=== PATIENT | female | born 1960 | race Caucasian/White ===

== ENCOUNTER 2016-10-20 15:41 | Observation (INO) | payer SELFPAY ==
[~2016-10-20] VITALS: Ht 162.6 cm; Wt 77.3 kg
[~2016-10-20 15:41] MED LIST: CETI5TAB2 PO; CIPR500T2 PO; CYCL1PAK PO; LEVO.1 PO; NORV10TA PO
[2016-10-20 15:42] VITALS: BP 151/82; PULSE 77; RESP 14; TEMP 97.7; O2SAT 97
[2016-10-20] MEDS ORDERED: VENTAER INH (16:47)
[2016-10-20] MEDS ORDERED: AMLO10 PO (16:47)
[2016-10-20] MEDS ORDERED: LEVO.1 PO (16:47)
[2016-10-20] MEDS ORDERED: EPINEPHrine HCL (1:1000) 1 MG/ML VIAL IM ONE (17:00)
[2016-10-20] MEDS ORDERED: DEXAMETHASONE SOD PHOS 20 MG/5 ML VIAL IM ONE (17:00)
[2016-10-20] MEDS ORDERED: diphenhydrAMINE HCL 50 MG/ML VIAL IV PUSH ONE (17:00)
[2016-10-20 17:28] LABS: AUTOMATED NEUTROPHIL # 3.6 TH/MM3 (1.8-7.7); BASOPHIL # 0.1 TH/MM3 (0-0.2); BASOPHIL % 1.1 % (0.0-2.0); EOSINOPHIL # 0.2 TH/MM3 (0-0.4); EOSINOPHIL % 3.1 % (0.0-4.0); HEMATOCRIT 29.9 % (35.0-46.0); HEMO FLAGS DIFF FINAL; LYMPH % 37.8 % (9.0-44.0); LYMPHOCYTE # 2.6 TH/MM3 (1.0-4.8); MEAN CELL VOLUME 87.3 FL (80.0-100.0); MEAN CORPUSCULAR HEMOGLOBIN 30.5 PG (27.0-34.0); MEAN CORPUSCULAR HGB CONC 34.9 % (32.0-36.0); MONO % 5.8 % (0.0-8.0); NEUT % 52.2 % (16.0-70.0); PLATELET COUNT 231 TH/MM3 (150-450); RED BLOOD COUNT 3.42 MIL/MM3 (4.00-5.30); RED CELL DISTRIBUTION WIDTH 15.7 % (11.6-17.2); WHITE BLOOD COUNT 6.8 TH/MM3 (4.0-11.0)
[2016-10-20 17:34] LABS: BACTERIA, URINE RARE /hpf; BLOOD, URINE NEG (NEG); COMMENT (UR) CULT NOT INDICATED; CULTURE IF INDICATED CULT NOT INDICATED; GLUCOSE,URINE NEG (NEG); KETONE, URINE NEG (NEG); MUCUS URINE FEW /lpf (OCC); NITRITE,URINE NEG (NEG); PH, URINE 5.5 (5.0-8.5); SQUAMOUS EPITHELIAL CELL URINE 1 /hpf (0-5); URINE COLOR LIGHT-YELLOW (YELLW/STRAW)
[2016-10-20 17:37] LABS: BICARBONATE 26.1 MEQ/L (21.0-32.0)
[2016-10-20 17:38] LABS: POTASSIUM 4.2 MEQ/L (3.5-5.1)
--- NOTE | 2016-10-20 18:00 | PD ---
HPI Chief Complaint: Complaint Time Seen by Provider: 16:31 Travel History International Travel<30 days: No Contact w/Intl Traveler<30days: No Traveled to known affect area: No History of Present Illness HPI 55-year-old female came to the emergency room with history of multiple unrelated complain like URI symptoms, lower back pain and cough. However as she was speaking her speech appeared quite dysarthric and she seemed to have lower lip and tongue swelling. Upon asking patient said that she has noted this swelling as well but wasn't sure. No history of fever or chills. Patient says she was diagnosed with UTI 1 month ago at [facility] and was treated with antibiotics then. She is finished with the antibiotic course. She did not appear to be in severe respiratory distress. [facility] Past Medical History Narrative Medical List of her past medical history was reviewed from the nursing note. Arthritis: Yes Asthma: Yes Blood Disorders: No Cancer: No Hypertension: Yes Implanted Vascular Access Dvce: No Musculoskeletal: Yes (BACK PAIN) Thyroid Disease: Yes Ulcer: Yes PNEUMOCCOCAL Vaccine (Year): 2 ?: Not Menopausal: Yes Past Surgical History Eye Surgery: Yes (LEFT EYE) Other Surgery: Yes (SUTURES IN RIGHT LEG) Social History Alcohol Use: Yes (2 X A YEAR) Tobacco Use: No Substance Use: No Allergies-Medications (Allergen,Severity, Reaction): Coded Allergies: Bactrim (Verified Allergy, Severe, 10/19/15) Tomato (Verified Allergy, Intermediate, 10/19/15) Uncoded Allergies: wool (Adverse Reaction, Intermediate, 05/02/10) Comments List of her allergies reviewed from the nursing note. Reported Meds & Prescriptions Reported Meds & Active Scripts Active Reported Ventolin Hfa 18 GM Inh (Albuterol Sulfate) 90 Mcg/Act Aer 1 Puff INH Q4H PRN Synthroid (Levothyroxine Sodium) 100 Mcg Tab 100 Mcg PO DAILY Norvasc (Amlodipine Besylate) 10 Mg Tab 10 Mg PO DAILY Narrative Medication List of her home medications reviewed from the nursing note. Review of Systems Except as stated in HPI: all other systems reviewed are Neg Physical Exam Narrative GENERAL: Awake, alert, mild distress SKIN: Warm and dry. Pale HEAD: Atraumatic. Normocephalic. EYES: Pupils equal and round. No scleral icterus. No injection or drainage. ENT: No nasal bleeding or discharge. Mucous membranes pink and moist. Lower lip swelling, tongue swelling, airway Mallampati 4, soft palate and uvula swollen NECK: Trachea midline. No JVD. CARDIOVASCULAR: Regular rate and rhythm. No murmur appreciated. RESPIRATORY: No accessory muscle use. Clear to auscultation. Breath sounds equal bilaterally. GASTROINTESTINAL: Abdomen soft, non-tender, nondistended. Hepatic and splenic margins not palpable. MUSCULOSKELETAL: No obvious deformities. No clubbing. No cyanosis. No edema. NEUROLOGICAL: Awake and alert. No obvious cranial nerve deficits. Motor grossly within normal limits. Normal speech. PSYCHIATRIC: Appropriate mood and affect; insight and judgment normal. Data Data Last Documented VS Vital Signs Date Time Temp Pulse Resp B/P Pulse Ox O2 Delivery O2 Flow Rate FiO2 10/20/16 18:05 68 18 10/20/16 18:05 128/87 97 Nasal Cannula 2 10/20/16 15:42 97.7 Orders Epinephrine (1:1000) Inj (Adrenalin (1:1 (10/20/16 17:00) Dexamethasone Inj (Decadron Inj) (10/20/16 17:00) Diphenhydramine Inj (Benadryl Inj) (10/20/16 17:00) Complete Blood Count With Diff (10/20/16 16:51) Basic Metabolic Panel (Bmp) (10/20/16 16:51) Urinalysis - C+S If Indicated (10/20/16 16:51) Type And Screen (10/20/16 16:53) Ct Soft Tiss Neck W/O Iv Cont (10/20/16 ) Admit Order (Ed Use Only) (10/20/16 18:20) Labs Laboratory Tests Test 10/20/16 16:58 White Blood Count 6.8 TH/MM3 Red Blood Count 3.42 MIL/MM3 Hemoglobin 10.4 GM/DL Hematocrit 29.9 % Mean Corpuscular Volume 87.3 FL Mean Corpuscular Hemoglobin 30.5 PG Mean Corpuscular Hemoglobin 34.9 % Concent Red Cell Distribution Width 15.7 % Platelet Count 231 TH/MM3 Mean Platelet Volume 8.2 FL Neutrophils (%) (Auto) 52.2 % Lymphocytes (%) (Auto) 37.8 % Monocytes (%) (Auto) 5.8 % Eosinophils (%) (Auto) 3.1 % Basophils (%) (Auto) 1.1 % Neutrophils # (Auto) 3.6 TH/MM3 Lymphocytes # (Auto) 2.6 TH/MM3 Monocytes # (Auto) 0.4 TH/MM3 Eosinophils # (Auto) 0.2 TH/MM3 Basophils # (Auto) 0.1 TH/MM3 CBC Comment DIFF FINAL Differential Comment Urine Color LIGHT-YELLOW Urine Turbidity CLEAR Urine pH 5.5 Urine Specific [place] 1.010 Urine Protein NEG mg/dL Urine Glucose (UA) NEG mg/dL Urine Ketones NEG mg/dL Urine Occult Blood NEG Urine Nitrite NEG Urine Bilirubin NEG Urine Urobilinogen LESS THAN 2.0 MG/DL Urine Leukocyte Esterase MOD Urine RBC LESS THAN 1 /hpf Urine WBC 6 /hpf Urine Squamous Epithelial 1 /hpf Cells Urine Bacteria RARE /hpf Urine Mucus FEW /lpf Microscopic Urinalysis Comment CULT NOT INDICATED Sodium Level 138 MEQ/L Potassium Level 4.2 MEQ/L Chloride Level 104 MEQ/L Carbon Dioxide Level 26.1 MEQ/L Anion Gap 8 MEQ/L Blood Urea Nitrogen 20 MG/DL Creatinine 1.65 MG/DL Estimat Glomerular Filtration 32 ML/MIN Rate Random Glucose 82 MG/DL Calcium Level 9.4 MG/DL Complement C4 27 MG/DL Blood Type A POSITIVE Antibody Screen NEGATIVE Blood Bank Comment MDM Medical Decision Making Medical Screen Exam Complete: Yes Emergency Medical Condition: Yes Medical Record Reviewed: Yes Differential Diagnosis Angioedema Narrative Course 5:56 PM patient was given IV Benadryl, subcutaneous epi and IM Decadron. Blood test results are back and patient has some renal insufficiency. I reevaluated the patient and her soft palate and uvula looks less swollen. Her tongue is still swollen. No respiratory distress. I have ordered a CT scan of her neck. Awaiting for it to be done and resulted. Case was signed over to the oncoming ER physician. Patient will most probably require admission. Critical Care Narrative Aggregate critical care time was 30 minutes. Time to perform other separately billable procedures was not included in the critical care time. My time did not include minutes spent treating any other patients simultaneously or on activities that did not directly contribute to the patient's treatment. The services I provided to this patient were to treat and/or prevent clinically significant deterioration that could result in: Angioedema of upper airway management I provided critical care services requiring my management, as noted below: Chart data review, documentation time, medication orders and management, vital sign assessments/reviewing monitor data, ordering and reviewing lab tests, ordering and interpreting/reviewing x-rays and diagnostic studies, care of the patient and discussion of the patient with the admitting physicians. Procedures EKG Prior to Arrival: No Diagnosis Primary Impression: Angioedema Qualified Code: T78.3XXA - Angioedema, initial encounter Additional Impression: Renal insufficiency Admitting Information Admitting Physician Requests: Admit Hardy Singh MD Oct 20, 2016 18:00
[2016-10-20 18:05] VITALS: BP 128/87; PULSE 69; RESP 18; O2SAT 97
--- NOTE | 2016-10-20 18:20 | PD ---
Physical Exam Narrative Received sign out from previous team to follow up CT scan results and admit patient for angioedema. 55yo F with CKD, HTN on norvasc here with URI symptoms found to have swelling in tongue and lower lip. Unknown how long this has been going on. Pt given epinephrine, dexamethasone and diphenhydramine and as per previous physician, her lower lip swelling has improved. Pt is speaking in complete sentences and lungs are clear. Pt has patent airway at this time. However, will admit to ICU under hospitalist for airway management. Discussed with Dr. Martinez and accepted. CT neck showed no acute findings on cervical spine CT. No adenopathy. Mucosal thickening right maxillary sinus. Calcifications in posterior oropharynx bilaterally of unknown etiology. Data Data Last Documented VS Vital Signs Date Time Temp Pulse Resp B/P Pulse Ox O2 Delivery O2 Flow Rate FiO2 10/20/16 18:05 68 18 10/20/16 18:05 128/87 97 Nasal Cannula 2 10/20/16 15:42 97.7 Orders Epinephrine (1:1000) Inj (Adrenalin (1:1 (10/20/16 17:00) Dexamethasone Inj (Decadron Inj) (10/20/16 17:00) Diphenhydramine Inj (Benadryl Inj) (10/20/16 17:00) Complete Blood Count With Diff (10/20/16 16:51) Basic Metabolic Panel (Bmp) (10/20/16 16:51) Urinalysis - C+S If Indicated (10/20/16 16:51) Type And Screen (10/20/16 16:53) Ct Soft Tiss Neck W/O Iv Cont (10/20/16 ) Admit Order (Ed Use Only) (10/20/16 18:20) Labs Laboratory Tests Test 10/20/16 16:58 White Blood Count 6.8 TH/MM3 Red Blood Count 3.42 MIL/MM3 Hemoglobin 10.4 GM/DL Hematocrit 29.9 % Mean Corpuscular Volume 87.3 FL Mean Corpuscular Hemoglobin 30.5 PG Mean Corpuscular Hemoglobin 34.9 % Concent Red Cell Distribution Width 15.7 % Platelet Count 231 TH/MM3 Mean Platelet Volume 8.2 FL Neutrophils (%) (Auto) 52.2 % Lymphocytes (%) (Auto) 37.8 % Monocytes (%) (Auto) 5.8 % Eosinophils (%) (Auto) 3.1 % Basophils (%) (Auto) 1.1 % Neutrophils # (Auto) 3.6 TH/MM3 Lymphocytes # (Auto) 2.6 TH/MM3 Monocytes # (Auto) 0.4 TH/MM3 Eosinophils # (Auto) 0.2 TH/MM3 Basophils # (Auto) 0.1 TH/MM3 CBC Comment DIFF FINAL Differential Comment Urine Color LIGHT-YELLOW Urine Turbidity CLEAR Urine pH 5.5 Urine Specific [place] 1.010 Urine Protein NEG mg/dL Urine Glucose (UA) NEG mg/dL Urine Ketones NEG mg/dL Urine Occult Blood NEG Urine Nitrite NEG Urine Bilirubin NEG Urine Urobilinogen LESS THAN 2.0 MG/DL Urine Leukocyte Esterase MOD Urine RBC LESS THAN 1 /hpf Urine WBC 6 /hpf Urine Squamous Epithelial 1 /hpf Cells Urine Bacteria RARE /hpf Urine Mucus FEW /lpf Microscopic Urinalysis Comment CULT NOT INDICATED Sodium Level 138 MEQ/L Potassium Level 4.2 MEQ/L Chloride Level 104 MEQ/L Carbon Dioxide Level 26.1 MEQ/L Anion Gap 8 MEQ/L Blood Urea Nitrogen 20 MG/DL Creatinine 1.65 MG/DL Estimat Glomerular Filtration 32 ML/MIN Rate Random Glucose 82 MG/DL Calcium Level 9.4 MG/DL Blood Type A POSITIVE Antibody Screen NEGATIVE Blood Bank Comment MDM Supervised Visit with ABHISHEK: No Diagnosis Primary Impression: Angioedema Qualified Code: T78.3XXA - Angioedema, initial encounter Additional Impression: Renal insufficiency Admitting Information Admitting Physician Requests: Admit Desiree Suarez DO Oct 20, 2016 18:20
--- NOTE | 2016-10-20 19:09 | RADRPT ---
EXAM DATE/TIME: 10/20/2016 18:22 [place] COMPARISON: No previous studies available for comparison. INDICATIONS : Swelling in throat for a month,trouble swallowing. RADIATION DOSE: 33.46 CTDIvol (mGy) MEDICAL HISTORY : Hypertension. Ulcers. Arthritis.Asthma, thyroid disease SURGICAL HISTORY : eye surgery ENCOUNTER: Initial ACUITY: 1 month PAIN SCORE: 0/10 LOCATION: neck TECHNIQUE: Volumetric scanning of the neck was performed. Using automated exposure control and adjustment of th e mA and/or kV according to patient size, radiation dose was kept as low as reasonably achievable to obtain optimal diagnostic quality images. FINDINGS: No airway obstructing lesions or foreign bodies are identified. No pathologically enlarged lymph node s are seen in the neck. Salivary glands are symmetric. There is mucosal thickening in the right maxil harriet sinus. Remainder of the paranasal sinuses are unremarkable. Mastoid air cells are clear. There i s moderate degenerative change in the cervical spine. Lung apices are clear. CONCLUSION: 1. No acute findings on cervical spine CT. No adenopathy. Mucosal thickening right maxillary sinus. C alcifications in the posterior oropharynx bilaterally of unknown etiology. Leodan Velasquez MD on October 20, 2016 at 19:03 Board Certified Radiologist. This report was verified electronically.
--- NOTE | 2016-10-20 19:36 | HHI.HP ---
[facility] Service [facility] Primary Care Physician No Primary Care Physician Admission Diagnosis Angioedema Diagnoses: Travel History International Travel<30 Days: No Contact w/Intl Traveler <30 Da: No Traveled to Known Affected Are: No Past Family Social History Allergies: Coded Allergies: Bactrim (Verified Allergy, Severe, 10/19/15) Tomato (Verified Allergy, Intermediate, 10/19/15) Uncoded Allergies: wool (Adverse Reaction, Intermediate, 05/02/10) Physical Exam Vital Signs Vital Signs Date Time Temp Pulse Resp B/P Pulse Ox O2 Delivery O2 Flow Rate FiO2 10/20/16 18:05 68 18 10/20/16 18:05 69 18 128/87 97 Nasal Cannula 2 10/20/16 15:42 97.7 77 14 151/82 97 Room Air Physical Exam GENERAL: This is a well-nourished, well-developed patient, in no apparent distress. SKIN: No rashes, ecchymoses or lesions. Cool and dry. HEAD: Atraumatic. Normocephalic. No temporal or scalp tenderness. EYES: Pupils equal round and reactive. Extraocular motions intact. No scleral icterus. No injection or drainage. ENT: Nose without bleeding, purulent drainage or septal hematoma. Throat without erythema, tonsillar hypertrophy or exudate. Uvula midline. Airway patent. NECK: Trachea midline. No JVD or lymphadenopathy. Supple, nontender, no meningeal signs. CARDIOVASCULAR: Regular rate and rhythm without murmurs, gallops, or rubs. RESPIRATORY: Clear to auscultation. Breath sounds equal bilaterally. No wheezes , rales, or rhonchi. GASTROINTESTINAL: Abdomen soft, non-tender, nondistended. No hepato-splenomegaly , or palpable masses. No guarding. MUSCULOSKELETAL: Extremities without clubbing, cyanosis, or edema. No joint tenderness, effusion, or edema noted. No calf tenderness. Negative Homans sign bilaterally. NEUROLOGICAL: Awake and alert. Cranial nerves II through XII intact. Motor and sensory grossly within normal limits. Five out of 5 muscle strength in all muscle groups. Normal speech. Laboratory Laboratory Tests Test 10/20/16 16:58 White Blood Count 6.8 Red Blood Count 3.42 Hemoglobin 10.4 Hematocrit 29.9 Mean Corpuscular Volume 87.3 Mean Corpuscular Hemoglobin 30.5 Mean Corpuscular Hemoglobin 34.9 Concent Red Cell Distribution Width 15.7 Platelet Count 231 Mean Platelet Volume 8.2 Neutrophils (%) (Auto) 52.2 Lymphocytes (%) (Auto) 37.8 Monocytes (%) (Auto) 5.8 Eosinophils (%) (Auto) 3.1 Basophils (%) (Auto) 1.1 Neutrophils # (Auto) 3.6 Lymphocytes # (Auto) 2.6 Monocytes # (Auto) 0.4 Eosinophils # (Auto) 0.2 Basophils # (Auto) 0.1 CBC Comment DIFF FINAL Differential Comment Urine Color LIGHT-YELLOW Urine Turbidity CLEAR Urine pH 5.5 Urine Specific [place] 1.010 Urine Protein NEG Urine Glucose (UA) NEG Urine Ketones NEG Urine Occult Blood NEG Urine Nitrite NEG Urine Bilirubin NEG Urine Urobilinogen LESS THAN 2.0 Urine Leukocyte Esterase MOD Urine RBC LESS THAN 1 Urine WBC 6 Urine Squamous Epithelial 1 Cells Urine Bacteria RARE Urine Mucus FEW Microscopic Urinalysis Comment CULT NOT INDICATED Sodium Level 138 Potassium Level 4.2 Chloride Level 104 Carbon Dioxide Level 26.1 Anion Gap 8 Blood Urea Nitrogen 20 Creatinine 1.65 Estimat Glomerular Filtration 32 Rate Random Glucose 82 Calcium Level 9.4 Blood Type A POSITIVE Antibody Screen NEGATIVE Blood Bank Comment Result Diagram: 10/20/16 1658 10/20/16 165 Physician Certification Order for Inpatient Services The services are ordered in accordance with Medicare regulations or non- Medicare payer requirements, as applicable. In the case of services not specified as inpatient-only, they are appropriately provided as inpatient services in accordance with the 2-midnight benchmark. days is the estimated time the patient will need to remain in the hospital, assuming treatment plan goals are met and no additional complications. Radha Aranda MD Oct 20, 2016 19:36
[2016-10-20] MEDS ORDERED: SODIUM CHLORIDE 0.9% FLUSH 5 ML FLUSH FLUSH PRN (19:45)
[2016-10-20] MEDS ORDERED: ONDANSETRON HCL 4 MG/2 ML VIAL IVP PRN (19:45)
[2016-10-20] MEDS ORDERED: MORPHINE SULFATE 4 MG/ML INJ IV PRN (19:45)
[2016-10-20] MEDS ORDERED: CHLORHEXIDINE GLUCONATE 2 % 1 PACK (2 CLOTHS) TOP PRN (19:45)
[2016-10-20] MEDS ORDERED: ACETAMINOPHEN 325 MG TAB PO PRN (19:45)
[2016-10-20] MEDS ORDERED: MISCELLANEOUS NURSING INFORMATION XX SCH (19:45)
[2016-10-20] MEDS ORDERED: BISACODYL 10 MG SUPP PR PRN (19:45)
[2016-10-20] MEDS ORDERED: cefTRIAXone INJ 1,000 MG in SODIUM CHLORIDE 0.9% INJ 100 ML IV SCH (20:00)
[2016-10-20] MEDS ORDERED: PANTOPRAZOLE SODIUM 40 MG VIAL IV PUSH SCH (20:00)
--- NOTE | 2016-10-20 20:26 | HHI.HP ---
[facility] No Primary Care Physician Admission Diagnosis Angioedema Diagnoses: (1) Angioedema Diagnosis: Principal (2) UTI (urinary tract infection) Diagnosis: Principal (3) Renal insufficiency Diagnosis: Principal (4) HTN (hypertension) Diagnosis: Principal Travel History International Travel<30 Days: No Contact w/Intl Traveler <30 Da: No Traveled to Known Affected Are: No History of Present Illness This is a 55-year-old female with a PMH of HTN and Hypothyroidism who presented to the ER with complaints of right flank pain, cough and congestion which has been ongoing x4 wks. Per pt was diagnosed w/ UTI 1 month ago while at [facility] and was given Cipro which she completed. While in ER, pt noted to have some difficulty w/ speech and evidence of angioedema w/ soft palate and uvula swelling. S/p Decadron, Benadryl and Epinephrine in ER. Pt without any complaints of lip swelling, no previous history of similar symptoms. Not on STEPHANIE -I at home. On arrival, BP 151/82, HR 77, O2 sat 97% on RA, Afebrile. CBC unremarkable. Creatinine 1.65, previously 1.17 on 10/20/15. UA with UTI. CT Neck with no acute findings. O2 sat stable in ER w/ no airway compromise. Review of Systems ROS: 14 point review of systems otherwise negative. Past Family Social History Past Medical History PMH: HTN and Hypothyroidism Past Surgical History PAST SURGICAL HISTORY: Left Eye Surgery Allergies: Coded Allergies: Bactrim (Verified Allergy, Severe, 10/19/15) Tomato (Verified Allergy, Intermediate, 10/19/15) Uncoded Allergies: wool (Adverse Reaction, Intermediate, 05/02/10) Family History PAST FAMILY HISTORY: Reviewed. No h/o DM or CAD Social History PAST SOCIAL HISTORY: Occasional alcohol. Negative for tobacco or drugs. Physical Exam Vital Signs Vital Signs Date Time Temp Pulse Resp B/P Pulse Ox O2 Delivery O2 Flow Rate FiO2 10/20/16 18:05 68 18 10/20/16 18:05 69 18 128/87 97 Nasal Cannula 2 10/20/16 15:42 97.7 77 14 151/82 97 Room Air Physical Exam PE: GENERAL: Middle-aged white female in no acute distress. Speaking in clear sentences. HEENT: PERRLA, EOMI. No scleral icterus or conjunctival pallor. No lid lag or facial droop. Speech/lip swelling improved. CARDIOVASCULAR: Regular rate and rhythm. No obvious murmurs to auscultation. No chest tenderness to palpation. RESPIRATORY: No obvious rhonchi or wheezing. Clear to auscultation. Breath sounds equal bilaterally. GASTROINTESTINAL: Abdomen soft, non-tender, nondistended. BS normal. MUSCULOSKELETAL: Extremities without clubbing, cyanosis, or edema. No obvious deformities. NEUROLOGICAL: Awake, alert and oriented x4. No focal neurologic deficits. Moving both upper and lower extremities spontaneously. Laboratory Laboratory Tests Test 10/20/16 16:58 White Blood Count 6.8 Red Blood Count 3.42 Hemoglobin 10.4 Hematocrit 29.9 Mean Corpuscular Volume 87.3 Mean Corpuscular Hemoglobin 30.5 Mean Corpuscular Hemoglobin 34.9 Concent Red Cell Distribution Width 15.7 Platelet Count 231 Mean Platelet Volume 8.2 Neutrophils (%) (Auto) 52.2 Lymphocytes (%) (Auto) 37.8 Monocytes (%) (Auto) 5.8 Eosinophils (%) (Auto) 3.1 Basophils (%) (Auto) 1.1 Neutrophils # (Auto) 3.6 Lymphocytes # (Auto) 2.6 Monocytes # (Auto) 0.4 Eosinophils # (Auto) 0.2 Basophils # (Auto) 0.1 CBC Comment DIFF FINAL Differential Comment Urine Color LIGHT-YELLOW Urine Turbidity CLEAR Urine pH 5.5 Urine Specific [place] 1.010 Urine Protein NEG Urine Glucose (UA) NEG Urine Ketones NEG Urine Occult Blood NEG Urine Nitrite NEG Urine Bilirubin NEG Urine Urobilinogen LESS THAN 2.0 Urine Leukocyte Esterase MOD Urine RBC LESS THAN 1 Urine WBC 6 Urine Squamous Epithelial 1 Cells Urine Bacteria RARE Urine Mucus FEW Microscopic Urinalysis Comment CULT NOT INDICATED Sodium Level 138 Potassium Level 4.2 Chloride Level 104 Carbon Dioxide Level 26.1 Anion Gap 8 Blood Urea Nitrogen 20 Creatinine 1.65 Estimat Glomerular Filtration 32 Rate Random Glucose 82 Calcium Level 9.4 Blood Type A POSITIVE Antibody Screen NEGATIVE Blood Bank Comment Result Diagram: 10/20/16165710/20/168 Assessment and Plan Problem List: (1) Angioedema ICD Code: T78.3XXA Status: Acute (2) UTI (urinary tract infection) ICD Code: N39.0 Status: Acute (3) Renal insufficiency ICD Code: N28.9 Status: Acute (4) HTN (hypertension) ICD Code: I10 Status: Acute Assessment and Plan A/P: 1. Angioedema: +dysarthria w/ soft palate and uvula swelling noted on arrival , O2 sat normal, s/p Decadron, Benadryl and Epinephrine w/ improvement, dysarthria now resolved. CT Neck w/ no acute findings, images reviewed by me. Will admit to ICU for close monitoring. Continue w/ Decadron, Benadryl and Protonix. IVF for hydration. 2. UTI: Recurrent. H/o UTI approx 1 month ago w/ completion of antibiotics. U/a w/ UTI. Start IV Rocephin. 3. Renal Insufficiency: Acute on Chronic. Creatinine 1.65, previously 1.17 on 10/20/15. IVF, repeat labs in am. 4. HTN: BP 150's on arrival, currently 128/87, HR 69. Will monitor. 5. DVT Prophylaxis: SCD/Teds. 6. Social work for d/c planning as needed. 7. Case discussed w/ ER physician at length. Problem Qualifiers (1) Angioedema: Qualified Code: T78.3XXA - Angioedema, initial encounter Radha Aranda MD Oct 20, 2016 20:26
--- NOTE | 2016-10-20 20:34 | PD.CONS ---
HPI Service Critical Care Medicine Consult Requested By Dr. Aranda Reason for Consult Angioedema? Posterior OP calcification Primary Care Physician No Primary Care Physician History of Present Illness 55-year-old female. Date of admission 10/20/2016. Date of consultation 2016. Past medical history includes HTN and Hypothyroidism who today she who presented to the ER with complaints of right flank pain, left knee pain cough and congestion which has been ongoing x4 wks. she was diagnosed with an infection 1 month ago while at [facility] and was given Cipro which she completed. She takes acetaminophen for knee pain. Denied urticaria. While in ER, pt noted to have some difficulty w/ speech and evidence of bradykinin induced angioedema w/ mucosal lip/tongue and uvula swelling. S/p Decadron 10 mg IM, Benadryl 50 mg IV and Epinephrine 0.3 mg I am in ER. CT neck revealed possible calcification post oropharynx. Airways patent. She is currently on nasal cannula distress. Creatinine 1.65, previously 1.17 on 10/20. UA with UTI. O2 sat stable in ER w/ no airway compromise. Review of Systems Constitutional: COMPLAINS OF: Fatigue, DENIES: Fever, Weight gain, Weight loss Endocrine: DENIES: Abnorml menstrual pattern Eyes: DENIES: Blurred vision, Double Vision Ears, nose, mouth, throat: COMPLAINS OF: Nasal discharge, Throat pain, Odynophagia, DENIES: Hearing loss, Oral lesions Respiratory: COMPLAINS OF: Cough, Sputum production, DENIES: Apneas, Shortness of breath Cardiovascular: DENIES: Chest pain Gastrointestinal: DENIES: Abdominal pain, Diarrhea Musculoskeletal: COMPLAINS OF: Joint pain, DENIES: Joint Swelling Integumentary: DENIES: Abnormal pigmentation Hematologic/lymphatic: DENIES: Bruising Immunologic/allergic: DENIES: Urticaria Neurologic: DENIES: Abnormal gait Psychiatric: DENIES: Anxiety, Confusion Past Family Social History Allergies: Coded Allergies: Bactrim (Verified Allergy, Severe, 10/19/15) Tomato (Verified Allergy, Intermediate, 10/19/15) Uncoded Allergies: wool (Adverse Reaction, Intermediate, 05/02/10) Past Medical History Hypertension Hypothyroidism Mild intermittent asthma Gastroesophageal reflux disease Osteoarthritis Past Surgical History Left eye Left knee Reported Medications Synthroid 100 g daily Norvasc 10 mg daily Albuterol as needed Active Ordered Medications Reviewed in EMR Family History Mother and father is not contributory to history of present illness Social History Denies Tobacco, alcohol and IV drug use Physical Exam Vital Signs Vital Signs Date Time Temp Pulse Resp B/P Pulse Ox O2 Delivery O2 Flow Rate FiO2 10/20/16 18:05 68 18 10/20/16 18:05 69 18 128/87 97 Nasal Cannula 2 10/20/16 15:42 97.7 77 14 151/82 97 Room Air Physical Exam GENERAL: 55-year-old female, currently resting in bed in no acute distress SKIN: Warm and dry. No rash HEAD: Atraumatic. Normocephalic. EYES: Pupils equal and round around 3 mm bilaterally and reactive. No scleral icterus. No injection or drainage. ENT: No nasal bleeding or discharge. Mucous membranes pink and moist. Oropharynx is patent. No erythema or swelling noted. Lips are not swollen. Tongue is not swollen. Uvula is midline and not swollen appreciated NECK: Trachea midline. No JVD. CARDIOVASCULAR: Regular rate and rhythm. S1, S2. No S4. RESPIRATORY: Clear to auscultation. Breath sounds equal bilaterally. GASTROINTESTINAL: Abdomen soft, non-tender, nondistended. Hypoactive bowel sounds MUSCULOSKELETAL: Extremities without significant peripheral edema. No obvious deformities. NEUROLOGICAL: Awake and alert. No obvious cranial nerve deficits. Motor grossly within normal limits. Five out of 5 muscle strength in the arms and legs. Normal speech. PSYCHIATRIC: Appropriate mood and affect; insight and judgment normal. Laboratory Laboratory Tests Test 10/20/16 16:58 White Blood Count 6.8 Red Blood Count 3.42 Hemoglobin 10.4 Hematocrit 29.9 Mean Corpuscular Volume 87.3 Mean Corpuscular Hemoglobin 30.5 Mean Corpuscular Hemoglobin 34.9 Concent Red Cell Distribution Width 15.7 Platelet Count 231 Mean Platelet Volume 8.2 Neutrophils (%) (Auto) 52.2 Lymphocytes (%) (Auto) 37.8 Monocytes (%) (Auto) 5.8 Eosinophils (%) (Auto) 3.1 Basophils (%) (Auto) 1.1 Neutrophils # (Auto) 3.6 Lymphocytes # (Auto) 2.6 Monocytes # (Auto) 0.4 Eosinophils # (Auto) 0.2 Basophils # (Auto) 0.1 CBC Comment DIFF FINAL Differential Comment Urine Color LIGHT-YELLOW Urine Turbidity CLEAR Urine pH 5.5 Urine Specific [place] 1.010 Urine Protein NEG Urine Glucose (UA) NEG Urine Ketones NEG Urine Occult Blood NEG Urine Nitrite NEG Urine Bilirubin NEG Urine Urobilinogen LESS THAN 2.0 Urine Leukocyte Esterase MOD Urine RBC LESS THAN 1 Urine WBC 6 Urine Squamous Epithelial 1 Cells Urine Bacteria RARE Urine Mucus FEW Microscopic Urinalysis Comment CULT NOT INDICATED Sodium Level 138 Potassium Level 4.2 Chloride Level 104 Carbon Dioxide Level 26.1 Anion Gap 8 Blood Urea Nitrogen 20 Creatinine 1.65 Estimat Glomerular Filtration 32 Rate Random Glucose 82 Calcium Level 9.4 Blood Type A POSITIVE Antibody Screen NEGATIVE Blood Bank Comment Result Diagram: 10/20/16 1658 10/20/16 1658 Imaging Last Impressions Neck CT 10/20/16 0000 Signed Impressions: Service Date/Time: , October 20, 2016 18:22 - CONCLUSION: 1. No acute findings on cervical spine CT. No adenopathy. Mucosal thickening right maxillary sinus. Calcifications in the posterior oropharynx bilaterally of unknown etiology. Leodan Velasquez MD Assessment and Plan Assessment and Plan Neuro/Psych: Acetaminophen for fever [place]/morphine for pain management CV: History of hypertension Angioedema bradykinin induced? Home medication is Norvasc 10 mg by mouth daily. This is been held. Current normal saline at 100 cc an hour. Status post 10 mg Decadron IM, epinephrine 0.3 mg IM and Benadryl 50 mg IV 1. On scheduled H1/H2 blockers and steroids as per primary team.. Monitor her airway was 24 hours. Resp: Nasal cannula to maintain saturations greater than equal to 92% Incentive spirometry while awake CT neck revealed some questionable consultation posterior pharynx. There was currently patent without lip swelling. Possible ENT evaluation. Not indicated stat. GI: History of gastroesophageal reflux disease Currently nothing by mouth. Pepcid for GI prophylaxis : Maciel if indicated for accurate I's and O's Endo: Hypothyroidism Continue Synthroid 100 g by mouth daily Renal: Acute on chronic kidney injury stage II Hydrate with fluids. Recheck creatinine in a.m. Heme: Normocytic anemia Recheck CBC in AM. Monitor trends ID: UTI Placed on Rocephin by primary team. Day #1. Check urine culture Msk: Osteoarthritis left knee PT evaluate and treat FEN: Replace electrolytes as clinically indicated Access - Utilize peripheral IV. Central line if indicated Prophylaxis - GI - Pepcid - DVT - SCD/low risk for DVT Critical Care: The total care time was 45 minutes. Time to perform other separately billable procedures was not included in the critical care time. Level II consult. Code Status Full code Discussed Condition With ED physician. Dr. Suarez. Patient does not meet ICU criteria. We will sign off. cAll if questions arise. Nba Skaggs MD Oct 20, 2016 20:34
[2016-10-20] MEDS: SODIUM CHLOR 0.9% 1000 ML INJ 1,000 ML IV SCH (20:43)
[2016-10-20] MEDS: diphenhydrAMINE HCL 50 MG/ML VIAL IV PUSH SCH (20:44)
[2016-10-20] MEDS: FAMOTIDINE 20 MG/2 ML VIAL IV PUSH SCH (22:30)
[2016-10-20] MEDS: SODIUM CHLORIDE 0.9% FLUSH 5 ML FLUSH FLUSH SCH (22:30)
[2016-10-21] VITALS (8 sets, daily range): BP systolic 115–148; BP diastolic 65–94; PULSE 67–80; RESP 12–21; TEMP 96.9–98.4; O2SAT 97–100
[2016-10-21] MEDS: diphenhydrAMINE HCL 50 MG/ML VIAL IV PUSH SCH ×4 (00:43→11:37)
[2016-10-21] MEDS: methylPREDNISolone SOD SUCC 40 MG/1 ML VIAL IV PUSH SCH ×4 (00:44→21:40)
[2016-10-21] MEDS: CHLORHEXIDINE GLUCONATE 2 % 1 PACK (2 CLOTHS) TOP SCH (04:00)
[2016-10-21 04:20] LABS: AUTOMATED NEUTROPHIL # 6.9 TH/MM3 (1.8-7.7); BASOPHIL % 0.5 % (0.0-2.0); EOSINOPHIL % 0.2 % (0.0-4.0); HEMATOCRIT 30.1 % (35.0-46.0); HEMO FLAGS DIFF FINAL; LYMPH % 12.3 % (9.0-44.0); MEAN CELL VOLUME 88.6 FL (80.0-100.0); MEAN CORPUSCULAR HEMOGLOBIN 29.9 PG (27.0-34.0); MEAN CORPUSCULAR HGB CONC 33.7 % (32.0-36.0); MONO % 1.1 % (0.0-8.0); NEUT % 85.9 % (16.0-70.0); PLATELET COUNT 230 TH/MM3 (150-450); RED CELL DISTRIBUTION WIDTH 15.9 % (11.6-17.2)
[2016-10-21 05:35] LABS: ALKALINE PHOSPHATASE 60 U/L (45-117); ALT (GPT) 37 U/L (10-53); ANION GAP 11 MEQ/L (5-15); AST (GOT) 51 U/L (15-37); BICARBONATE 22.7 MEQ/L (21.0-32.0); BLOOD UREA NITROGEN 17 MG/DL (7-18); CHLORIDE 105 MEQ/L (98-107); GLOMERULAR FILTRATION RATE 32 ML/MIN (>89); SODIUM (NA) 139 MEQ/L (136-145); TOTAL BILIRUBIN ADULT 0.3 MG/DL (0.2-1.0)
[2016-10-21 05:36] LABS: POTASSIUM 4.3 MEQ/L (3.5-5.1)
[2016-10-21] MEDS ORDERED: LEVOTHYROXINE SODIUM 100 MCG TAB PO SCH (06:00)
[2016-10-21] MEDS: SODIUM CHLOR 0.9% 1000 ML INJ 1,000 ML IV SCH ×2 (07:33→15:16)
[2016-10-21] MEDS: SODIUM CHLORIDE 0.9% FLUSH 5 ML FLUSH FLUSH SCH ×2 (09:04→21:41)
[2016-10-21] MEDS: FAMOTIDINE 20 MG/2 ML VIAL IV PUSH SCH ×2 (09:29→21:41)
[2016-10-21] MEDS: ACETAMINOPHEN/HYDROcodone 325 MG/5 MG TAB PO PRN ×3 (11:39→21:41)
--- NOTE | 2016-10-21 13:07 | RADRPT ---
EXAM DATE/TIME: 10/21/2016 12:16 [facility] COMPARISON: No previous studies available for comparison. INDICATIONS : Left knee pain, fall. MEDICAL HISTORY : None. SURGICAL HISTORY : None. ENCOUNTER: Initial ACUITY: 2 months PAIN SCORE: 5/10 LOCATION: Left lateral knee FINDINGS: Four view examination of the left knee demonstrates no evidence of fracture or dislocation. Bony min eralization is normal. The articular surfaces are intact. The suprapatellar soft tissues have a nor mal configuration. CONCLUSION: Negative for fracture or dislocation. Follow up in 7-10 days is suggested if symptoms persist.. Conor Franco MD FACR on October 21, 2016 at 13:04 Board Certified Radiologist. This report was verified electronically.
--- NOTE | 2016-10-21 13:18 | HHI.PR ---
Subjective Remarks Follow-up for angioedema. The patient reports her lip and tongue swelling continues to improve. She's been able to swallow and eat eggs for breakfast. She states she still has a little problem swallowing harder things. She feels fullness/congestion in her upper chest and neck. She denies any problems breathing. She states she was on amoxicillin about a month ago for a cold she had. Otherwise she denies any new medications. She does not currently have a PCP. She is complaining of chronic lower back pain. She states that she had from fall about a month ago, and has been having left knee pain and swelling since then. Objective Vitals Vital Signs Date Time Temp Pulse Resp B/P Pulse Ox O2 Delivery O2 Flow Rate FiO2 10/21/16 08:00 80 15 128/73 98 Nasal Cannula 2 10/21/16 05:06 67 12 118/68 99 Nasal Cannula 2 10/21/16 00:42 72 17 122/83 97 Nasal Cannula 2 10/21/16 00:40 69 15 10/20/16 18:05 68 18 10/20/16 18:05 69 18 128/87 97 Nasal Cannula 2 10/20/16 15:42 97.7 77 14 151/82 97 Room Air Result Diagram: 10/21/16 0356 10/21/16 0356 Imaging Last Impressions Neck CT 10/20/16 0000 Signed Impressions: Service Date/Time: October 18:22 - CONCLUSION: 1. No acute findings on cervical spine CT. No adenopathy. Mucosal thickening right maxillary sinus. Calcifications in the posterior oropharynx bilaterally of unknown etiology. Leodan Velasquez MD Objective Remarks GENERAL: Well-developed well-nourished. In no acute distress. SKIN: Warm and dry. No lesions noted. HEENT: Normocephalic. Pupils equal and round. Mucous membranes pink and moist. Mild lip and tongue swelling. Airway patent. CARDIOVASCULAR: Regular rate and rhythm. No murmur appreciated. RESPIRATORY: No accessory muscle use. Clear to auscultation. Breath sounds equal bilaterally. GASTROINTESTINAL: Abdomen soft, non-tender, nondistended. Bowel sounds x4. MUSCULOSKELETAL: Left knee with a small area of swelling inferior to the left patella. No clubbing or cyanosis. No edema. NEUROLOGICAL: Awake and alert. No focal neurological deficits. Moves upper and lower extremities spontaneously. Normal speech. PSYCHIATRIC: Appropriate mood and affect; insight and judgment normal. A/P Problem List: (1) Angioedema ICD Code: T78.3XXA Status: Acute (2) Renal insufficiency ICD Code: N28.9 Status: Acute (3) HTN (hypertension) ICD Code: I10 Status: Chronic Assessment and Plan 55-year-old female with past medical history of HTN and hypothyroidism who presented with multiple medical complaints, but primarily oral swelling Angioedema: +dysarthria w/ soft palate and uvula swelling noted on arrival, O2 sat normal, s/p Decadron, Benadryl and Epinephrine w/ improvement, dysarthria now resolved. CT Neck w/ no acute findings. Continue w/ IV Solu-Medrol, IV Protonix, IV Benadryl, IV famotidine. Symptoms continue to improve, tolerating diet, no speech or swallowing difficulty Abnormal UA: No specific urinary complaints. Urine not sent for culture. Received IV Rocephin 1. No further antibiotics indicated. HONG on CKD stage III: Creatinine 1.65, previously 1.17 on 10/20/15. Given IVF, no improvement with creatinine on repeat BMP. HTN: Controlled currently. Would hold off on amlodipine with angioedema. Monitor. Hypothyroidism: Chronic. Check TSH. Continue home levothyroxine dose for now. Left knee pain and swelling after recent fall: Check x-ray to rule out fracture. Otherwise plan for OTC pain control. Chronic lower back pain: Check lumbar x-ray. Needs outpatient PCP follow-up, case management consulted. DVT Prophylaxis: SCD/Teds. Written by Hamzah Campbell, acting as scribe for Dr. Issa on 10/21/16 at 13:24. The documentation accurately reflects the work performed [id number] by me Dr. Issa on 10/21/16 at 13:24. Discharge Planning Discharge planning later today if workup remains negative and patient remained stable. Would benefit from community clinic follow-up, case management consulted. Problem Qualifiers (1) Angioedema: Qualified Code: T78.3XXA - Angioedema, initial encounter (2) HTN (hypertension): Qualified Code: I10 - Essential hypertension Hamzah Campbell Oct 21, 2016 13:18 Yakelin Issa MD Oct 21, 2016 16:49
--- NOTE | 2016-10-21 13:26 | RADRPT ---
EXAM DATE/TIME: 10/21/2016 12:04 [facility] COMPARISON: No previous studies available for comparison. INDICATIONS : lower back pain, fall. MEDICAL HISTORY : None. SURGICAL HISTORY : None. ENCOUNTER: Initial ACUITY: 2 months PAIN SCORE: 6/10 LOCATION: Bilateral lumbar FINDINGS: There are five lumbar type vertebral bodies visualized. There is good preservation of vertebral body heights. There is minimal loss of disc space height at L5-S1. Mild facet disease is evident. CONCLUSION: Loss of disc space height at L5-S1 with mild degenerative changes in the facets. Conor Franco MD FACR on October 21, 2016 at 13:13 Board Certified Radiologist. This report was verified electronically.
[2016-10-21] MEDS ORDERED: LEVOTHYROXINE SODIUM 100 MCG VIAL IV PUSH ONE (14:00)
[2016-10-21] MEDS ORDERED: diphenhydrAMINE HCL 50 MG/ML VIAL IV PUSH PRN (15:45)
[2016-10-21 16:08] LABS: HEMOGLOBIN A1a 1.4 %; HEMOGLOBIN A1b 1.5 %; HEMOGLOBIN Ao 84.7 %; HEMOGLOBIN LA1C 2.7 %; HEMOGLOBIN P3 3.7 %
[2016-10-22 01:11] VITALS: BP 135/86; PULSE 67; RESP 21; TEMP 98.4; O2SAT 99
[2016-10-22] MEDS: SODIUM CHLOR 0.9% 1000 ML INJ 1,000 ML IV SCH (01:55)
[2016-10-22] MEDS: CHLORHEXIDINE GLUCONATE 2 % 1 PACK (2 CLOTHS) TOP SCH (03:09)
[2016-10-22 03:14] VITALS: PULSE 66
[2016-10-22] MEDS ORDERED: LEVOTHYROXINE SODIUM 75 MCG TAB PO SCH (06:00)
[2016-10-22] MEDS ORDERED: LEVOTHYROXINE SODIUM 100 MCG TAB PO SCH (06:00)
[2016-10-22 07:06] LABS: ALKALINE PHOSPHATASE 62 U/L (45-117); ALT (GPT) 31 U/L (10-53); ANION GAP 9 MEQ/L (5-15); AST (GOT) 32 U/L (15-37); BICARBONATE 25.4 MEQ/L (21.0-32.0); BLOOD UREA NITROGEN 18 MG/DL (7-18); CHLORIDE 107 MEQ/L (98-107); FREE T4 0.22 NG/DL (0.76-1.46); GLOMERULAR FILTRATION RATE 36 ML/MIN (>89); HDL CHOLESTEROL 56.1 MG/DL (40.0-60.0); LDL CHOLESTEROL 299 MG/DL (0-99); POTASSIUM 3.9 MEQ/L (3.5-5.1); SODIUM (NA) 141 MEQ/L (136-145); TOTAL BILIRUBIN ADULT 0.3 MG/DL (0.2-1.0)
--- NOTE | 2016-10-22 07:38 | HHI.PR ---
Subjective Remarks Follow-up for angioedema. Patient reports she has been taking levothyroxine recently secondary to cost. She has noticed swelling of her lower extremities and face recently. She denies any swallowing difficulties. Objective Vitals Vital Signs Date Time Temp Pulse Resp B/P Pulse Ox O2 Delivery O2 Flow Rate FiO2 10/22/16 03:14 66 10/22/16 01:11 98.4 67 21 135/86 99 10/21/16 20:01 98.4 75 21 125/75 99 10/21/16 18:17 72 10/21/16 17:34 96.9 69 18 115/65 100 10/21/16 16:00 72 16 145/86 98 Room Air 10/21/16 12:00 68 16 123/82 98 Room Air 10/21/16 08:00 80 15 128/73 98 Nasal Cannula 2 I/O 10/21/16 10/21/16 10/21/16 10/22/16 10/22/16 10/22/16 07:00 15:00 23:00 07:00 15:00 23:00 Intake Total 990 ml Output Total 800 ml Balance 190 ml Intake Oral 990 ml Output Urine Total 800 ml Result Diagram: 10/21/16 0356 10/22/16 0602 Imaging Last Impressions Lumbar Spine X-Ray 10/21/16 0000 Signed Impressions: Service Date/Time: Friday, October 21, 2016 12:04 - CONCLUSION: Loss of disc space height at L5-S1 with mild degenerative changes in the facets. Conor Franco MD FACR Knee X-Ray 10/21/16 0000 Signed Impressions: Service Date/Time: Friday, October 21, 2016 12:16 - CONCLUSION: Negative for fracture or dislocation. Follow up in 7-10 days is suggested if symptoms persist.. Conor Franco MD FACR Neck CT 10/20/16 0000 Signed Impressions: Service Date/Time: October 18:22 - CONCLUSION: 1. No acute findings on cervical spine CT. No adenopathy. Mucosal thickening right maxillary sinus. Calcifications in the posterior oropharynx bilaterally of unknown etiology. Leodan Velasquez MD Objective Remarks GENERAL: Well-developed well-nourished. In no acute distress. SKIN: Warm and dry. No lesions noted. HEENT: Normocephalic. Pupils equal and round. Mucous membranes pink and moist. Airway patent. Prominent thyroid gland. CARDIOVASCULAR: Regular rate and rhythm. No murmur appreciated. RESPIRATORY: No accessory muscle use. Clear to auscultation. Breath sounds equal bilaterally. GASTROINTESTINAL: Abdomen soft, non-tender, nondistended. Bowel sounds x4. MUSCULOSKELETAL: No obvious deformities. No clubbing or cyanosis. Mild nonpitting edema. NEUROLOGICAL: Awake and alert. No focal neurological deficits. Moves upper and lower extremities spontaneously. Normal speech. PSYCHIATRIC: Appropriate mood and affect; insight and judgment normal. A/P Problem List: (1) Angioedema ICD Code: T78.3XXA Status: Acute (2) Renal insufficiency ICD Code: N28.9 Status: Acute (3) HTN (hypertension) ICD Code: I10 Status: Chronic (4) Hypothyroidism ICD Code: E03.9 Status: Chronic (5) Myxedema ICD Code: E03.9 Status: Acute Assessment and Plan 55-year-old female with past medical history of HTN and hypothyroidism who presented with multiple medical complaints, but primarily oral swelling Myxedema with Angioedema: Presented with oropharyngeal swelling, improved with treatment. Likely secondary to uncontrolled hypothyroidism. CT Neck w/ no acute findings. S/P IV Solu-Medrol, IV Protonix, IV Benadryl, IV famotidine. Symptoms continue to improve, tolerating diet, no speech or swallowing difficulty. TSH severely elevated, T4 0.22. Resume previous levothyroxine dose and strongly recommended to the patient to follow-up with PCP for continued management. Abnormal UA: No specific urinary complaints. Urine not sent for culture. Received IV Rocephin 1. No further antibiotics indicated. HONG on CKD stage III: Creatinine 1.65, previously 1.17 on 10/20/15. Improved to 1.49 with IVF. Encouraged oral hydration. HTN: Controlled currently off amlodipine, would not resume especially with edema as above. Hypothyroidism: Uncontrolled with myxedema secondary to noncompliance. Resume home levothyroxine dose. Renal function improving. LFTs within normal limits. Hemoglobin A1c 5.5. Hyperlipidemia. Left knee pain and swelling after recent fall: Knee x-ray with no fracture. Recommend OTC pain control. Chronic lower back pain: Checked lumbar x-ray, mild degenerative changes. Needs outpatient PCP follow-up, case management consulted. DVT Prophylaxis: SCD/Teds. Written by Hamzah Campbell, acting as scribe for Dr. Issa on 10/22/16 at 07:38. The documentation accurately reflects the work performed [id number] by me Dr. Issa on 10/22/16 at 07:38. Discharge Planning Discharge patient to home Condition on discharge: Improved Heart healthy Diet as tolerated Regular activity Rx written: Levothyroxine, Lipitor Follow-up with primary care physician Problem Qualifiers (1) Angioedema: Qualified Code: T78.3XXA - Angioedema, initial encounter (2) HTN (hypertension): Qualified Code: I10 - Essential hypertension (3) Hypothyroidism: Qualified Code: E03.9 - Hypothyroidism, unspecified type Hamzah Campbell Oct 22, 2016 07:38 Yakelin Issa MD Oct 22, 2016 14:30
[2016-10-22] MEDS ORDERED: LEVO.1 PO (07:41)
[2016-10-22] MEDS ORDERED: LIPI10TA PO (07:41)
[2016-10-22 08:00] VITALS: BP 134/81; PULSE 66; RESP 20; TEMP 96.1; O2SAT 98
[2016-10-22 08:14] VITALS: PULSE 69
[2016-10-22] MEDS ORDERED: PANTOPRAZOLE SOD 40 MG DELAYED RELEASE TAB PO SCH (09:00)
[2016-10-22] MEDS: methylPREDNISolone SOD SUCC 40 MG/1 ML VIAL IV PUSH SCH (09:03)
[2016-10-22] MEDS: SODIUM CHLORIDE 0.9% FLUSH 5 ML FLUSH FLUSH SCH (09:03)
[2016-10-22] MEDS: FAMOTIDINE 20 MG/2 ML VIAL IV PUSH SCH (09:03)
[2016-10-22 12:00] VITALS: BP 125/83; PULSE 72; RESP 20; TEMP 96.5; O2SAT 99
[2016-10-22] MEDS ORDERED: ATORVASTATIN 10 MG TAB PO SCH (21:00)
== END 2016-10-22 14:27 | disposition home or self-care (01) ==
LOC: NEPA 15:41 → INTOOBSV 18:22 → NEDA 18:22 → NEDH 10-21 02:45 → NEPGCP 10-21 16:27
PROVIDERS: ADMIT Hospitalist; ATTEND Hospitalist
DX: T78.3XXA Angioneurotic edema, initial encounter (principal); J45.20 Mild intermittent asthma, uncomplicated; I12.9 Hypertensive chronic kidney disease with stage 1 through stage 4 chronic kidney disease, or unspecified chronic kidney disease; N18.3 Chronic kidney disease, stage 3 (moderate); N17.9 Acute kidney failure, unspecified; N39.0 Urinary tract infection, site not specified; M54.5 Low back pain; G89.29 Other chronic pain; E03.9 Hypothyroidism, unspecified; D64.9 Anemia, unspecified; E78.5 Hyperlipidemia, unspecified; K21.9 Gastro-esophageal reflux disease without esophagitis; M17.12 Unilateral primary osteoarthritis, left knee; Z79.899 Other long term (current) drug therapy; Z91.19 Patient's noncompliance with other medical treatment and regimen
CPT/HCPCS: 70490; 72110; 73564; 80048; 80053; 80061; 81001; 83036; 84439; 84443; 85025; 86160; 86850; 86900; 86901; 96372; 96374; 99291; G0378; J0171; J0696; J1100; J1200; J2920; J7030

== ENCOUNTER 2017-03-16 19:59 | Emergency (ER) | payer SELFPAY ==
[~2017-03-16 19:59] MED LIST changes: -CETI5TAB2 PO; -CIPR500T2 PO; -CYCL1PAK PO; +LIPI10TA PO; -NORV10TA PO; +VENTAER INH
[2017-03-16 20:01] VITALS: BP 119/91; PULSE 78; RESP 16; TEMP 98; O2SAT 99
== END 2017-03-16 23:00 | disposition left against medical advice (07) ==
LOC: NED 19:59
DX: R10.9 Unspecified abdominal pain (principal)
CPT/HCPCS: 99281

== ENCOUNTER 2017-06-06 18:09 | Emergency (ER) | payer SELFPAY ==
[~2017-06-06] VITALS: Ht 162.6 cm; Wt 70.0 kg
[2017-06-06 18:25] VITALS: BP 174/98; PULSE 65; RESP 17; TEMP 99; O2SAT 96
[2017-06-06] MEDS ORDERED: NORV2.5T PO (18:30)
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
--- NOTE | 2017-06-06 20:05 | RADRPT ---
EXAM DATE/TIME: 06/06/2017 19:26 [facility] COMPARISON: No previous studies available for comparison. INDICATIONS : RADIATION DOSE: 56.40 CTDIvol (mGy) MEDICAL HISTORY : Hypertension. SURGICAL HISTORY : None. ENCOUNTER: Initial ACUITY: 1 day PAIN SCALE: 0/10 LOCATION: cranial TECHNIQUE: Multiple contiguous axial images were obtained of the head. Using automated exposure control and adj ustment of the mA and/or kV according to patient size, radiation dose was kept as low as reasonably a chievable to obtain optimal diagnostic quality images. DICOM format image data is available electro nically for review and comparison. FINDINGS: CEREBRUM: The ventricles are normal for age. No evidence of midline shift, mass lesion, hemorrhage or acute in farction. No extra-axial fluid collections are seen. POSTERIOR FOSSA: The cerebellum and brainstem are intact. The 4th ventricle is midline. The cerebellopontine angle i s unremarkable. EXTRACRANIAL: The visualized portion of the orbits is intact. SKULL: The calvaria is intact. No evidence of skull fracture. CONCLUSION: No acute intracranial abnormality demonstrated. Carlos Alberto Mccoy MD on June 06, 2017 at 20:04 Board Certified Radiologist. This report was verified electronically.
[2017-06-06 20:48] LABS: AUTOMATED NEUTROPHIL # 3.8 TH/MM3 (1.8-7.7); BASOPHIL # 0.1 TH/MM3 (0-0.2); EOSINOPHIL # 0.2 TH/MM3 (0-0.4); EOSINOPHIL % 3.6 % (0.0-4.0); HEMATOCRIT 35.6 % (35.0-46.0); HEMO FLAGS DIFF FINAL; LYMPH % 34.3 % (9.0-44.0); LYMPHOCYTE # 2.4 TH/MM3 (1.0-4.8); MEAN CELL VOLUME 83.9 FL (80.0-100.0); MEAN CORPUSCULAR HEMOGLOBIN 27.4 PG (27.0-34.0); MEAN CORPUSCULAR HGB CONC 32.6 % (32.0-36.0); MONO % 6.7 % (0.0-8.0); NEUT % 54.4 % (16.0-70.0); PLATELET COUNT 322 TH/MM3 (150-450); RED BLOOD COUNT 4.25 MIL/MM3 (4.00-5.30); RED CELL DISTRIBUTION WIDTH 15.4 % (11.6-17.2); WHITE BLOOD COUNT 6.9 TH/MM3 (4.0-11.0)
[2017-06-06 20:51] LABS: ALKALINE PHOSPHATASE 74 U/L (45-117); ALT (GPT) 15 U/L (10-53); TOTAL BILIRUBIN ADULT 0.3 MG/DL (0.2-1.0)
[2017-06-06 20:57] LABS: ANION GAP 9 MEQ/L (5-15); AST (GOT) 26 U/L (15-37); BICARBONATE 25.6 MEQ/L (21.0-32.0); BLOOD UREA NITROGEN 16 MG/DL (7-18); CHLORIDE 104 MEQ/L (98-107); GLOMERULAR FILTRATION RATE 57 ML/MIN (>89); SODIUM (NA) 139 MEQ/L (136-145)
[2017-06-06 20:58] LABS: ALCOHOL LESS THAN 3 MG/DL (0-5)
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
[2017-06-06 22:47] LABS: BLOOD, URINE NEG (NEG); COMMENT (UR) CULT NOT INDICATED; CULTURE IF INDICATED CULT NOT INDICATED; GLUCOSE,URINE NEG (NEG); KETONE, URINE NEG (NEG); NITRITE,URINE NEG (NEG); PH, URINE 6.5 (5.0-8.5); URINE COLOR COLORLESS (YELLW/STRAW)
[2017-06-07 05:50] VITALS: BP 124/61; PULSE 63; RESP 17
[2017-06-07 10:08] VITALS: BP 128/79; PULSE 80; RESP 18; O2SAT 100
--- NOTE | 2017-06-07 12:44 | PD ---
History of Present Illness Chief Complaint: Psychiatric Symptoms Time Seen by Provider: 12:45 Travel History International Travel<30 Days: No Contact w/Intl Traveler<30days: No Known affected area: No Legal Status Legal Status: [place] Act Signed By: Catrachita Crawford Act Comment: [facility] [address] [facility]06/06/17@1521 History of Present Illness: 56-year-old female evaluated under [facility] a order initiated by patient's daughter. Patient is indeed paranoid and experiencing auditory hallucinations. However, she is calm, pleasant and cooperative. She is willing to take medication for these hallucinations and paranoia. 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 She has been to her for over 20 years and has a place to go. She adamantly denies any suicidal or homicidal ideation, plan or intent. This physician believes the least restrictive alternative is to provide antipsychotic medicine to treat the patient and she can follow up on an outpatient basis. Patient has been observed and evaluated in the emergency department over the last 18 hours. PFSH Past Medical History Arthritis: Yes Asthma: Yes Blood Disorders: No Anxiety: No Depression: No Heart Rhythm Problems: No Cancer: No Cardiovascular Problems: No High Cholesterol: No Chemotherapy: No Chest Pain: No Congestive Heart Failure: No COPD: No Diabetes: No Endocrine: No Genitourinary: No Hypertension: Yes Immune Disorder: No Implanted Vascular Access Dvce: No Neurologic: No Psychiatric: No Reproductive: No Respiratory: Yes (asthma) Radiation Therapy: No Sleep Apnea: No Thyroid Disease: Yes Ulcer: Yes Influenza Vaccination: No PNEUMOCCOCAL Vaccine (Year): 2 Menopausal: Yes Past Surgical History Eye Surgery: Yes (LEFT EYE) Other Surgery: Yes (SUTURES IN RIGHT LEG) Psychiatric History Psychiatric History Hx Psychiatric Treatment: DENIES History of Inpatient Treatment: No Guns or firearms in home: No Social History Hx Alcohol Use: No Hx Tobacco Use: No Hx Substance Use: No Hx of Substance Use Treatment: No Allergies-Medications (Allergen,Severity, Reaction): Coded Allergies: sulfamethoxazole (Unverified Allergy, Severe, 06/06/17) trimethoprim (Unverified Allergy, Severe, 06/06/17) tomato (Unverified Allergy, Intermediate, 06/06/17) Uncoded Allergies: wool (Adverse Reaction, Intermediate, 05/02/10) Reported Meds & Prescriptions Reported Meds & Active Scripts Active Synthroid (Levothyroxine Sodium) 100 Mcg Tab 100 Mcg PO DAILY Reported Norvasc (Amlodipine Besylate) 2.5 Mg Tab 2.5 Mg PO DAILY Review of Systems Except as stated in HPI: all other systems reviewed are Neg Exam Alert: Yes [place]: Person, Place, Date, Situation Mood: Calm Affect: Appropriate Speech: Clear, Logical Eye Contact: Normal Memory Intact: Immediate, Recent, Remote Hallucinations: Auditory Delusions: Yes Delusion Type: Paranoid Insight/Judgement Adequate MDM Medical Decision Making Medical Record Reviewed: Yes Assessment/Plan Patient interviewed at bedside, medical record reviewed and case discussed with nurse Sarah. Patient may be treated with Risperdal 1 mg by mouth daily at bedtime and prescription written. She does not require involuntary psychiatric hospitalization at this time. She remains competent to contract for safety and she is doing so. In fact, patient has good insight that her complaints of hallucinations are felt to be "crazy" according to others who know her. Orders Orders Complete Blood Count With Diff (06/06/17 18:46) Comprehensive Metabolic Panel (06/06/17 18:46) Urinalysis - C+S If Indicated (06/06/17 18:46) Psych Screen (06/06/17 18:46) Drug Screen, Random Urine (06/06/17 18:46) Alcohol (Ethanol) (06/06/17 18:46) Ct Brain W/O Iv Contrast(Rout) (06/06/17 ) Diet Regular Basic (06/07/17 Breakfast) Diet Regular Basic (06/07/17 Lunch) Results Vital Signs Date Time Temp Pulse Resp B/P (MAP) Pulse Ox O2 Delivery O2 Flow Rate FiO2 06/07/17 10:08 80 18 128/79 (95) 100 Room Air 06/07/17 05:50 63 17 124/61 (82) Room Air 06/06/17 18:25 99.0 65 17 174/98 (123) 96 Room Air Laboratory Tests Test 06/06/17 20:00 06/06/17 21:00 White Blood Count 6.9 Red Blood Count 4.25 Hemoglobin 11.6 Hematocrit 35.6 Mean Corpuscular Volume 83.9 Mean Corpuscular Hemoglobin 27.4 Mean Corpuscular Hemoglobin Concent 32.6 Red Cell Distribution Width 15.4 Platelet Count 322 Mean Platelet Volume 8.0 Neutrophils (%) (Auto) 54.4 Lymphocytes (%) (Auto) 34.3 Monocytes (%) (Auto) 6.7 Eosinophils (%) (Auto) 3.6 Basophils (%) (Auto) 1.0 Neutrophils # (Auto) 3.8 Lymphocytes # (Auto) 2.4 Monocytes # (Auto) 0.5 Eosinophils # (Auto) 0.2 Basophils # (Auto) 0.1 CBC Comment DIFF FINAL Differential Comment Blood Urea Nitrogen 16 Creatinine 1.00 Random Glucose 95 Total Protein 8.0 Albumin 4.0 Calcium Level 9.8 Alkaline Phosphatase 74 Aspartate Amino Transf (AST/SGOT) 26 Alanine Aminotransferase (ALT/SGPT) 15 Total Bilirubin 0.3 Sodium Level 139 Potassium Level 4.0 Chloride Level 104 Carbon Dioxide Level 25.6 Anion Gap 9 Estimat Glomerular Filtration Rate 57 Ethyl Alcohol Level LESS THAN 3 Urine Color COLORLESS Urine Turbidity CLEAR Urine pH 6.5 Urine Specific [place] 1.004 Urine Protein NEG Urine Glucose (UA) NEG Urine Ketones NEG Urine Occult Blood NEG Urine Nitrite NEG Urine Bilirubin NEG Urine Urobilinogen LESS THAN 2.0 Urine Leukocyte Esterase TRACE Urine WBC 2 Microscopic Urinalysis Comment CULT NOT INDICATED Urine Opiates Screen NEG Urine Barbiturates Screen NEG Urine Amphetamines Screen NEG Urine Benzodiazepines Screen NEG Urine Cocaine Screen NEG Urine Cannabinoids Screen NEG Diagnosis Primary Impression: Auditory hallucinations Additional Impression: Brief psychotic disorder Condition: Stable Problem Qualifiers Luke Davis MD Jun 07, 2017 12:44
[2017-06-07] MEDS ORDERED: RISP1TAB2 PO (12:45)
--- NOTE | 2017-06-07 12:45 | PD ---
Physical Exam Time Seen by Provider: 12:[address] Davis has evaluated the patient, lifted the Crawford act, and patient will be discharged home with her daughter. Data Data Last Documented VS Vital Signs Date Time Temp Pulse Resp B/P (MAP) Pulse Ox O2 Delivery O2 Flow Rate FiO2 06/07/17 10:08 80 18 128/79 (95) 100 Room Air 06/06/17 18:25 99.0 Orders Orders Complete Blood Count With Diff (06/06/17 18:46) Comprehensive Metabolic Panel (06/06/17 18:46) Urinalysis - C+S If Indicated (06/06/17 18:46) Psych Screen (06/06/17 18:46) Drug Screen, Random Urine (06/06/17 18:46) Alcohol (Ethanol) (06/06/17 18:46) Ct Brain W/O Iv Contrast(Rout) (06/06/17 ) Diet Regular Basic (06/07/17 Breakfast) Diet Regular Basic (06/07/17 Lunch) Labs Laboratory Tests Test 06/06/17 20:00 06/06/17 21:00 White Blood Count 6.9 TH/MM3 Red Blood Count 4.25 MIL/MM3 Hemoglobin 11.6 GM/DL Hematocrit 35.6 % Mean Corpuscular Volume 83.9 FL Mean Corpuscular Hemoglobin 27.4 PG Mean Corpuscular Hemoglobin Concent 32.6 % Red Cell Distribution Width 15.4 % Platelet Count 322 TH/MM3 Mean Platelet Volume 8.0 FL Neutrophils (%) (Auto) 54.4 % Lymphocytes (%) (Auto) 34.3 % Monocytes (%) (Auto) 6.7 % Eosinophils (%) (Auto) 3.6 % Basophils (%) (Auto) 1.0 % Neutrophils # (Auto) 3.8 TH/MM3 Lymphocytes # (Auto) 2.4 TH/MM3 Monocytes # (Auto) 0.5 TH/MM3 Eosinophils # (Auto) 0.2 TH/MM3 Basophils # (Auto) 0.1 TH/MM3 CBC Comment DIFF FINAL Differential Comment Blood Urea Nitrogen 16 MG/DL Creatinine 1.00 MG/DL Random Glucose 95 MG/DL Total Protein 8.0 GM/DL Albumin 4.0 GM/DL Calcium Level 9.8 MG/DL Alkaline Phosphatase 74 U/L Aspartate Amino Transf (AST/SGOT) 26 U/L Alanine Aminotransferase (ALT/SGPT) 15 U/L Total Bilirubin 0.3 MG/DL Sodium Level 139 MEQ/L Potassium Level 4.0 MEQ/L Chloride Level 104 MEQ/L Carbon Dioxide Level 25.6 MEQ/L Anion Gap 9 MEQ/L Estimat Glomerular Filtration Rate 57 ML/MIN Ethyl Alcohol Level LESS THAN 3 MG/DL Urine Color COLORLESS Urine Turbidity CLEAR Urine pH 6.5 Urine Specific [place] 1.004 Urine Protein NEG mg/dL Urine Glucose (UA) NEG mg/dL Urine Ketones NEG mg/dL Urine Occult Blood NEG Urine Nitrite NEG Urine Bilirubin NEG Urine Urobilinogen LESS THAN 2.0 MG/DL Urine Leukocyte Esterase TRACE Urine WBC 2 /hpf Microscopic Urinalysis Comment CULT NOT INDICATED Urine Opiates Screen NEG Urine Barbiturates Screen NEG Urine Amphetamines Screen NEG Urine Benzodiazepines Screen NEG Urine Cocaine Screen NEG Urine Cannabinoids Screen NEG MDM Supervised Visit with ABHISHEK: No Narrative Course Dr. Davis has evaluated the patient, lifted the Crawford act and the patient will be discharged home. Patient's daughter is waiting in the waiting room to take her home. Patient contracts safety. Denies suicidal or homicidal ideations. Patient will be provided community resource packet to [facility] for follow-up. Has friends and family for support. Patient is medically cleared for discharge. Diagnosis Primary Impression: Auditory hallucinations Referrals: [facility] (Out patient) Primary Care Physician Psychiatrist [facility] Patient Instructions: General Instructions, Hallucinations (ED) Additional Instruction: Contract safety to your self and others Follow-up with psychiatry Follow-up with primary care provider Follow-up with Raúl Durbin Return to the emergency department immediately with worsening of symptoms Med/Other Pt SpecificInfo: Prescription(s) given Disposition: 01 DISCHARGE HOME Condition: Stable Sia Daily Jun 07, 2017 12:45
== END 2017-06-07 14:22 | disposition home or self-care (01) ==
LOC: NEPD 18:09 → NEPJ 06-07 14:22
DX: F23 Brief psychotic disorder (principal); R44.0 Auditory hallucinations; I10 Essential (primary) hypertension; E03.9 Hypothyroidism, unspecified; J45.909 Unspecified asthma, uncomplicated; M19.90 Unspecified osteoarthritis, unspecified site
CPT/HCPCS: 70450; 80053; 80307; 81001; 85025

== ENCOUNTER 2017-10-28 22:05 | Inpatient (IN) | payer SELFPAY ==
[~2017-10-28 22:05] MED LIST changes: -LIPI10TA PO; +NORV2.5T PO; +RISP1TAB2 PO; -VENTAER INH
[2017-10-29 03:30] VITALS: BP 147/73; PULSE 78; RESP 20; TEMP 98.4; O2SAT 95
[2017-10-29] MEDS ORDERED: MAGNESIUM HYDROXIDE SUSP 30 ML CUP PO PRN ×2 (05:45→14:00)
[2017-10-29] MEDS ORDERED: ALUMINUM/MAGNESIUM/SIMETH 30 ML CUP PO PRN ×2 (05:45→14:00)
[2017-10-29 05:46] VITALS: BP 122/71; PULSE 81; RESP 17; TEMP 98.9; O2SAT 98
[2017-10-29] MEDS ORDERED: LEVOTHYROXINE SODIUM 150 MCG TAB PO SCH (06:00)
[2017-10-29] MEDS ORDERED: QUEtiapine FUMARATE 25 MG TAB PO SCH (09:00)
[2017-10-29] MEDS: NITROFURANTOIN MONOHYD MACROCR 100 MG CAP PO SCH ×2 (09:36→21:01)
[2017-10-29] MEDS: LEVOTHYROXINE SODIUM 100 MCG TAB PO SCH (10:15)
[2017-10-29] MEDS ORDERED: PILL SPLITTER OTHER PRN (10:30)
[2017-10-29] MEDS: amLODIPine BESYLATE 5 MG TAB PO SCH (11:57)
[2017-10-29] MEDS: ACETAMINOPHEN 325 MG TAB PO PRN ×2 (12:04→21:55)
--- NOTE | 2017-10-29 12:30 | PD.CONS ---
[facility] Request[facility] By Dr. Carrizales Reason for Consult Medical management Primary Care Physician Unknown Diagnoses: History of Present Illness This is a 56-year-old female admitted to psych unit for auditory hallucinations. We are being consulted for medical comanagement of hypothyroidism and hypertension. Per patient, she is doing well, no complaints are done auditory hallucinations. She is any chest pain, shortness of breath, nausea, vomiting, abdominal pain or fever. Review of Systems ROS Limitations: Other (All other pertinent systems were reviewed and are negative.) Past Family Social History Allergies: Coded Allergies: sulfamethoxazole (Unverified Allergy, Severe, 06/06/17) trimethoprim (Unverified Allergy, Severe, 06/06/17) tomato (Unverified Allergy, Intermediate, 06/06/17) Uncoded Allergies: wool (Adverse Reaction, Intermediate, 05/02/10) Past Medical History Hypertension Hypothyroidism GERD Past Surgical History Left eye surgery Right knee surgery Reported Medications Risisperidone 1 Mg Tab 1 Mg PO HS Synthroid (Levothyroxine Sodium) 100 Mcg Tab 100 Mcg PO DAILY Tums as needed Norvasc (Amlodipine Besylate) 2.5 Mg Tab 2.5 Mg PO DAILY Family History No history of diabetes or coronary artery disease Social History Occasional alcohol use, negative for smoking or illicit drug use. Physical Exam Vital Signs Vital Signs Date Time Temp Pulse Resp B/P (MAP) Pulse Ox O2 Delivery O2 Flow Rate FiO2 10/29/17 05:46 98.9 81 17 122/71 (88) 98 10/29/17 03:30 98.4 78 20 147/73 (97) 95 Physical Exam Not in distress, well-nourished, looks stated age PERRL, pink conjunctiva without injection, anicteric Normal rate and regular rhythm, no murmurs gallops or rubs appreciated. Clear to auscultation and symmetric bilaterally, normal respiratory effort. Normal bowel sounds, soft, non-tender, nondistended, no guarding. Extremities without clubbing, cyanosis, or edema. No rash of generalized distribution. Skin is warm and dry. AAO x3, no cranial nerve deficits, moves all 4 extremities, no focal neurologic deficits, crying. Assessment and Plan Assessment and Plan This is a 56-year-old female admitted to psych unit for auditory hallucinations , we are being consulted for medical comanagement of hypertension and hypothyroidism Hypertension-borderline control, restart Norvasc, check BMP and CBC Hypothyroidism-restart Synthroid, check TSH, free T4 and free T3 GERD-Tums as needed Thank you very much for this consultation, we will follow along with you.very much for this consult. We'll follow along with you. If CBC, BMP, and TSH are unremarkable, we will sign off. Kana Steve MD Oct 29, 2017 12:30
[2017-10-29] MEDS: CALCIUM CARBONATE 500 MG CHEWABLE TAB CHEW PRN (12:50)
[2017-10-29] MEDS ORDERED: hydrOXYzine HCL 50 MG TAB PO PRN (14:00)
[2017-10-29] MEDS ORDERED: ACETAMINOPHEN 325 MG TAB PO PRN (14:00)
[2017-10-29] MEDS ORDERED: diphenhydrAMINE HCL 50 MG CAP PO PRN (14:00)
--- NOTE | 2017-10-29 14:08 | HHI.HP ---
Provisional Diagnosis Admission Date Oct 29, 2017 at 02:41 [place]. Brief psychotic disorder F 23 Certification of Person's Competence To Provide Express and Informed Consent I have personally examined Barb Alexander , a person being served at [facility] on, Oct 29, 2017 13:52. Express and informed consent means consent voluntarily given in writing, by a competent person, after sufficient explanation and disclosure of the subject matter involved to enable the person to make a knowing and willful decision without any element of force, fraud, deceit, duress, or other form of constraint or coercion. This person is 18 years of age or older, is not now known to be incompetent to consent to treatment with a guardian advocate, and does not have a health care surrogate or proxy currently making medical treatment decisions. I have found this person to be one of the following: [xxx] Competent to provide express and informed consent, as defined above, for voluntary admission to this facility and is competent to provide express and informed consent for treatment. He/she has the consistent capacity to make well reasoned, willful, and knowing decisions concerning his or her medical or mental health treatment. The person fully and consistently understands the purpose of the admission for examination/placement and is fully capable of personally exercising all rights assured [place] Incompetent to provide express and informed consent to voluntary admission, and this is incompetent to provide express and informed consent to treatment. The person must be transferred to involuntary status and a petition for a guardian advocate filed with the Circuit Court. [] Refusing to provide express and informed consent to voluntary admission but is competent to provide express and informed consent for treatment. The person must be discharged or transferred to involuntary status. Form shall be completed within 24 hours of a person's arrival at the receiving facility and filed in the clinical record of each person: 1. Admitted on a voluntary basis 2. Permitted to provide express and informed consent to his/her own treatment 3. Allowed to transfer from involuntary to voluntary status 4. Prior to permitting a person to consent to his or her own treatment after having been previously found incompetent to consent to treatment. History of Present Illness Capacity: Has Capacity HPI Patient 56-year-old white female who comes here under Crawford act after initially being seen at [facility] in [facility] Crawford act was done there by Dr. Coelman now dated 10/28/17 in 1923 hrs. the document states patient has auditory hallucinations telling her to patient disorganized emotional. Patient seen screen at that facility. Toxicology negative bladder: Negative. Patient then transferred here under the Crawford act. Of interest patient seen here in May [address] Luke Davis at that time she also complained of auditory hallucinations. Though that referral she was capable returning home with her family with a prescription for 1 mg Respinol at bedtime. It appears the voices have been intermittent since that time. It appears that may have started Seroquel at [facility]. At the present time patient sitting quietly in her room nurse Meron present throughout session. Patient is alert oriented calm somewhat frightened and tearful white female appears her stated age. She is acknowledged in auditory hallucinations level lady once was from [facility] Ms. means threatening telling her to kill herself. Patient does seem has some reality testing. Though it is not affecting her behavior. Patient denies any psychiatric history prior to May 2017. She lives with her of 35 years who is her second . It appears she is in a somewhat conflictual relationship with her son. She also stresses with her daughter. Patient denies any alcohol or drug use related to this she states she has no suicidal ideation of her own. In any event at the present time patient does meet criteria for inpatient psychiatric hospitalization medication management and adjustment. I do feel she has capacity to sign voluntary thus I'll lift Crawford act allow patient sign voluntary will we will restart her on Respinol but at 1 mg twice a day we'll discontinue the Seroquel. Hopeless to be fairly short stay and return her to her family for outpatient follow-up in the community Review of Systems Constitutional: DENIES: Diaphoretic episodes, Fatigue, Fever, Weight gain, Weight loss, Chills, Dizziness, Change in appetite, Night Sweats Endocrine: DENIES: Abnorml menstrual pattern, Heat/cold intolerance, Polydipsia , Polyuria, Polyphagia Eyes: DENIES: Blurred vision, Diplopia, Eye inflammation, Eye pain, Vision loss , Photosensitivity, Double Vision Ears, nose, mouth, throat: DENIES: Tinnitus, Hearing loss, Vertigo, Nasal discharge, Oral lesions, Throat pain, Hoarseness, Ear Pain, Running Nose, Epistaxis, Sinus Pain, Toothache, Odynophagia Respiratory: DENIES: Apneas, Cough, Snoring, Wheezing, Hemoptysis, Sputum production, Shortness of breath Cardiovascular: DENIES: Chest pain, Palpitations, Syncope, Dyspnea on Exertion , PND, Lower Extremity Edema, Orthopnea, Claudication Gastrointestinal: DENIES: Abdominal pain, Black stools, Bloody stools, Constipation, Diarrhea, Nausea, Vomiting, Difficulty Swallowing, Anorexia Genitourinary: DENIES: Abnormal vaginal bleeding, Dysmenorrhea, Dyspareunia, Sexual dysfunction, Urinary frequency, Urinary incontinence, Urgency, Hematuria , Dysuria, Nocturia, Vaginal discharge Musculoskeletal: DENIES: Joint pain, Muscle aches, Stiffness, Joint Swelling, Back pain, Neck pain Integumentary: DENIES: Abnormal pigmentation, Pruritus, Rash, Nail changes, Breast masses, Breast skin changes, Nipple discharge Hematologic/lymphatic: DENIES: Bruising, Lymphadenopathy Immunologic/allergic: DENIES: Eczema, Urticaria Neurologic: DENIES: Abnormal gait, Headache, Localized weakness, Paresthesias, Seizures, Speech Problems, Tremor, Poor Balance Psychiatric: COMPLAINS OF: Anxiety, Hallucinations, Suicidal Ideation Past Psych History Psychological trauma history Vague by father Violence risk - others (6 mos) Low Violence risk - self (6 mos) Low to medium Substance Abuse History Drugs/Alcohol past 12 months Denies Past Family Social History Coded Allergies: sulfamethoxazole (Unverified Allergy, Severe, 06/06/17) trimethoprim (Unverified Allergy, Severe, 06/06/17) tomato (Unverified Allergy, Intermediate, 06/06/17) Uncoded Allergies: wool (Adverse Reaction, Intermediate, 05/02/10) Active Scripts Levothyroxine (Synthroid) 100 Mcg Tab, 100 MCG PO DAILY for Thyroid, #30 TAB 0 Refills Prov:Hamzah Campbell 10/22/16 Reported Medications Amlodipine (Norvasc) 2.5 Mg Tab, 2.5 MG PO DAILY for Blood Pressure Management, #30 TAB 0 Refills 06/06/17 Discontinued Scripts Risperidone (Risperidone) 1 Mg Tab, 1 MG PO HS, #30 TAB 0 Refills Prov:Luke Davis MD 06/07/17 Current Medications Medications (Trade) Dose Ordered Sig/Vanessa Route Start Time Stop Time Status Last Admin (Atarax) 50 mg Q6H PRN PO 10/29/17 05:45 (Benadryl) 50 mg HS PRN PO 10/29/17 05:45 (Tylenol) 650 mg Q4H PRN PO 10/29/17 05:45 10/29/17 12:04 (Milk Of Magnesia Liq) 30 ml DAILY PRN PO 10/29/17 05:45 (Mag-Al Plus Susp Liq) 30 ml Q6H PRN PO 10/29/17 05:45 (SEROquel) 50 mg BID PO 10/29/17 09:00 10/29/17 09:36 (Macrobid) 100 mg BID PO 10/29/17 09:00 11/04/17 21:01 10/29/17 09:36 (Norvasc) 2.5 mg DAILY PO 10/29/17 10:15 10/29/17 11:57 (Synthroid) 100 mcg DAILY PO 10/29/17 10:15 (Pill Splitter) 1 ea UNSCH PRN OTHER 10/29/17 10:30 (Tums Chew) 500 mg Q12HR PRN CHEW 10/29/17 12:30 10/29/17 12:50 Family Psych History Denies Social History Patient lives with second Patient's Strengths (min. 2) Patient verbal able axis health care cooperative Physical Exam Patient medically cleared [facility] at the present time patient is a quietly in her bed she is in no acute distress, she is in no respiratory distress. No complaints of abdominal pain. Patient moving all 4 extremities well laying in bed Vital Signs Vital Signs Date Time Temp Pulse Resp B/P (MAP) Pulse Ox O2 Delivery O2 Flow Rate FiO2 10/29/17 05:46 98.9 81 17 122/71 (88) 98 I/O 10/29/17 10/29/17 10/30/17 08:00 16:00 00:00 Intake Total 480 ml Balance 480 ml Mental Status Examination Appearance: Appropriate Consciousness: Alert Orientation: x4 Motor Activity: Normal gait Speech: Unremarkable, Rapid (slight increased rate) Language: Adequate Fund of Knowledge: Adequate Attention and Concentration: Adequate Memory: Unremarkable Mood: Sad (tearful) Affect: Other (increased range and intensity) Thought Process & Associations: Intact Thought Content: Hallucinations Hallucination Type: Auditory Delusion Type: Paranoid Suicidal Ideation: No (the voices at times tells her to kill herself) Suicidal Plan: No Suicidal Intention: No Homicidal Ideation: No Homicidal Plan: No Homicidal Intention: No Insight: Adequate Judgment: Adequate Assessment & Plan Problem List: (1) Brief psychotic disorder ICD Codes: F23 - Brief psychotic disorder Assessment & Plan Estimated LOS: 3-5 days with this and patient does meet criteria for acute inpatient psychiatric care they feel she has capacity thus I'll lift Crawford act. We'll start on Respinol 1 mg twice a day. Hopeless be fairly short stay return her to her family Request HC Surrog/Guard Advoc?: No Carlos Alberto Carrizales MD Oct 29, 2017 14:08
[2017-10-29] MEDS: risperiDONE 1 MG TAB PO SCH ×2 (15:50→21:02)
[2017-10-29 17:27] LABS: AUTOMATED NEUTROPHIL # 3.3 TH/MM3 (1.8-7.7); BASOPHIL # 0.1 TH/MM3 (0-0.2); BASOPHIL % 0.9 % (0.0-2.0); EOSINOPHIL # 0.1 TH/MM3 (0-0.4); EOSINOPHIL % 2.3 % (0.0-4.0); HEMATOCRIT 35.8 % (35.0-46.0); HEMOGLOBIN 12.1 GM/DL (11.6-15.3); LYMPH % 32.2 % (9.0-44.0); LYMPHOCYTE # 1.8 TH/MM3 (1.0-4.8); MEAN CELL VOLUME 85.5 FL (80.0-100.0); MEAN CORPUSCULAR HEMOGLOBIN 28.8 PG (27.0-34.0); MEAN CORPUSCULAR HGB CONC 33.7 % (32.0-36.0); MEAN PLATELET VOLUME 7.8 FL (7.0-11.0); MONO % 6.9 % (0.0-8.0); MONOCYTE # 0.4 TH/MM3 (0-0.9); NEUT % 57.7 % (16.0-70.0); PLATELET COUNT 287 TH/MM3 (150-450); RED BLOOD COUNT 4.18 MIL/MM3 (4.00-5.30); RED CELL DISTRIBUTION WIDTH 14.4 % (11.6-17.2); WHITE BLOOD COUNT 5.7 TH/MM3 (4.0-11.0)
[2017-10-29 17:45] LABS: BICARBONATE 29.5 MEQ/L (21.0-32.0); CALCIUM 9.5 MG/DL (8.5-10.1); CREATININE 0.86 MG/DL (0.50-1.00)
[2017-10-29 17:55] LABS: FREE T3 3.77 PG/ML (2.18-3.98); FREE T4 1.85 NG/DL (0.76-1.46)
[2017-10-29 19:04] VITALS: BP 127/65; PULSE 91; RESP 17; TEMP 98.2; O2SAT 98
[2017-10-30 05:53] VITALS: BP 128/72; PULSE 84; RESP 16; TEMP 97.2; O2SAT 98
[2017-10-30] MEDS: NITROFURANTOIN MONOHYD MACROCR 100 MG CAP PO SCH ×2 (08:42→22:36)
[2017-10-30] MEDS: LEVOTHYROXINE SODIUM 100 MCG TAB PO SCH (08:42)
[2017-10-30] MEDS: amLODIPine BESYLATE 5 MG TAB PO SCH (08:43)
[2017-10-30] MEDS: ACETAMINOPHEN 325 MG TAB PO PRN ×2 (08:43→22:37)
[2017-10-30] MEDS: risperiDONE 1 MG TAB PO SCH ×2 (08:43→22:36)
[2017-10-30] MEDS: CALCIUM CARBONATE 500 MG CHEWABLE TAB CHEW PRN (09:42)
--- NOTE | 2017-10-30 10:34 | HHI.PYPN ---
Subjective Chief Complaint: Psychosis Remarks Patient was seen in her room with NILESH Hernández. Patient lying on bed. She still endorses hearing a female voice in her head. She reports feeling frightened of the voice. Patient states that the voice is a woman she used to know in the past who had a "attitude". She stated that she has heard the voice intermittently since her last discharge, however she does admit that she stopped taking the risperidone approximately 1 month after being discharged. She does state that the voice was not as loud initially but has gotten louder in the last 6 months. Patient states that she knows the voices are not "not real" however they continue to scare her. She lives with her and states that she did talk to her over the weekend. Reviewed EMR, labs, and spoke with patient's nurse who advises patient is seclusive, but compliant with her medications. She is currently being treated for UTI. Patient denies any improvement at this time and in the intensity or frequency of the voice in her head. Review of Systems Genitourinary: COMPLAINS OF: Urinary frequency, Urgency (Patient states that her UTI symptoms started "a few days" before she came to the hospital.) Musculoskeletal: COMPLAINS OF: Back pain (Lower back pain ) Mental Status Examination Appearance: Appropriate Consciousness: Alert Orientation: x4 Motor Activity: Normal gait, Other (Patient lying on bed) Speech: Pressured, Rapid (slight increased rate) Language: Adequate Fund of Knowledge: Adequate Attention and Concentration: Adequate Memory: Unremarkable Mood: Anxious (Patient reports being frightened by the voice.) Affect: Other (increased range and intensity) Thought Process & Associations: Intact Thought Content: Hallucinations Hallucination Type: Auditory Delusion Type: Paranoid (Patient believes the voices are telling her to have her son changed his phone number and password to protect him.) Suicidal Ideation: No (the voices at times tells her to kill herself) Suicidal Plan: No Suicidal Intention: No Homicidal Ideation: No Homicidal Plan: No Homicidal Intention: No Insight: Adequate Judgment: Adequate Results Labs Test 10/29/17 16:51 White Blood Count 5.7 TH/MM3 Red Blood Count 4.18 MIL/MM3 Hemoglobin 12.1 GM/DL Hematocrit 35.8 % Mean Corpuscular Volume 85.5 FL Mean Corpuscular Hemoglobin 28.8 PG Mean Corpuscular Hemoglobin Concent 33.7 % Red Cell Distribution Width 14.4 % Platelet Count 287 TH/MM3 Mean Platelet Volume 7.8 FL Neutrophils (%) (Auto) 57.7 % Lymphocytes (%) (Auto) 32.2 % Monocytes (%) (Auto) 6.9 % Eosinophils (%) (Auto) 2.3 % Basophils (%) (Auto) 0.9 % Neutrophils # (Auto) 3.3 TH/MM3 Lymphocytes # (Auto) 1.8 TH/MM3 Monocytes # (Auto) 0.4 TH/MM3 Eosinophils # (Auto) 0.1 TH/MM3 Basophils # (Auto) 0.1 TH/MM3 CBC Comment DIFF FINAL Differential Comment Blood Urea Nitrogen 16 MG/DL Creatinine 0.86 MG/DL Random Glucose 96 MG/DL Calcium Level 9.5 MG/DL Sodium Level 142 MEQ/L Potassium Level 4.3 MEQ/L Chloride Level 107 MEQ/L Carbon Dioxide Level 29.5 MEQ/L Anion Gap 6 MEQ/L Estimat Glomerular Filtration Rate 68 ML/MIN Free Thyroxine 1.85 NG/DL Free Triiodothyronine (T3) pg/dL 3.77 PG/ML Thyroid Stimulating Hormone 3rd Gen 0.353 uIU/ML Vitals/IOs Vital Signs Date Time Temp Pulse Resp B/P (MAP) Pulse Ox O2 Delivery O2 Flow Rate FiO2 10/30/17 05:53 97.2 84 16 128/72 (90) 98 Intake and Output 10/30/17 10/30/17 10/31/17 08:00 16:00 00:00 Intake Total 240 ml Balance 240 ml Assessment & Plan Problem List: (1) Brief psychotic disorder ICD Codes: F23 - Brief psychotic disorder Status: Acute Assessment & Plan Estimated LOS: Days Patient still advises hearing voices. Reports that her sleep was "on and off" all night. For now we will continue treatment with no change. Justification for Cont. Inpt. Med changes. At this time, patient will decompensate if placed in a lower level of care. Discharge Planning Pending psychiatric stabilization. Request HC Surrog/Guard Advoc?: No Lisa Browning Oct 30, 2017 10:34 am
--- NOTE | 2017-10-30 10:36 | HHI.PR ---
Subjective Remarks Follow-up visit auditory hallucination, hypothyroidism, HTN. Patient seen and examined today. States she has postnasal drip and runny nose. Reports she wants her Symbicort back. States she has been taking Symbicort but unable to noted dose. Patient also states that she was started on thyroid medication dosage she is on possibly about several weeks ago, unsure of the date. Discussed with patient results of lab and that dose as she has has been lowered. While talking to the patient patient all of a sudden started screaming , "This lady does not want to stop talking to me." Patient reports that there is a lady talking to her for about 2 years now but it has worsened about 6 months ago. When asked what the lady was stopping to her about patient states that "she wanted me to go excelsior picker my son go right to train or take a bus she wants me to do something all the time." Otherwise, denies pain and discomfort. Denies SOB/ dyspnea. Denies chest pain, palpitations, headaches, dizziness. Denies fevers, chills, n/v/d. Denies dysuria. Objective Vitals Vital Signs Date Time Temp Pulse Resp B/P (MAP) Pulse Ox O2 Delivery O2 Flow Rate FiO2 10/30/17 05:53 97.2 84 16 128/72 (90) 98 10/29/17 19:04 98.2 91 17 127/65 (85) 98 I/O 10/29/17 10/29/17 10/29/17 10/30/17 10/30/17 10/30/17 07:00 15:00 23:00 07:00 15:00 23:00 Intake Total 480 ml 240 ml 240 ml Balance 480 ml 240 ml 240 ml Intake Oral 480 ml 240 ml 240 ml Result Diagram: 10/29/17 1651 10/29/17 1651 Objective Remarks GENERAL: This is a well-nourished, well-developed patient, in no apparent distress. SKIN: Warm and dry. HEENT: Normocephalic. Pupils equal round and reactive. Nose without bleeding, erythema noted, nasal secretion clear. Airway patent. NECK: Trachea midline. No JVD. Supple. CARDIOVASCULAR: Regular rate and rhythm without murmurs, gallops, or rubs. RESPIRATORY: Clear to auscultation. Breath sounds equal bilaterally. No wheezes , rales, or rhonchi. GASTROINTESTINAL: Abdomen soft, non-tender, nondistended. Bowel Sounds normoactive x4. MUSCULOSKELETAL: Extremities without clubbing, cyanosis, or edema. NEUROLOGICAL: Awake and alert. Oriented to place, person. No focal neuro deficit. Moves all extremities. Normal speech. A/P Problem List: (1) Hypothyroidism ICD Code: E03.9 - Hypothyroidism, unspecified Status: Chronic (2) HTN (hypertension) ICD Code: I10 - Essential (primary) hypertension Status: Chronic Assessment and Plan This is a 56-year-old female admitted to psych unit for auditory hallucinations , we are being consulted for medical comanagement of hypertension and hypothyroidism Auditory hallucinations - Managed by psychiatry team Hypertension-borderline control, restart Norvasc - CBC within normal, BMP within normal Hypothyroidism-restart Synthroid - TSH low at 0.353, T4 1 0.85 - Levothyroxin dose decreased to 100 g from 150 g. Repeat 4-6 weeks and outpatient. Underlying COPD? Postnasal drip - Start Claritin daily, Flonase daily - Restart Symbicort - DuoNeb's when necessary GERD-Tums as needed DVT prop ambulatory Dimitrios Mercado Oct 30, 2017 10:36 am Lisa Browning Oct 30, 2017 1:40 pm
[2017-10-30] MEDS ORDERED: RESP: ALBUTEROL 2.5 MG/IPRATROPIUM 0.5 MG NEB (PRN) NEB (11:15)
[2017-10-30] MEDS: FLUTICASONE PROPIONATE 50 MCG/ACT 16 GM NASAL SPRAY EACH NARE SCH (11:15)
[2017-10-30] MEDS: LORATADINE 10 MG TAB PO SCH (11:15)
[2017-10-30] MEDS: BUDESONIDE-FORMOTEROL 160/4.5 MCG INHALER INH SCH ×2 (12:00→22:35)
[2017-10-30] MEDS: PADIMATE (CHAPSTICK) 4.5 GM TUBE TOPICAL PRN (13:14)
[2017-10-30] MEDS: hydrOXYzine HCL 50 MG TAB PO PRN (13:50)
[2017-10-30 18:13] VITALS: BP 122/69; PULSE 82; RESP 16; TEMP 98; O2SAT 99
[2017-10-30] MEDS: REMOVE OLD NICOTINE PATCH T-DERMAL SCH (21:00)
[2017-10-31] MEDS: LEVOTHYROXINE SODIUM 100 MCG TAB PO SCH (06:42)
[2017-10-31] MEDS: FLUTICASONE PROPIONATE 50 MCG/ACT 16 GM NASAL SPRAY EACH NARE SCH (07:50)
[2017-10-31 08:00] VITALS: BP 121/55; PULSE 83; RESP 18; TEMP 98.1; O2SAT 97
[2017-10-31] MEDS: NICOTINE 21 MG/24 HR PATCH T-DERMAL SCH (09:00)
[2017-10-31] MEDS: LORATADINE 10 MG TAB PO SCH (09:04)
[2017-10-31] MEDS: ACETAMINOPHEN 325 MG TAB PO PRN ×2 (09:04→16:50)
[2017-10-31] MEDS: NITROFURANTOIN MONOHYD MACROCR 100 MG CAP PO SCH ×2 (09:04→22:12)
[2017-10-31] MEDS: PADIMATE (CHAPSTICK) 4.5 GM TUBE TOPICAL PRN (09:04)
[2017-10-31] MEDS: amLODIPine BESYLATE 5 MG TAB PO SCH (09:04)
[2017-10-31] MEDS: risperiDONE 1 MG TAB PO SCH ×2 (09:04→22:11)
[2017-10-31] MEDS: BUDESONIDE-FORMOTEROL 160/4.5 MCG INHALER INH SCH ×2 (09:05→22:10)
[2017-10-31] MEDS: CALCIUM CARBONATE 500 MG CHEWABLE TAB CHEW PRN (09:37)
--- NOTE | 2017-10-31 13:03 | HHI.PR ---
Subjective Remarks Follow-up HTN, hypothyroidism, and auditory hallucinations. Patient seen and examined resting in bed in no acute distress. Repots that the voices in her head continue, denies any fevers, chills, N/V/D cough or SOB. ChapStick helped with dry lips, but did not use Flonase as she repots that she had a bad reaction to this in the past. She complains of back pain states that the pain will travel down both legs and feels like pins and needles. Nothing makes it better or worse, denies any urinary/ fecal incontinence, denies any saddle anesthesia. She also denies any dysuria, hematuria, frequency or hesitancy. Objective Vitals Vital Signs Date Time Temp Pulse Resp B/P (MAP) Pulse Ox O2 Delivery O2 Flow Rate FiO2 10/31/17 08:00 98.1 83 18 121/55 (77) 97 10/30/17 18:13 98.0 82 16 122/69 (86) 99 I/O 10/30/17 10/30/17 10/30/17 10/31/17 10/31/17 10/31/17 07:00 15:00 23:00 07:00 15:00 23:00 Intake Total 240 ml 480 ml Balance 240 ml 480 ml Intake Oral 240 ml 480 ml Result Diagram: 10/29/17 1651 10/29/17 1651 Objective Remarks GENERAL: This is a well-nourished, well-developed patient, in no apparent distress. SKIN: Warm and dry. HEENT: Normocephalic. Pupils equal round and reactive. Nose without bleeding or drainage. Airway patent. NECK: Trachea midline. No JVD. CARDIOVASCULAR: Regular rate and rhythm without murmurs, gallops, or rubs. RESPIRATORY: Clear to auscultation. Breath sounds equal bilaterally. No wheezes , rales, or rhonchi. GASTROINTESTINAL: Abdomen soft, non-tender, nondistended. Bowel Sounds normoactive x4. MUSCULOSKELETAL: Extremities without clubbing, cyanosis, or edema. NEUROLOGICAL: Awake and alert. Oriented to place, person. No focal neuro deficit. Moves all extremities. Normal speech. A/P Problem List: (1) Hypothyroidism ICD Code: E03.9 - Hypothyroidism, unspecified Status: Chronic (2) HTN (hypertension) ICD Code: I10 - Essential (primary) hypertension Status: Chronic Assessment and Plan This is a 56-year-old female admitted to psych unit for auditory hallucinations , we are being consulted for medical comanagement of hypertension and hypothyroidism Auditory hallucinations - Managed by psychiatry team, continues to hear voices. Hypertension, controlled - Continue Norvasc - CBC within normal, BMP within normal Hypothyroidism - TSH low at 0.353, T4 1 0.85 - Levothyroxin dose decreased to 100 g from 150 g. Repeat 4-6 weeks and outpatient. Underlying COPD? Postnasal drip - Continue Claritin daily, DC Flonase, try saline nasal spray - Continue Symbicort - DuoNeb's when necessary UTI - From previous hospital visit, on Macrobid 100mg BID, end date 11/04 - Denies dysuria, no leukocytosis, afebrile. Back pain/neuropathy - Likely sciatica, will try short course of Prednisone - Monitor response, possibly add gabapentin GERD-Tums as needed DVT prop ambulatory Discussed with nurse. Checo Sanchez Oct 31, 2017 13:03
--- NOTE | 2017-10-31 14:09 | HHI.PYPN ---
Subjective Chief Complaint: Psychosis Remarks Patient seen in [place] with nurse sravan and medical student Jones, patient somewhat anxious and intrusive with me. Acknowledges continued auditory hallucinations with very little change in the intensity duration or frequency. Patient is available on the Respinol for 2-1/2 days Will continue dosage no change at this time. Patient does denies suicidality Review of Systems Except as stated in HPI: all other systems reviewed are Neg Mental Status Examination Appearance: Appropriate Consciousness: Alert Orientation: x4 Motor Activity: Normal gait, Other (Patient lying on bed) Speech: Pressured, Rapid (slight increased rate) Language: Adequate Fund of Knowledge: Adequate Attention and Concentration: Adequate Memory: Unremarkable Mood: Anxious (Patient reports being frightened by the voice.) Affect: Other (increased range and intensity) Thought Process & Associations: Intact Thought Content: Hallucinations Hallucination Type: Auditory Delusion Type: Paranoid (Patient believes the voices are telling her to have her son changed his phone number and password to protect him.) Suicidal Ideation: No (the voices at times tells her to kill herself) Suicidal Plan: No Suicidal Intention: No Homicidal Ideation: No Homicidal Plan: No Homicidal Intention: No Insight: Adequate Judgment: Adequate Results Vitals/IOs Vital Signs Date Time Temp Pulse Resp B/P (MAP) Pulse Ox O2 Delivery O2 Flow Rate FiO2 10/31/17 08:00 98.1 83 18 121/55 (77) 97 Intake and Output 10/31/17 10/31/17 11/01/17 08:00 16:00 00:00 Intake Total 240 ml 240 ml Balance 240 ml 240 ml Assessment & Plan Problem List: (1) Brief psychotic disorder ICD Codes: F23 - Brief psychotic disorder Status: Acute Assessment & Plan Estimated LOS: days patient continue psychotic. Compliant medications. Denies suicidality. For now continue treatment Justification for Cont. Inpt. At this time patient with decompensated placed in a lower level of care Discharge Planning Probable return home with family Request HC Surrog/Guard Advoc?: No Carlos Alberto Carrizales MD Oct 31, 2017 14:09
[2017-10-31] MEDS: SODIUM CHLORIDE 0.65% NASAL SPRAY 45 ML BTL EACH NARE SCH ×2 (16:00→22:11)
[2017-10-31 18:10] VITALS: BP 116/68; PULSE 94; RESP 16; TEMP 98.2; O2SAT 99
[2017-10-31] MEDS: REMOVE OLD NICOTINE PATCH T-DERMAL SCH (21:00)
[2017-10-31] MEDS: hydrOXYzine HCL 50 MG TAB PO PRN (22:12)
[2017-11-01] MEDS: SODIUM CHLORIDE 0.65% NASAL SPRAY 45 ML BTL EACH NARE SCH ×7 (04:00→23:13)
[2017-11-01 06:32] VITALS: BP 120/70; PULSE 74; RESP 16; TEMP 97.8; O2SAT 95
[2017-11-01] MEDS: LEVOTHYROXINE SODIUM 100 MCG TAB PO SCH (06:38)
[2017-11-01] MEDS: NICOTINE 21 MG/24 HR PATCH T-DERMAL SCH (09:00)
[2017-11-01] MEDS: FLUTICASONE PROPIONATE 50 MCG/ACT 16 GM NASAL SPRAY EACH NARE SCH ×2 (09:00→09:17)
[2017-11-01] MEDS: risperiDONE 1 MG TAB PO SCH ×2 (09:16→20:50)
[2017-11-01] MEDS: NITROFURANTOIN MONOHYD MACROCR 100 MG CAP PO SCH ×2 (09:17→20:50)
[2017-11-01] MEDS: predniSONE 20 MG TAB PO SCH (09:17)
[2017-11-01] MEDS: LORATADINE 10 MG TAB PO SCH (09:17)
[2017-11-01] MEDS: BUDESONIDE-FORMOTEROL 160/4.5 MCG INHALER INH SCH ×2 (09:17→20:51)
[2017-11-01] MEDS: amLODIPine BESYLATE 5 MG TAB PO SCH (09:20)
[2017-11-01] MEDS: CALCIUM CARBONATE 500 MG CHEWABLE TAB CHEW PRN (09:36)
[2017-11-01] MEDS: ACETAMINOPHEN 325 MG TAB PO PRN (09:36)
--- NOTE | 2017-11-01 10:54 | PD.TTN ---
Patient Problems 1. Discharge planning 2. Medication compliance 3. Knowledge deficit 4. Lack of coping skills Progress Toward Goals Provider Present: Dr. Haroldo Carrizales Provider Input: 11/01/17 - Dr. carrizales reports the patient has informed him that the voices are getting better and sleep is improving. Psychiatric Counselors Present: DEEPIKA Humphreys Psych Therapist Input: 11/01/17 - Patient remains cooperative with treatment and without behavioral disturbance. Group Spec/RT/OT/LOPES Present: MARIANNE Mcgraw Group Spec/RT/OT/LOPES Input: 11/01/17 - Patient attends select groups. Discharge Plan SMA 11/01/17 - Patient will return to her home when discharged. Documentation Scribe: DEEPIKA Humphreys Date Resolved: Nov 01, 2017 Teaching Recipient: Patient, Family Gabbie Singh Nov 01, 2017 10:54
--- NOTE | 2017-11-01 11:50 | HHI.PR ---
Subjective Remarks Follow-up HTN, hypothyroidism, and back/leg pain. Patient seen and examined sitting up in day room eating lunch today. She denies any dysuria, hematuria, frequency, fevers or chills. Reports that leg pain with pins and needles feeling continues. Some relief with Tylenol, denies any difficulty walking, saddle anesthesia, incontinence of stool or urine. Objective Vitals Vital Signs Date Time Temp Pulse Resp B/P (MAP) Pulse Ox O2 Delivery O2 Flow Rate FiO2 11/01/17 06:32 97.8 74 16 120/70 (87) 95 10/31/17 18:10 98.2 94 16 116/68 (84) 99 I/O 10/31/17 10/31/17 10/31/17 11/01/17 11/01/17 11/01/17 07:00 15:00 23:00 07:00 15:00 23:00 Intake Total 480 ml 240 ml Balance 480 ml 240 ml Intake Oral 480 ml 240 ml Result Diagram: 10/29/17 1651 10/29/17 1651 Objective Remarks GENERAL: This is a well-nourished, well-developed patient, in no apparent distress. SKIN: Warm and dry. HEENT: Normocephalic. Pupils equal round and reactive. Nose without bleeding or drainage. Airway patent. NECK: Trachea midline. No JVD. CARDIOVASCULAR: Regular rate and rhythm without murmurs, gallops, or rubs. RESPIRATORY: Clear to auscultation. Breath sounds equal bilaterally. No wheezes , rales, or rhonchi. GASTROINTESTINAL: Abdomen soft, non-tender, nondistended. Bowel Sounds normoactive x4. MUSCULOSKELETAL: Extremities without clubbing, cyanosis, or edema. NEUROLOGICAL: Awake and alert. Oriented to place, person. No focal neuro deficit. Moves all extremities. Normal speech. A/P Problem List: (1) Hypothyroidism ICD Code: E03.9 - Hypothyroidism, unspecified Status: Chronic (2) HTN (hypertension) ICD Code: I10 - Essential (primary) hypertension Status: Chronic Assessment and Plan This is a 56-year-old female admitted to psych unit for auditory hallucinations , we are being consulted for medical comanagement of hypertension and hypothyroidism Auditory hallucinations - Managed by psychiatry team. Hypertension, controlled - Continue Norvasc - CBC within normal, BMP within normal Hypothyroidism - TSH low at 0.353, T4 1 0.85 - Levothyroxin dose decreased to 100 g from 150 g. Repeat 4-6 weeks and outpatient. Underlying COPD? Postnasal drip - Continue Claritin daily, and saline nasal spray - Continue Symbicort - DuoNeb's when necessary UTI - From previous hospital visit, on Macrobid 100mg BID, end date 11/04 - Denies dysuria, no leukocytosis, afebrile. Back pain/neuropathy - Likely sciatica, will try short course of Prednisone -Add gabapentin 100 mg 3 times daily GERD-Tums as needed DVT prop ambulatory Discussed with nurse. Checo Sanchez Nov 01, 2017 11:50
[2017-11-01] MEDS: GABAPENTIN 100 MG CAP PO SCH ×2 (12:46→17:05)
[2017-11-01] MEDS: PADIMATE (CHAPSTICK) 4.5 GM TUBE TOPICAL PRN (15:06)
--- NOTE | 2017-11-01 16:19 | HHI.PYPN ---
Subjective Chief Complaint: Psychosis Remarks Patient seen in [facility] with nurse Tatyana. Chart review. Patient discussed with nurse. Patient continues calm pleasant with me though today stating the voices are worse like hearing a electric razor in her head there are people drumming in her head. She does denies suicidality at this time. We will increase Respinol 2 mg twice a day Review of Systems Except as stated in HPI: all other systems reviewed are Neg Mental Status Examination Appearance: Appropriate Consciousness: Alert Orientation: x4 Motor Activity: Normal gait, Other (Patient lying on bed) Speech: Pressured, Rapid (slight increased rate) Language: Adequate Fund of Knowledge: Adequate Attention and Concentration: Adequate Memory: Unremarkable Mood: Anxious (Patient reports being frightened by the voice.) Affect: Other (increased range and intensity) Thought Process & Associations: Intact Thought Content: Hallucinations Hallucination Type: Auditory Delusion Type: Paranoid (Patient believes the voices are telling her to have her son changed his phone number and password to protect him.) Suicidal Ideation: No (the voices at times tells her to kill herself) Suicidal Plan: No Suicidal Intention: No Homicidal Ideation: No Homicidal Plan: No Homicidal Intention: No Insight: Adequate Judgment: Adequate Results Vitals/IOs Vital Signs Date Time Temp Pulse Resp B/P (MAP) Pulse Ox O2 Delivery O2 Flow Rate FiO2 11/01/17 06:32 97.8 74 16 120/70 (87) 95 Assessment & Plan Problem List: (1) Brief psychotic disorder ICD Codes: F23 - Brief psychotic disorder Status: Acute Assessment & Plan Estimated LOS: days patient continues psychotic and somewhat paranoid though cooperative, see medication adjustment above Justification for Cont. Inpt. At this time patient will decompensate a placed a lower level of care Discharge Planning To be determined Request HC Surrog/Guard Advoc?: No Carlos Alberto Carrizales MD Nov 01, 2017 16:19
[2017-11-01 18:00] VITALS: BP 119/74; PULSE 86; RESP 16; TEMP 97.8; O2SAT 98
[2017-11-01] MEDS: REMOVE OLD NICOTINE PATCH T-DERMAL SCH (20:51)
[2017-11-01] MEDS: diphenhydrAMINE HCL 50 MG CAP - HS PRN PO (23:13)
[2017-11-02] MEDS: SODIUM CHLORIDE 0.65% NASAL SPRAY 45 ML BTL EACH NARE SCH ×6 (04:00→23:53)
[2017-11-02] MEDS: LEVOTHYROXINE SODIUM 100 MCG TAB PO SCH (04:53)
[2017-11-02 06:08] VITALS: BP 114/68; PULSE 74; RESP 16; TEMP 98.2; O2SAT 96
[2017-11-02] MEDS: NICOTINE 21 MG/24 HR PATCH T-DERMAL SCH (09:00)
[2017-11-02] MEDS: NITROFURANTOIN MONOHYD MACROCR 100 MG CAP PO SCH ×2 (09:07→20:36)
[2017-11-02] MEDS: GABAPENTIN 100 MG CAP PO SCH ×3 (09:08→17:12)
[2017-11-02] MEDS: risperiDONE 1 MG TAB PO SCH ×2 (09:08→20:36)
[2017-11-02] MEDS: amLODIPine BESYLATE 5 MG TAB PO SCH (09:08)
[2017-11-02] MEDS: predniSONE 20 MG TAB PO SCH (09:08)
[2017-11-02] MEDS: LORATADINE 10 MG TAB PO SCH (09:08)
[2017-11-02] MEDS: BUDESONIDE-FORMOTEROL 160/4.5 MCG INHALER INH SCH ×2 (09:09→20:36)
[2017-11-02] MEDS: CALCIUM CARBONATE 500 MG CHEWABLE TAB CHEW PRN (09:27)
--- NOTE | 2017-11-02 12:05 | HHI.PR ---
Subjective Remarks Follow-up HTN, hypothyroidism, and back/leg pain. Patient reports that back pain and leg pain much improved with change in medication, this morning she states she woke up and there was no pain. Pins and needle feeling is also improved. She denies any fevers, chills, N/V/D cough or SOB. She voices no acute concerns at this moment. Objective Vitals Vital Signs Date Time Temp Pulse Resp B/P (MAP) Pulse Ox O2 Delivery O2 Flow Rate FiO2 11/02/17 06:08 98.2 74 16 114/68 (83) 96 11/01/17 18:00 97.8 86 16 119/74 (89) 98 Result Diagram: 10/29/17 1651 10/29/17 1651 Objective Remarks GENERAL: This is a well-nourished, well-developed patient, in no apparent distress. SKIN: Warm and dry. HEENT: Normocephalic. Pupils equal round and reactive. Nose without bleeding or drainage. Airway patent. NECK: Trachea midline. No JVD. CARDIOVASCULAR: Regular rate and rhythm without murmurs, gallops, or rubs. RESPIRATORY: Clear to auscultation. Breath sounds equal bilaterally. No wheezes , rales, or rhonchi. GASTROINTESTINAL: Abdomen soft, non-tender, nondistended. Bowel Sounds normoactive x4. MUSCULOSKELETAL: Extremities without clubbing, cyanosis, or edema. NEUROLOGICAL: Awake and alert. Oriented to place, person. No focal neuro deficit. Moves all extremities. Normal speech. A/P Problem List: (1) Hypothyroidism ICD Code: E03.9 - Hypothyroidism, unspecified Status: Chronic (2) HTN (hypertension) ICD Code: I10 - Essential (primary) hypertension Status: Chronic Assessment and Plan This is a 56-year-old female admitted to psych unit for auditory hallucinations , we are being consulted for medical comanagement of hypertension and hypothyroidism Auditory hallucinations - Managed by psychiatry team. Hypertension, controlled - Continue Norvasc - CBC within normal, BMP within normal Hypothyroidism - TSH low at 0.353, T4 1 0.85 - Levothyroxin dose decreased to 100 g from 150 g. Repeat 4-6 weeks and outpatient. Underlying COPD? Postnasal drip - Continue Claritin daily, and saline nasal spray - Continue Symbicort - DuoNeb's when necessary UTI - From previous hospital visit, on Macrobid 100mg BID, end date 11/04 - Denies dysuria, no leukocytosis, afebrile. Back pain/neuropathy - Likely sciatica, will try short course of Prednisone - Continue gabapentin 100 mg 3 times daily - neuropathy and pain much improved. GERD-Tums as needed DVT prop ambulatory Will sign off, please reconsult if needed. Checo Sanchez Nov 02, 2017 12:05
--- NOTE | 2017-11-02 13:28 | HHI.PYPN ---
Subjective Chief Complaint: Psychosis Remarks Patient seen in her room patient in bed patient seen with floor staff, patient discussed with nurse. Patient states voices persist not much difference from yesterday. Patient had medications adjusted yesterday we'll continue to observe at this time Review of Systems Except as stated in HPI: all other systems reviewed are Neg Mental Status Examination Appearance: Appropriate Consciousness: Alert Orientation: x4 Motor Activity: Normal gait, Other (Patient lying on bed) Speech: Pressured, Rapid (slight increased rate) Language: Adequate Fund of Knowledge: Adequate Attention and Concentration: Adequate Memory: Unremarkable Mood: Anxious (Patient reports being frightened by the voice.) Affect: Other (increased range and intensity) Thought Process & Associations: Intact Thought Content: Hallucinations Hallucination Type: Auditory Delusion Type: Paranoid (Patient believes the voices are telling her to have her son changed his phone number and password to protect him.) Suicidal Ideation: No (the voices at times tells her to kill herself) Suicidal Plan: No Suicidal Intention: No Homicidal Ideation: No Homicidal Plan: No Homicidal Intention: No Insight: Adequate Judgment: Adequate Results Vitals/IOs Vital Signs Date Time Temp Pulse Resp B/P (MAP) Pulse Ox O2 Delivery O2 Flow Rate FiO2 11/02/17 06:08 98.2 74 16 114/68 (83) 96 Assessment & Plan Problem List: (1) Brief psychotic disorder ICD Codes: F23 - Brief psychotic disorder Status: Acute Assessment & Plan Estimated LOS: days patient continue psychotic vigilant and withdrawn. Compliant medications. Voices continue to persist. For now continue treatment Justification for Cont. Inpt. At this time patient would decompensated placed a lower level of care Discharge Planning Possible return home with family Request HC Surrog/Guard Advoc?: No Carlos Alberto Carrizales MD Nov 02, 2017 13:28
[2017-11-02 18:36] VITALS: BP 110/74; PULSE 94; RESP 16; TEMP 97.5; O2SAT 97
[2017-11-02] MEDS: diphenhydrAMINE HCL 50 MG CAP - HS PRN PO (20:36)
[2017-11-02] MEDS: REMOVE OLD NICOTINE PATCH T-DERMAL SCH (21:00)
[2017-11-03] MEDS: SODIUM CHLORIDE 0.65% NASAL SPRAY 45 ML BTL EACH NARE SCH ×5 (03:46→20:00)
[2017-11-03 05:30] VITALS: BP 103/70; PULSE 83; RESP 16; TEMP 98.1; O2SAT 96
[2017-11-03] MEDS: LEVOTHYROXINE SODIUM 100 MCG TAB PO SCH (06:00)
[2017-11-03] MEDS: NICOTINE 21 MG/24 HR PATCH T-DERMAL SCH (09:00)
[2017-11-03] MEDS: BUDESONIDE-FORMOTEROL 160/4.5 MCG INHALER INH SCH ×2 (09:14→20:45)
[2017-11-03] MEDS: risperiDONE 1 MG TAB PO SCH ×2 (09:15→20:46)
[2017-11-03] MEDS: LORATADINE 10 MG TAB PO SCH (09:15)
[2017-11-03] MEDS: NITROFURANTOIN MONOHYD MACROCR 100 MG CAP PO SCH ×2 (09:15→20:46)
[2017-11-03] MEDS: GABAPENTIN 100 MG CAP PO SCH ×3 (09:15→17:13)
[2017-11-03] MEDS: predniSONE 20 MG TAB PO SCH (09:15)
[2017-11-03] MEDS: PADIMATE (CHAPSTICK) 4.5 GM TUBE TOPICAL PRN ×2 (09:16→17:13)
[2017-11-03] MEDS: amLODIPine BESYLATE 5 MG TAB PO SCH (09:16)
[2017-11-03] MEDS: ACETAMINOPHEN 325 MG TAB PO PRN (13:16)
--- NOTE | 2017-11-03 15:18 | HHI.PYPN ---
Subjective Chief Complaint: Psychosis Remarks Patient seen in [facility] with nurse Faina medical student Jones, chart reviewed, patient discussed with nurse. Patient enters with improved affect improved eye contact. Says she slept well last night when she fell asleep though the dry mouth continues. She still voices hearing buzzing sound in her head more towards the left than the right. Patient compliant with medications versus the medication adjustment yesterday will continue medications no change at this time. Patient denies suicidality or homicidality Review of Systems Except as stated in HPI: all other systems reviewed are Neg Mental Status Examination Appearance: Appropriate Consciousness: Alert Orientation: x4 Motor Activity: Normal gait, Other (Patient lying on bed) Speech: Pressured, Rapid (slight increased rate) Language: Adequate Fund of Knowledge: Adequate Attention and Concentration: Adequate Memory: Unremarkable Mood: Anxious (Patient reports being frightened by the voice.) Affect: Other (increased range and intensity) Thought Process & Associations: Intact Thought Content: Hallucinations Hallucination Type: Auditory Delusion Type: Paranoid (Patient believes the voices are telling her to have her son changed his phone number and password to protect him.) Suicidal Ideation: No (the voices at times tells her to kill herself) Suicidal Plan: No Suicidal Intention: No Homicidal Ideation: No Homicidal Plan: No Homicidal Intention: No Insight: Adequate Judgment: Adequate Results Vitals/IOs Vital Signs Date Time Temp Pulse Resp B/P (MAP) Pulse Ox O2 Delivery O2 Flow Rate FiO2 11/03/17 05:30 98.1 83 16 103/70 (81) 96 Assessment & Plan Problem List: (1) Brief psychotic disorder ICD Codes: F23 - Brief psychotic disorder Status: Acute Assessment & Plan Estimated LOS: days patient remained psychotic though slowly improving. For now continue medication no change Justification for Cont. Inpt. At this time patient decompensate and placed a lower level of care Discharge Planning Return home with family Request HC Surrog/Guard Advoc?: No Carlos Alberto Carrizales MD Nov 03, 2017 15:18
[2017-11-03] MEDS: diphenhydrAMINE HCL 50 MG CAP - HS PRN PO (20:46)
[2017-11-03] MEDS: REMOVE OLD NICOTINE PATCH T-DERMAL SCH (21:00)
[2017-11-04] MEDS: SODIUM CHLORIDE 0.65% NASAL SPRAY 45 ML BTL EACH NARE SCH ×6 (03:46→20:11)
[2017-11-04 05:34] VITALS: BP 124/69; PULSE 76; RESP 16; TEMP 97.6; O2SAT 97
[2017-11-04] MEDS: LEVOTHYROXINE SODIUM 100 MCG TAB PO SCH (06:00)
[2017-11-04] MEDS: NICOTINE 21 MG/24 HR PATCH T-DERMAL SCH (07:30)
[2017-11-04] MEDS: PADIMATE (CHAPSTICK) 4.5 GM TUBE TOPICAL PRN (08:31)
[2017-11-04] MEDS: risperiDONE 1 MG TAB PO SCH ×2 (08:31→21:10)
[2017-11-04] MEDS: ACETAMINOPHEN 325 MG TAB PO PRN (08:32)
[2017-11-04] MEDS: BUDESONIDE-FORMOTEROL 160/4.5 MCG INHALER INH SCH ×2 (08:32→21:10)
[2017-11-04] MEDS: predniSONE 20 MG TAB PO SCH (08:32)
[2017-11-04] MEDS: GABAPENTIN 100 MG CAP PO SCH ×3 (08:32→17:03)
[2017-11-04] MEDS: amLODIPine BESYLATE 5 MG TAB PO SCH (08:32)
[2017-11-04] MEDS: NITROFURANTOIN MONOHYD MACROCR 100 MG CAP PO SCH ×2 (08:32→21:10)
[2017-11-04] MEDS: LORATADINE 10 MG TAB PO SCH (08:32)
--- NOTE | 2017-11-04 13:13 | HHI.PYPN ---
Subjective Chief Complaint: Psychosis Remarks Pt seen and discussed with staff. She has been more social and compliant with medications. She reports AH are fading and she is no longer experiencing VH. She reports AH are "electrical sounds" (kat, car starting) but more in background. Sleep has been better. NO SI/HI Mental Status Examination Appearance: Appropriate Consciousness: Alert Orientation: x4 Motor Activity: Normal gait, Other (Patient lying on bed) Speech: Unremarkable Language: Adequate Fund of Knowledge: Adequate Attention and Concentration: Adequate Memory: Unremarkable Mood: Anxious (Patient reports being frightened by the voice.) Affect: Other (increased range and intensity) Thought Process & Associations: Intact Thought Content: Hallucinations Hallucination Type: Auditory Delusion Type: Paranoid (Patient believes the voices are telling her to have her son changed his phone number and password to protect him.) Suicidal Ideation: No (denies today) Suicidal Plan: No Suicidal Intention: No Homicidal Ideation: No Homicidal Plan: No Homicidal Intention: No Insight: Adequate Judgment: Adequate Results Vitals/IOs Vital Signs Date Time Temp Pulse Resp B/P (MAP) Pulse Ox O2 Delivery O2 Flow Rate FiO2 11/04/17 05:34 97.6 76 16 124/69 (87) 97 Assessment & Plan Problem List: (1) Brief psychotic disorder ICD Codes: F23 - Brief psychotic disorder Status: Acute Assessment & Plan Continue current tx plan Estimated LOS: days Justification for Cont. Inpt. risk of decompensation, impairments in reality testing Request HC Surrog/Guard Advoc?: Yumi Lopes MD Nov 04, 2017 13:13
[2017-11-04] MEDS: CALCIUM CARBONATE 500 MG CHEWABLE TAB CHEW PRN ×2 (16:03→20:10)
[2017-11-04 18:18] VITALS: BP 123/75; PULSE 85; RESP 17; TEMP 97.7; O2SAT 100
[2017-11-04] MEDS: REMOVE OLD NICOTINE PATCH T-DERMAL SCH (21:00)
[2017-11-04] MEDS: diphenhydrAMINE HCL 50 MG CAP - HS PRN PO (21:56)
[2017-11-05] MEDS: SODIUM CHLORIDE 0.65% NASAL SPRAY 45 ML BTL EACH NARE SCH ×6 (04:00→20:00)
[2017-11-05 05:31] VITALS: BP 115/58; PULSE 75; RESP 17; TEMP 98.2; O2SAT 98
[2017-11-05] MEDS: LEVOTHYROXINE SODIUM 100 MCG TAB PO SCH (05:51)
[2017-11-05] MEDS: NICOTINE 21 MG/24 HR PATCH T-DERMAL SCH (09:00)
[2017-11-05] MEDS: amLODIPine BESYLATE 5 MG TAB PO SCH (09:42)
[2017-11-05] MEDS: GABAPENTIN 100 MG CAP PO SCH ×3 (09:42→17:59)
[2017-11-05] MEDS: risperiDONE 1 MG TAB PO SCH ×2 (09:42→21:00)
[2017-11-05] MEDS: BUDESONIDE-FORMOTEROL 160/4.5 MCG INHALER INH SCH ×2 (09:43→21:00)
[2017-11-05] MEDS: LORATADINE 10 MG TAB PO SCH (09:43)
[2017-11-05] MEDS: predniSONE 20 MG TAB PO SCH (09:43)
[2017-11-05] MEDS: CALCIUM CARBONATE 500 MG CHEWABLE TAB CHEW PRN (10:25)
--- NOTE | 2017-11-05 17:06 | HHI.PYPN ---
Subjective Chief Complaint: Psychosis Remarks Pt seen and discussed with staff. She has been compliant with medications and denies side effects. No behavioral problems. She reports that anxiety persists and she continues to experience AH. Mental Status Examination Appearance: Appropriate Consciousness: Alert Orientation: x4 Motor Activity: Normal gait, Other (Patient lying on bed) Speech: Unremarkable Language: Adequate Fund of Knowledge: Adequate Attention and Concentration: Adequate Memory: Unremarkable Mood: Anxious (Patient reports being frightened by the voice.) Affect: Other (increased range and intensity) Thought Process & Associations: Intact Thought Content: Hallucinations Hallucination Type: Auditory Delusion Type: Paranoid (decreased) Suicidal Ideation: No (denies today) Suicidal Plan: No Suicidal Intention: No Homicidal Ideation: No Homicidal Plan: No Homicidal Intention: No Insight: Adequate Judgment: Adequate Results Vitals/IOs Vital Signs Date Time Temp Pulse Resp B/P (MAP) Pulse Ox O2 Delivery O2 Flow Rate FiO2 11/05/17 05:31 98.2 75 17 115/58 (77) 98 Assessment & Plan Problem List: (1) Brief psychotic disorder ICD Codes: F23 - Brief psychotic disorder Status: Acute Assessment & Plan Continue current tx plan. Estimated LOS: days Justification for Cont. Inpt. impairments in reality testing Request HC Surrog/Guard Advoc?: Yumi Lopes MD Nov 05, 2017 17:06
[2017-11-05 17:11] VITALS: BP 120/75; PULSE 85; RESP 17; TEMP 97.4; O2SAT 99
[2017-11-05] MEDS: PADIMATE (CHAPSTICK) 4.5 GM TUBE TOPICAL PRN (18:01)
[2017-11-05] MEDS: REMOVE OLD NICOTINE PATCH T-DERMAL SCH (21:00)
[2017-11-06] MEDS: SODIUM CHLORIDE 0.65% NASAL SPRAY 45 ML BTL EACH NARE SCH ×5 (04:00→15:14)
[2017-11-06 06:00] VITALS: BP 114/55; PULSE 73; RESP 17; TEMP 97.7; O2SAT 96
[2017-11-06] MEDS: LEVOTHYROXINE SODIUM 100 MCG TAB PO SCH (06:00)
[2017-11-06] MEDS: NICOTINE 21 MG/24 HR PATCH T-DERMAL SCH (07:37)
[2017-11-06] MEDS: amLODIPine BESYLATE 5 MG TAB PO SCH (08:14)
[2017-11-06] MEDS: risperiDONE 1 MG TAB PO SCH ×2 (08:15→17:38)
[2017-11-06] MEDS: BUDESONIDE-FORMOTEROL 160/4.5 MCG INHALER INH SCH (08:15)
[2017-11-06] MEDS: GABAPENTIN 100 MG CAP PO SCH ×3 (08:15→17:38)
[2017-11-06] MEDS: LORATADINE 10 MG TAB PO SCH (08:15)
[2017-11-06] MEDS: CALCIUM CARBONATE 500 MG CHEWABLE TAB CHEW PRN (08:15)
[2017-11-06] MEDS: ACETAMINOPHEN 325 MG TAB PO PRN ×2 (08:16→17:39)
[2017-11-06] MEDS: PADIMATE (CHAPSTICK) 4.5 GM TUBE TOPICAL PRN (08:16)
[2017-11-06] MEDS ORDERED: RISP2TAB37 PO (15:21)
[2017-11-06] MEDS ORDERED: LEVO.1 PO (15:21)
[2017-11-06] MEDS ORDERED: GABA100C4 PO (15:21)
[2017-11-06] MEDS ORDERED: CLAR10TA7 PO (15:21)
[2017-11-06] MEDS ORDERED: NORV2.5T PO (15:21)
[2017-11-06] MEDS ORDERED: Budeson-Formot 160-4.5 Mcg Inh INH (15:21)
--- NOTE | 2017-11-06 15:26 | HHI.DS ---
Psychiatry Discharge Summary Inpatient Psychiatric care?: Yes Advance Directive: No Reason Not Provided: declined Mental Health AdvanceDirective: No Health Care Proxy: No Admission Admission Date Oct 29, 2017 at 02:41 Admission Diagnosis: (1) Brief psychotic disorder ICD Code: F23 - Brief psychotic disorder Brief History Patient 56-year-old white female who comes here under Crawford act after initially being seen at [facility] in [facility] Crawford act was done there by Dr. Coleman now dated 10/28/17 in 1923 hrs. the document states patient has auditory hallucinations telling her to patient disorganized emotional. Patient seen screen at that facility. Toxicology negative bladder: Negative. Patient then transferred here under the Crawford act. Of interest patient seen here in May [address] Luke Davis at that time she also complained of auditory hallucinations. Though that referral she was capable returning home with her family with a prescription for 1 mg Respinol at bedtime. It appears the voices have been intermittent since that time. It appears that may have started Seroquel at [facility]. At the present time patient sitting quietly in her room nurse Meron present throughout session. Patient is alert oriented calm somewhat frightened and tearful white female appears her stated age. She is acknowledged in auditory hallucinations level lady once was from [facility] Ms. means threatening telling her to kill herself. Patient does seem has some reality testing. Though it is not affecting her behavior. Patient denies any psychiatric history prior to May 2017. She lives with her of 35 years who is her second . It appears she is in a somewhat conflictual relationship with her son. She also stresses with her daughter. Patient denies any alcohol or drug use related to this she states she has no suicidal ideation of her own. In any event at the present time patient does meet criteria for inpatient psychiatric hospitalization medication management and adjustment. I do feel she has capacity to sign voluntary thus I'll lift Crawford act allow patient sign voluntary will we will restart her on Respinol but at 1 mg twice a day we'll discontinue the Seroquel. Hopeless to be fairly short stay and return her to her family for outpatient follow-up in the community Tobacco Use In Past 30 Days: 5 or More Cigarettes/Day Alcohol Use: Never Hospital Course Patient's hospital course is uneventful, she show compliance medication from day 1. Degenerative hallucinations are somewhat complex at times though they did respond with the medication. Patient denies suicidality homicidality or any type of vision. There are no delusions. Patient seen today stating the voices are better today than over the weekend that she is feeling better and she wants to go home. She realizes there is some persistence of these auditory hallucinations but she is confident that things will get better or she'll return to the [facility] ED for further assessment. At this time patient will be meets criteria for inpatient psychiatric care patient discharged today to her self Rx times a month to follow-up [facility] outpatient medication management Results Blood Pressure 114 / 55 Vital Signs Date Time Temp Pulse Resp B/P (MAP) Pulse Ox O2 Delivery O2 Flow Rate FiO2 11/06/17 06:00 97.7 73 17 114/55 (74) 96 Please see EMR for full lab results Summary of Procedures None done Pending results at discharge: No Medications # of Antipsychotic meds at D/C: 1 Approp Antipsych med options 1 - Minimum of three failed multiple trials of monotherapy. 2 - Documented plan to taper to monotherapy due to previous use of multiple meds OR cross-taper in progress at D/C. 3 - Documentation of augmentation of Clozapine. 4 - Justification other than those listed in allowable values 1-3, document here : Discharge Discharge Date: Nov 06, 2017 Discharge Diagnosis: (1) Brief psychotic disorder Diagnosis: Principal ICD Code: F23 - Brief psychotic disorder Status: Acute Pt Condition on Discharge: Stable Discharge Disposition: Discharge Home Discharge Instructions Diet Instructions: As Tolerated, No Restrictions Activities you can perform: Regular-No Restrictions Scheduled Appointment: [facility] Discharge Time > 30 minutes Mental Status Examination Appearance: Appropriate Consciousness: Alert Orientation: x4 Motor Activity: Normal gait, Other (Patient lying on bed) Speech: Unremarkable Language: Adequate Fund of Knowledge: Adequate Attention and Concentration: Adequate Memory: Unremarkable Mood: Anxious (Patient reports being frightened by the voice.) Affect: Other (increased range and intensity) Thought Process & Associations: Intact Thought Content: Hallucinations Hallucination Type: Auditory Delusion Type: Paranoid (decreased) Suicidal Ideation: No (denies today) Suicidal Plan: No Suicidal Intention: No Homicidal Ideation: No Homicidal Plan: No Homicidal Intention: No Insight: Adequate Judgment: Adequate Discharge/Advance Care Plan Health Problems: (1) Brief psychotic disorder Goals to promote your health * To prevent worsening of your condition and complications * To maintain your health at the optimal level Directions to meet your goals Take your medications as prescribed Follow your dietary instruction Follow activity as directed Keep your appointments as scheduled Take your immunizations and boosters as scheduled If your symptoms worsen call your PCP, if no PCP go to Urgent Care Center or Emergency Room For 03/04 questions related to your inpatient stay or results of tests pending at discharge, please contact Dr. Carlos Alberto Carrizales at Smoking is Dangerous to Your Health. Avoid second hand smoking Carlos Alberto Carrizales MD Nov 06, 2017 15:26
== END 2017-11-06 18:00 | disposition home or self-care (01) | DRG 885 ==
LOC: H260 10-29 02:41
PROVIDERS: ADMIT Psychiatry & Neurology Psychiatry; ATTEND Psychiatry & Neurology Psychiatry
DX: F23 Brief psychotic disorder (principal); G62.9 Polyneuropathy, unspecified; I10 Essential (primary) hypertension; N39.0 Urinary tract infection, site not specified; E03.9 Hypothyroidism, unspecified; K21.9 Gastro-esophageal reflux disease without esophagitis; R09.82 Postnasal drip; M54.30 Sciatica, unspecified side; F17.210 Nicotine dependence, cigarettes, uncomplicated
CPT/HCPCS: 80048; 84439; 84443; 84481; 85025; J7512; Q0163

== ENCOUNTER 2018-08-20 12:12 | Inpatient (IN) ==
[2018-08-20] MEDS: Sod Chloride 0.9% Inj 1,000 ML IV.SIG SCH ×2 (13:45→14:12)
[2018-08-20 13:48] LABS: Baso % (Auto) 0.2 % (0.0-2.0); Eos % (Auto) 0.1 % (0.0-4.0); Hemoglobin 11.5 gm/dL (11.6-15.3); Lymph # (Auto) 0.7 th/mm3 (1.0-4.8); Mean Corpuscular HGB Conc 34.9 % (32.0-36.0); Mean Corpuscular Hemoglobin 28.8 pg (27.0-34.0); Mean Corpuscular Volume 82.4 fL (80.0-100.0); Mean Platelet Volume 8.9 fL (7.0-11.0); Mono # (Auto) 1.5 th/mm3 (0.0-0.9); Mono % (Auto) 10.9 % (0.0-8.0); Neut # (Auto) 11.3 th/mm3 (1.8-7.7); Neut % (Auto) 83.8 % (16.0-70.0); Platelet Count 214 th/mm3 (150-450); Red Cell Distribution Width 14.4 % (11.6-17.2); White Blood Count 13.5 th/mm3 (4.0-11.0)
[2018-08-20 13:54] LABS: Amorphous Sediment,Urine Rare /hpf; Bacteria,Urine Many /hpf; Bilirubin,Urine Negative (Negative); Clarity,Urine Turbid (Clear); Color,Urine Amber (Yellw/Straw); Glucose,Urine (UA) Negative (Negative); Leukocyte Esterase,Urine Large (Negative); Nitrite,Urine Negative (Negative); Specific Gravity,Urine 1.015 (1.002-1.035)
[2018-08-20 14:09] LABS: Alanine Aminotransferase 19 U/L (10-53); Albumin 3.1 g/dL (3.4-5.0); Anion Gap 12 meq/L (5-15); Aspartate Aminotransferase 21 U/L (15-37); Blood Urea Nitrogen 37 mg/dL (7-18); Calcium 8.9 mg/dL (8.5-10.1); Carbon Dioxide 22.3 meq/L (21.0-32.0); Chloride 104 meq/L (98-107); Glomerular Filtration Rate 21 mL/min (>89); Glucose,Random 142 mg/dL (74-106); Magnesium 2.2 mg/dL (1.5-2.5); Potassium 3.7 meq/L (3.5-5.1); Sodium 138 meq/L (136-145)
[2018-08-20 14:12] LABS: Alkaline Phosphatase 90 U/L (45-117); Total Protein 8.3 g/dL (6.4-8.2)
[2018-08-20 14:22] LABS: Free T4 (Free Thyroxine) 1.14 ng/dL (0.76-1.46); Thyroid Stimulating Hormone 4.18 uIU/mL (0.358-3.740); Triiodothyronine (T3) Free 0.8 pg/mL (2.18-3.98)
--- NOTE | 2018-08-20 14:23 | XR ---
EXAM DATE: 08/20/2018 2:19 PM EST AGE/SEX: 57 years / Female INDICATIONS: Fever, cough, and shortness of breath on occasion. CLINICAL DATA: This is the patient's initial encounter. Patient reports that signs and symptoms have been present for 1 day and indicates a pain score of 0/10. MEDICAL/SURGICAL HISTORY: Hypertension. Angioplasty. COMPARISON: [facility], CHEST SINGLE AP, 10/19/2015. . FINDINGS: A single AP view of the chest demonstrates the lungs to be symmetrically aerated without evidence of mass, infiltrate or effusion. Minimal elevation of the right hemidiaphragm The cardiomediastinal cont ours are unremarkable. Osseous structures are intact. CONCLUSION: Minimal elevation right hemidiaphragm without obvious infiltrate. Electronically signed by: Conor Franco MD 08/20/2018 2:22 PM EST
--- NOTE | 2018-08-20 14:55 | ED ---
HPI General Chief complaint: Altered Mental Status Stated complaint: Abd pain/medical Time Seen by Provider: 08/20/18 12:56 History of Present Illness HPI narrative: 57-year-old female history of psychiatric disease as well as hypothyroidism on replacement presents emergency department with her for evaluation of altered mental status for the past 2-3 days. Patient also been sweaty at home and she is been running a fever. According to him she is just been acting odd and he is unsure if she has been taking her medications. She is unable to provide much of her history it is very unfocused and appears ill. When asked direct questions she denies any chest pain shortness of breath abdominal pain nausea vomiting diarrhea or constipation. Symptoms moderate, for the past few days, gradually worsening, associated signs symptoms and contacts as above. Related Data Home Medications Medication Instructions Recorded Confirmed benztropine 1 mg PO DAILY 08/20/18 08/20/18 gabapentin 300 mg PO DAILY 08/20/18 08/20/18 levothyroxine 88 mcg PO DAILY 08/20/18 08/20/18 olanzapine 15 mg PO DAILY 08/20/18 08/20/18 omeprazole 20 mg PO DAILY 08/20/18 08/20/18 Allergies Allergy/AdvReac Type Severity Reaction Status Date / Time sulfamethoxazole Allergy Severe Itching Verified 08/20/18 14:02 trimethoprim Allergy Severe Hives Verified 08/20/18 14:02 tomato Allergy Intermediate Hives Verified 08/20/18 14:02 wool AdvReac Intermediate Hives Uncoded 08/20/18 14:02 Review of Systems ROS: all other systems reviewed are negative PMFSH Social History Social History Substance History: No History of Abuse Second Hand Smoke Exposure: No Smoking Status: Former smoker Tobacco Type: Cigarettes How Often Do You Have a Drink Containing Alcohol: Never Recent Travel in [facility] within the Last 8 Weeks: No Recent Out of Country Travel within the Last 8 Weeks: No Immunization History Tetanus Immunization: >5 Years Exam Narrative Exam Narrative: GENERAL: Well-developed well-nourished appears ill. SKIN: Focused skin assessment warm/dry. HEAD: Atraumatic. Normocephalic. EYES: Pupils equal and round. No scleral icterus. No injection or drainage. ENT: No nasal bleeding or discharge. Mucous membranes pink and moist. NECK: Trachea midline. No JVD. CARDIOVASCULAR: Regular rhythm with tachycardia. No murmur appreciated. 2+ but equal pulses in all 4 extremity RESPIRATORY: No accessory muscle use. Clear to auscultation. Breath sounds equal bilaterally. GASTROINTESTINAL: Abdomen soft, breast minimally tender in the left upper quadrant but not reproducible finding. nondistended. Hepatic and splenic margins not palpable. MUSCULOSKELETAL: No obvious deformities. No clubbing. No cyanosis. No edema. NEUROLOGICAL: Awake and alert. No obvious cranial nerve deficits. Motor grossly within normal limits. Normal speech. PSYCHIATRIC: Appropriate mood and affect; insight and judgment normal. Course Initial Documented Vital Signs Temperature 102.2 F H 08/20/18 12:33 Pulse Rate 108 H 08/20/18 12:33 Respiratory Rate 22 08/20/18 12:33 Blood Pressure 126/71 08/20/18 12:33 Pulse Oximetry 97 08/20/18 12:33 Last Documented Vital Signs Temperature 97.7 F 08/24/18 16:00 Pulse Rate 72 08/24/18 16:00 Respiratory Rate 18 08/24/18 16:00 Blood Pressure 158/84 H 08/24/18 16:00 Pulse Oximetry 100 08/24/18 16:00 Medical Decision Making MDM Narrative Medical decision making narrative: Patient room to the emergency department, found to be in UTI with sepsis, blood cultures drawn, lactic acid normal, she does also have an elevated creatinine and 2 L normal saline bolus was given here in the emergency department, she was also given Rocephin IV. Blood pressure remained stable, heart rate is normalizing. Discussed with her recommend for admission and he is agreeable. Discussed with Dr. Martinez for admission for UTI and sepsis. CT head and abdomen have been ordered I think is a probably low yield tests but are still pending at the time of admission per Medical Screen Exam Complete: Yes Emergency Medical Condition: Yes Lab Data Result diagrams: 08/22/18 04:13 08/24/18 05:09 Lab Results 08/20/18 08/20/18 08/20/18 Range/Units 13:27 13:27 13:27 WBC 13.5 H (4.0-11.0) th/mm3 RBC 4.00 (4.00-5.30) mil/mm3 Hgb 11.5 L (11.6-15.3) gm/dL Hct 33.0 L (35.0-46.0) % MCV 82.4 (80.0-100.0) fL MCH 28.8 (27.0-34.0) pg MCHC 34.9 (32.0-36.0) % RDW 14.4 (11.6-17.2) % Plt Count 214 (150-450) th/mm3 MPV 8.9 (7.0-11.0) fL Prelim Diff (Auto) Neut % (Auto) 83.8 H (16.0-70.0) % Lymph % (Auto) 5.0 L (9.0-44.0) % [place] % (Auto) 10.9 H (0.0-8.0) % Eos % (Auto) 0.1 (0.0-4.0) % Baso % (Auto) 0.2 (0.0-2.0) % Neut # (Auto) 11.3 H (1.8-7.7) th/mm3 Lymph # (Auto) 0.7 L (1.0-4.8) th/mm3 [place] # (Auto) 1.5 H (0.0-0.9) th/mm3 Eos # (Auto) 0.0 (0.0-0.4) th/mm3 Baso # (Auto) 0.0 (0.0-0.2) th/mm3 WBC Differential . Seg Neuts % (Manual) (16-70) % Band Neuts % (Manual) (0-6) % Lymphocytes % (Manual) (9-44) % Monocytes % (Manual) (0-8) % Eosinophils % (Manual) (0-4) % Abs Neuts (Manual) (1.8-7.7) th/mm3 Differential Comment Auto diff final Platelet Estimate (Normal) Platelet Morphology (Normal) Sodium 138 (136-145) meq/L Potassium 3.7 (3.5-5.1) meq/L Chloride 104 (98-107) meq/L Carbon Dioxide 22.3 (21.0-32.0) meq/L Anion Gap 12 (5-15) meq/L BUN 37 H (7-18) mg/dL Creatinine 2.36 H (0.50-1.00) mg/dL Estimated GFR 21 L (>89) mL/min POC Glucose (68-110) mg/dl Random Glucose 142 H (74-106) mg/dL Lactic Acid 1.3 (0.4-2.0) mmol/L Calcium 8.9 (8.5-10.1) mg/dL Magnesium 2.2 (1.5-2.5) mg/dL Total Bilirubin 0.8 (0.2-1.0) mg/dL AST 21 (15-37) U/L ALT 19 (10-53) U/L Alkaline Phosphatase 90 (45-117) U/L Total Protein 8.3 H (6.4-8.2) g/dL Albumin 3.1 L (3.4-5.0) g/dL TSH (0.358-3.740) uIU/mL Free T4 (0.76-1.46) ng/dL Free T3 (2.18-3.98) pg/mL Urine Color (Yellw/Straw) Urine Clarity (Clear) Urine pH (5.0-8.5) Ur Specific [place] (1.002-1.035) Urine Protein (Neg-Trace) mg/dL Urine Glucose (UA) (Negative) mg/dL Urine Ketones (Negative) mg/dL Urine Occult Blood (Negative) Urine Nitrate (Negative) Urine Bilirubin (Negative) Urine Urobilinogen (Less than 2) mg/dL Ur Leukocyte Esterase (Negative) Urine RBC (0-3) /hpf Urine WBC (0-5) /hpf Urine WBC Clumps (None) Amorphous Sediment (None) /hpf Urine Bacteria (None) /hpf Granular Casts (None) /lpf Micro UA Comment Ur Microscopic Review Urine Culture Comments 08/20/18 08/20/18 08/20/18 Range/Units 13:27 13:40 13:43 WBC (4.0-11.0) th/mm3 RBC (4.00-5.30) mil/mm3 Hgb (11.6-15.3) gm/dL Hct (35.0-46.0) % MCV (80.0-100.0) fL MCH (27.0-34.0) pg MCHC (32.0-36.0) % RDW (11.6-17.2) % Plt Count (150-450) th/mm3 MPV (7.0-11.0) fL Prelim Diff (Auto) Neut % (Auto) (16.0-70.0) % Lymph % (Auto) (9.0-44.0) % [place] % (Auto) (0.0-8.0) % Eos % (Auto) (0.0-4.0) % Baso % (Auto) (0.0-2.0) % Neut # (Auto) (1.8-7.7) th/mm3 Lymph # (Auto) (1.0-4.8) th/mm3 [place] # (Auto) (0.0-0.9) th/mm3 Eos # (Auto) (0.0-0.4) th/mm3 Baso # (Auto) (0.0-0.2) th/mm3 WBC Differential Seg Neuts % (Manual) (16-70) % Band Neuts % (Manual) (0-6) % Lymphocytes % (Manual) (9-44) % Monocytes % (Manual) (0-8) % Eosinophils % (Manual) (0-4) % Abs Neuts (Manual) (1.8-7.7) th/mm3 Differential Comment Platelet Estimate (Normal) Platelet Morphology (Normal) Sodium (136-145) meq/L Potassium (3.5-5.1) meq/L Chloride (98-107) meq/L Carbon Dioxide (21.0-32.0) meq/L Anion Gap (5-15) meq/L BUN (7-18) mg/dL Creatinine (0.50-1.00) mg/dL Estimated GFR (>89) mL/min POC Glucose 149 H (68-110) mg/dl Random Glucose (74-106) mg/dL Lactic Acid (0.4-2.0) mmol/L Calcium (8.5-10.1) mg/dL Magnesium (1.5-2.5) mg/dL Total Bilirubin (0.2-1.0) mg/dL AST (15-37) U/L ALT (10-53) U/L Alkaline Phosphatase (45-117) U/L Total Protein (6.4-8.2) g/dL Albumin (3.4-5.0) g/dL TSH 4.180 H (0.358-3.740) uIU/mL Free T4 1.14 (0.76-1.46) ng/dL Free T3 0.80 L (2.18-3.98) pg/mL Urine Color [place] (Yellw/Straw) Urine Clarity Turbid H (Clear) Urine pH 5.0 (5.0-8.5) Ur Specific [place] 1.015 (1.002-1.035) Urine Protein 100 H (Neg-Trace) mg/dL Urine Glucose (UA) Negative (Negative) mg/dL Urine Ketones Negative (Negative) mg/dL Urine Occult Blood Small H (Negative) Urine Nitrate Negative (Negative) Urine Bilirubin Negative (Negative) Urine Urobilinogen 2.0 H (Less than 2) mg/dL Ur Leukocyte Esterase Large H (Negative) Urine RBC 6 H (0-3) /hpf Urine WBC (0-5) /hpf Urine WBC Clumps Many H (None) Amorphous Sediment Rare H (None) /hpf Urine Bacteria Many H (None) /hpf Granular Casts 47 (None) /lpf Micro UA Comment Cath-culture ind Ur Microscopic Review Not Reportable Urine Culture Comments Cath-cult indicated 08/21/18 08/21/18 08/22/18 Range/Units 04:30 04:50 04:13 WBC 12.6 H 8.9 (4.0-11.0) th/mm3 RBC 3.69 L 3.67 L (4.00-5.30) mil/mm3 Hgb 10.2 L 10.2 L (11.6-15.3) gm/dL Hct 30.8 L 30.5 L (35.0-46.0) % MCV 83.4 83.2 (80.0-100.0) fL MCH 27.7 27.8 (27.0-34.0) pg MCHC 33.2 33.4 (32.0-36.0) % RDW 14.5 14.3 (11.6-17.2) % Plt Count 199 208 (150-450) th/mm3 MPV 9.4 9.7 (7.0-11.0) fL Prelim Diff (Auto) Manual diff required Neut % (Auto) 80.6 H (16.0-70.0) % Lymph % (Auto) 7.3 L (9.0-44.0) % [place] % (Auto) 11.8 H (0.0-8.0) % Eos % (Auto) 0.1 (0.0-4.0) % Baso % (Auto) 0.2 (0.0-2.0) % Neut # (Auto) 10.1 H (1.8-7.7) th/mm3 Lymph # (Auto) 0.9 L (1.0-4.8) th/mm3 [place] # (Auto) 1.5 H (0.0-0.9) th/mm3 Eos # (Auto) 0.0 (0.0-0.4) th/mm3 Baso # (Auto) 0.0 (0.0-0.2) th/mm3 WBC Differential . Manual diff final Seg Neuts % (Manual) 52 (16-70) % Band Neuts % (Manual) 26 H (0-6) % Lymphocytes % (Manual) 14 (9-44) % Monocytes % (Manual) 7 (0-8) % Eosinophils % (Manual) 1 (0-4) % Abs Neuts (Manual) 6.9 (1.8-7.7) th/mm3 Differential Comment Auto diff final . Platelet Estimate Normal (Normal) Platelet Morphology Normal (Normal) Sodium 141 (136-145) meq/L Potassium 3.7 (3.5-5.1) meq/L Chloride 112 H D (98-107) meq/L Carbon Dioxide 17.5 L (21.0-32.0) meq/L Anion Gap 12 (5-15) meq/L BUN 36 H (7-18) mg/dL Creatinine 1.89 H (0.50-1.00) mg/dL Estimated GFR 27 L (>89) mL/min POC Glucose (68-110) mg/dl Random Glucose 122 H (74-106) mg/dL Lactic Acid (0.4-2.0) mmol/L Calcium 8.5 (8.5-10.1) mg/dL Magnesium (1.5-2.5) mg/dL Total Bilirubin 0.4 (0.2-1.0) mg/dL AST 27 (15-37) U/L ALT 21 (10-53) U/L Alkaline Phosphatase 85 (45-117) U/L Total Protein 7.1 D (6.4-8.2) g/dL Albumin 2.7 L (3.4-5.0) g/dL TSH (0.358-3.740) uIU/mL Free T4 (0.76-1.46) ng/dL Free T3 (2.18-3.98) pg/mL Urine Color (Yellw/Straw) Urine Clarity (Clear) Urine pH (5.0-8.5) Ur Specific [place] (1.002-1.035) Urine Protein (Neg-Trace) mg/dL Urine Glucose (UA) (Negative) mg/dL Urine Ketones (Negative) mg/dL Urine Occult Blood (Negative) Urine Nitrate (Negative) Urine Bilirubin (Negative) Urine Urobilinogen (Less than 2) mg/dL Ur Leukocyte Esterase (Negative) Urine RBC (0-3) /hpf Urine WBC (0-5) /hpf Urine WBC Clumps (None) Amorphous Sediment (None) /hpf Urine Bacteria (None) /hpf Granular Casts (None) /lpf Micro UA Comment Ur Microscopic Review Urine Culture Comments 08/22/18 08/23/18 08/24/18 Range/Units 04:13 05:26 05:09 WBC (4.0-11.0) th/mm3 RBC (4.00-5.30) mil/mm3 Hgb (11.6-15.3) gm/dL Hct (35.0-46.0) % MCV (80.0-100.0) fL MCH (27.0-34.0) pg MCHC (32.0-36.0) % RDW (11.6-17.2) % Plt Count (150-450) th/mm3 MPV (7.0-11.0) fL Prelim Diff (Auto) Neut % (Auto) (16.0-70.0) % Lymph % (Auto) (9.0-44.0) % [place] % (Auto) (0.0-8.0) % Eos % (Auto) (0.0-4.0) % Baso % (Auto) (0.0-2.0) % Neut # (Auto) (1.8-7.7) th/mm3 Lymph # (Auto) (1.0-4.8) th/mm3 [place] # (Auto) (0.0-0.9) th/mm3 Eos # (Auto) (0.0-0.4) th/mm3 Baso # (Auto) (0.0-0.2) th/mm3 WBC Differential Seg Neuts % (Manual) (16-70) % Band Neuts % (Manual) (0-6) % Lymphocytes % (Manual) (9-44) % Monocytes % (Manual) (0-8) % Eosinophils % (Manual) (0-4) % Abs Neuts (Manual) (1.8-7.7) th/mm3 Differential Comment Platelet Estimate (Normal) Platelet Morphology (Normal) Sodium 143 146 H 146 H (136-145) meq/L Potassium 3.4 L 3.8 3.3 L (3.5-5.1) meq/L Chloride 114 H 119 H 116 H (98-107) meq/L Carbon Dioxide 18.9 L 19.2 L 19.6 L (21.0-32.0) meq/L Anion Gap 10 8 10 (5-15) meq/L BUN 29 H 19 H 12 (7-18) mg/dL Creatinine 1.63 H 1.39 H 1.29 H (0.50-1.00) mg/dL Estimated GFR 32 L 39 L 42 L (>89) mL/min POC Glucose (68-110) mg/dl Random Glucose 88 97 113 H (74-106) mg/dL Lactic Acid (0.4-2.0) mmol/L Calcium 8.2 L 8.3 L 7.9 L (8.5-10.1) mg/dL Magnesium (1.5-2.5) mg/dL Total Bilirubin 0.2 0.2 0.1 L (0.2-1.0) mg/dL AST 25 28 22 (15-37) U/L ALT 22 23 22 (10-53) U/L Alkaline Phosphatase 74 67 63 (45-117) U/L Total Protein 6.7 6.0 L D 6.0 L (6.4-8.2) g/dL Albumin 2.4 L 2.1 L 2.0 L (3.4-5.0) g/dL TSH (0.358-3.740) uIU/mL Free T4 (0.76-1.46) ng/dL Free T3 (2.18-3.98) pg/mL Urine Color (Yellw/Straw) Urine Clarity (Clear) Urine pH (5.0-8.5) Ur Specific [place] (1.002-1.035) Urine Protein (Neg-Trace) mg/dL Urine Glucose (UA) (Negative) mg/dL Urine Ketones (Negative) mg/dL Urine Occult Blood (Negative) Urine Nitrate (Negative) Urine Bilirubin (Negative) Urine Urobilinogen (Less than 2) mg/dL Ur Leukocyte Esterase (Negative) Urine RBC (0-3) /hpf Urine WBC (0-5) /hpf Urine WBC Clumps (None) Amorphous Sediment (None) /hpf Urine Bacteria (None) /hpf Granular Casts (None) /lpf Micro UA Comment Ur Microscopic Review Urine Culture Comments Imaging Data Radiologist's impression: Chest X-Ray 08/20/18 13:05 CONCLUSION: Minimal elevation right hemidiaphragm without obvious infiltrate. Head CT 08/20/18 13:05 CONCLUSION: 1. Negative noncontrast head CT with motion artifact. . Abdomen/Pelvis CT 08/20/18 14:51 CONCLUSION: 1. Nonspecific bowel gas pattern which may represent an ileus or gastroenteritis. 2. No evidence of primary tumor or adenopathy. Abdomen X-Ray 08/21/18 00:00 CONCLUSION: Mildly nonspecific, nonobstructive bowel gas pattern most characteristic of a mild ileus and/or gastroenteritis. Chest X-Ray 08/22/18 14:53 CONCLUSION: Probable consolidation developing right base. PA and lateral chest would be of benefit Discharge Plan Discharge Disposition Patient Disposition: ED Admit(ED Internal Use Only) Discharge Condition Condition: Fair Discharge Order Discharge Orders: ED Use Only Admit Order (Routine); Ordered 08/20/18 Ordered By: Fazal Subramanian Discharge Details Diagnosis: Sepsis, Altered mental status, Delirium due to general medical condition, Acute UTI Physicians Team ED Provider: Fazal Subramanian Primary Care Provider: UNKNOWN, Attending Provider: Eloy Martinez Other Providers: Jung Macias ; [facility],Insurance Status ED Status: Left Department Discharge Information Discharge Date/Time: 08/20/18 18:41
--- NOTE | 2018-08-20 15:32 | P.HP ---
History of Present Illness Primary Care Physician: UNKNOWN Chief Complaint: Altered mental status change History of Present Illness: 57-year-old female with past medical history of hypertension, hypothyroidism, schizophrenia was brought to the emergency department for evaluation of altered mental status change times 2-3 days duration. Patient was confused during my exam and only oriented to self, place but not date or time. Per Ed note, "patient Patient also been sweaty at home and she is been running a fever. According to him she is just been acting odd and he is unsure if she has been taking her medications. She is unable to provide much of her history it is very unfocused and appears ill.". She only complains of shortness of breath but denies any dysuria symptoms Inpatient Certification: I certify that the inpatient services were ordered in accordance with Medicare regulations governing the order. This includes certification that hospital inpatient services are reasonable and necessary and in the case of services not specified as inpatient-only under 42 CFR 419.22(n), that they are appropriately provided as inpatient services in accordance to with the 2-midnight benchmark under 43 CFR 412.3(e) Estimated Total Length of Stay (Days): 2 Plans for Post Hospital Care: Not yet determined Review of Systems unobtainable due to mental status PMFSH - History History Provided By: Patient - Medical History Medical History: Medical History (Last Reviewed 08/20/18 @ 13:04 by Tory Andersen RN) Hypothyroid Schizophrenia - Family History Family History: Family History (Last Updated 08/20/18 @ 15:55 by Eloy Martinez MD) Other Family history non-contributory - Tobacco History Tobacco Use In Past 30 Days: Yes Smoking Status: Light tobacco smoker Tobacco Type: Cigarettes - Alcohol History How Often Do You Have a Drink Containing Alcohol: Never - Substance Use History Substance History: No History of Abuse - Travel History Recent Travel in the [place] Within the Last 8 Weeks: No Recent Travel Out of the Country Within the Last 8 Weeks: No - Immunization History Tetanus Immunization: >5 Years Medications and Allergies Active Medications: Active Medications Acetaminophen (Tylenol) 650 mg PO Q4H PRN PRN Reason: Temp > 100.4 Al Hydroxide/Mg Hydroxide (Milk Of Magnesia Liq) 30 ml PO Q12H PRN PRN Reason: Mild Constipation Ceftriaxone Sodium 1,000 mg/ (Sodium Chloride) 100 mls @ 200 mls/hr IV.SIG Q24H NANCY Sodium Chloride (Ns Inj) 1,000 mls @ 70 mls/hr IV.CONT .[id number] NANCY Ondansetron HCl (Zofran Inj) 4 mg IV.PUSH Q6H PRN PRN Reason: NAUSEA OR VOMITING Sodium Chloride (Ns Flush) 2 ml IV.FLUSH BID NANCY Sodium Chloride (Ns Flush) 2 ml IV.FLUSH PRN PRN PRN Reason: FLUSH AFTER USING IV ACCESS Allergies Allergy/AdvReac Type Severity Reaction Status Date / Time sulfamethoxazole Allergy Severe Itching Verified 08/20/18 14:02 trimethoprim Allergy Severe Hives Verified 08/20/18 14:02 tomato Allergy Intermediate Hives Verified 08/20/18 14:02 wool AdvReac Intermediate Hives Uncoded 08/20/18 14:02 Home Medications Medication Instructions Recorded Confirmed Type benztropine 1 mg PO DAILY 08/20/18 08/20/18 History gabapentin 300 mg PO DAILY 08/20/18 08/20/18 History levothyroxine 88 mcg PO DAILY 08/20/18 08/20/18 History olanzapine 15 mg PO DAILY 08/20/18 08/20/18 History omeprazole 20 mg PO DAILY 08/20/18 08/20/18 History Exam Vital signs: Vital Signs 08/20/18 12:33 08/20/18 13:07 Temperature 102.2 F H Pulse Rate 108 H 105 H Respiratory Rate 22 16 Blood Pressure 126/71 112/77 Pulse Oximetry 97 99 Intake & Output 08/19/18 08/20/18 08/20/18 18:59 06:59 18:59 Intake Total 2099 Balance 2099 Weight 74.843 kg Intake: IV 2099 NS Inj 1,000 ML @ 2000 mls/hr 1999 IV.SIG Q30M [facility] Rx#:[id number] Rocephin Inj 1,000 MG In NS Inj 100 / 100 100 ML @ 200 mls/hr IV.SIG ONCE ONE Rx#:[id number] Narrative: GENERAL: NAD but confused SKIN: Warm and dry. HEAD: Atraumatic. Normocephalic. EYES: Pupils equal and round. No scleral icterus. No injection or drainage. ENT: No nasal bleeding or discharge. Mucous membranes pink and moist. NECK: Trachea midline. No JVD. CARDIOVASCULAR: Regular rate and rhythm. RESPIRATORY: No accessory muscle use. Clear to auscultation. Breath sounds equal bilaterally. GASTROINTESTINAL: Abdomen soft, non-tender, nondistended. Hepatic and splenic margins not palpable. MUSCULOSKELETAL: Extremities without clubbing, cyanosis, or edema. No obvious deformities. NEUROLOGICAL: Awake and alert. No obvious cranial nerve deficits. Motor grossly within normal limits. Five out of 5 muscle strength in the arms and legs. Normal speech. PSYCHIATRIC: Appropriate mood and affect; insight and judgment normal. Results - Labs CBC & Chem 7: 08/20/18 13:27 08/20/18 13:27 Labs: Laboratory Results - last 24 hr 08/20/18 08/20/18 08/20/18 13:27 13:27 13:27 WBC 13.5 H RBC 4.00 Hgb 11.5 L Hct 33.0 L MCV 82.4 MCH 28.8 MCHC 34.9 RDW 14.4 Plt Count 214 MPV 8.9 Neut % (Auto) 83.8 H Lymph % (Auto) 5.0 L [place] % (Auto) 10.9 H Eos % (Auto) 0.1 Baso % (Auto) 0.2 Neut # (Auto) 11.3 H Lymph # (Auto) 0.7 L [place] # (Auto) 1.5 H Eos # (Auto) 0.0 Baso # (Auto) 0.0 WBC Differential . Differential Comment Auto diff final Sodium 138 Potassium 3.7 Chloride 104 Carbon Dioxide 22.3 Anion Gap 12 BUN 37 H Creatinine 2.36 H Estimated GFR 21 L POC Glucose Random Glucose 142 H Lactic Acid 1.3 Calcium 8.9 Magnesium 2.2 Total Bilirubin 0.8 AST 21 ALT 19 Alkaline Phosphatase 90 Total Protein 8.3 H Albumin 3.1 L TSH Free T4 Free T3 Urine Color Urine Clarity Urine pH Ur Specific [place] Urine Protein Urine Glucose (UA) Urine Ketones Urine Occult Blood Urine Nitrate Urine Bilirubin Urine Urobilinogen Ur Leukocyte Esterase Urine RBC Urine WBC Urine WBC Clumps Amorphous Sediment Urine Bacteria Granular Casts Micro UA Comment Ur Microscopic Review Urine Culture Comments 08/20/18 08/20/18 08/20/18 13:27 13:40 13:43 WBC RBC Hgb Hct MCV MCH MCHC RDW Plt Count MPV Neut % (Auto) Lymph % (Auto) [place] % (Auto) Eos % (Auto) Baso % (Auto) Neut # (Auto) Lymph # (Auto) [place] # (Auto) Eos # (Auto) Baso # (Auto) WBC Differential Differential Comment Sodium Potassium Chloride Carbon Dioxide Anion Gap BUN Creatinine Estimated GFR POC Glucose 149 H Random Glucose Lactic Acid Calcium Magnesium Total Bilirubin AST ALT Alkaline Phosphatase Total Protein Albumin TSH 4.180 H Free T4 1.14 Free T3 0.80 L Urine Color Sheila Urine Clarity Turbid H Urine pH 5.0 Ur Specific [place] 1.015 Urine Protein 100 H Urine Glucose (UA) Negative Urine Ketones Negative Urine Occult Blood Small H Urine Nitrate Negative Urine Bilirubin Negative Urine Urobilinogen 2.0 H Ur Leukocyte Esterase Large H Urine RBC 6 H Urine WBC Urine WBC Clumps Many H Amorphous Sediment Rare H Urine Bacteria Many H Granular Casts 47 Micro UA Comment Cath-culture ind Ur Microscopic Review Not Reportable Urine Culture Comments Cath-cult indicated - Imaging Impressions Chest X-Ray 08/20/18 13:05 CONCLUSION: Minimal elevation right hemidiaphragm without obvious infiltrate. Caprini VTE Risk Assessment Caprini VTE Risk Assessment: No/Low Risk (score <= 1) Caprini Risk Assessment Model: Point Value = 1 Point Value = 2 Point Value = 3 Point Value = 5 Age 41-60 Minor surgery BMI > 25 kg/m2 Swollen legs Varicose veins or History of unexplained or recurrent spontaneous Oral contraceptives or hormone replacement Sepsis (< 1 month) Serious lung disease, including pneumonia (< 1 month) Abnormal pulmonary function Acute myocardial infarction Congestive heart failure (< 1 month) History of inflammatory bowel disease Medical patient at bed rest Age 61-74 Arthroscopic surgery Major open surgery (> 45 min) Laparoscopic surgery (> 45 min) Malignancy Confined to bed (> 72 hours) Immobilizing plaster cast Central venous access Age >= 75 History of VTE Family history of VTE Factor V Leiden Prothrombin [id number] Lupus anticoagulant Anticardiolipin antibodies Elevated serum homocysteine Heparin-induced thrombocytopenia Other congenital or acquired thrombophilia Stroke (< 1 month) Elective arthroplasty Hip, pelvis, or leg fracture Acute spinal cord injury (< 1 month) Prophylaxis Regimen: Total Risk Factor Score Risk Level Prophylaxis Regimen 0-1 Low Early ambulation 2 Moderate Order ONE of the following: *Sequential Compression Device (SCD) *Heparin 5000 units SQ BID 3-4 Higher Order ONE of the following medications: *Heparin 5000 units SQ TID *Enoxaparin/Lovenox 40 mg SQ daily (WT < 150 kg, CrCl > 30 mL/min) *Enoxaparin/Lovenox 30 mg SQ daily (WT < 150 kg, CrCl > 10-29 mL/min) *Enoxaparin/Lovenox 30 mg SQ BID (WT < 150 kg, CrCl > 30 mL/min) AND/OR *Sequential Compression Device (SCD) 5 or more Highest Order ONE of the following medications: *Heparin 5000 units SQ TID (Preferred with Epidurals) *Enoxaparin/Lovenox 40 mg SQ daily (WT < 150 kg, CrCl > 30 mL/min) *Enoxaparin/Lovenox 30 mg SQ daily (WT < 150 kg, CrCl > 10-29 mL/min) *Enoxaparin/Lovenox 30 mg SQ BID (WT < 150 kg, CrCl > 30 mL/min) AND *Sequential Compression Device (SCD) Assessment and Plan - Plan 57-year-old female with Sepsis: Elevated HR,WBC>11,000 and source of infection (UTI) Chest x-ray noted and read by me with finding of Minimal elevation right hemidiaphragm without obvious infiltrate. Status post Rocephin IV x1 in ED, continue antibiotics pending urine and blood culture Urinary tract infection Currently on IV Rocephin daily pending culture report Metabolic encephalopathy From above infectious process, treat as an above Chest x-ray noted and read by me with finding of Minimal elevation right hemidiaphragm without obvious infiltrate. History of hypertension, hypothyroid and other chronic medical conditions Outpatient medications DVT prophylaxis: Bilateral SCDs Code Status: Full code Discussed Condition With: ED physician
[2018-08-20] MEDS: Sod Chloride 0.9% Inj 1,000 ML IV.CONT SCH (16:58)
--- NOTE | 2018-08-20 17:00 | CT ---
EXAM DATE: 08/20/2018 4:55 PM EST AGE/SEX: 57 years / Female INDICATIONS: Altered mental status. CLINICAL DATA: This is the patient's initial encounter. Patient reports that signs and symptoms have been present for 1 day and indicates a pain score of 0/10. MEDICAL/SURGICAL HISTORY: Hyperthyroidism. Schizophrenia None. RADIATION DOSE: 42.35 CTDI (mGy) COMPARISON: [facility] [place], CT BRAIN W/O CONTRAST, 06/06/2017. . TECHNIQUE: CT of the head without contrast. Using automated exposure control and adjustment of the mA and/or kV according to patient size, radiation dose was kept as low as reasonably achievable to ob tain optimal diagnostic quality images. DICOM format image data is available electronically for revi ew and comparison. FINDINGS: Study is degraded by motion artifact. Cerebrum: The ventricles are normal for age. No evidence of midline shift, mass lesion, hemorrhage or acute infarction. No extraaxial fluid collections are seen. Posterior Fossa: The cerebellum and brainstem are intact. The 4th ventricle is midline. The cerebe llopontine angle is unremarkable. Extracranial: The visualized portion of the orbits is intact. Skull: The calvaria is intact. No evidence of skull fracture. CONCLUSION: 1. Negative noncontrast head CT with motion artifact. . Electronically signed by: Estevan Villalba MD 08/20/2018 4:59 PM EST
--- NOTE | 2018-08-20 17:03 | CT ---
EXAM DATE: 08/20/2018 4:58 PM EST AGE/SEX: 57 years / Female INDICATIONS: Failure to thrive past 3days. CLINICAL DATA: This is the patient's initial encounter. Patient reports that signs and symptoms have been present for 3 days and indicates a pain score of 0/10. MEDICAL/SURGICAL HISTORY: Hyperthyroidism. Schizophrenia None. RADIATION DOSE: 16.49 CTDI (mGy) COMPARISON: [facility] [place], CT ABDOMEN & PELVIS W/O CONTRAST, 10/19/2015. . TECHNIQUE: Multiple contiguous axial images were obtained through the abdomen. Images were obtained using multiple row detector helical technique. Using automated exposure control and adjustment of the mA and/or kV according to patient size, radiation dose was kept as low as reasonably achievable to o btain optimal diagnostic quality images. DICOM format image data is available electronically for rev iew and comparison. FINDINGS: Lower Lungs: The visualized lower lungs are clear. Liver: The liver has a homogeneous density without space-occupying lesion. There is no dilation of th e biliary tree. Gallbladder remains unremarkable. Spleen: Homogeneous density without enlargement. Pancreas: Unremarkable without mass or calcification. Kidneys: Normal in size and shape. No evidence of mass or hydronephrosis. Adrenal Glands: Unremarkable. Aorta: The aorta and proximal iliac vessels are grossly unremarkable without aneurysmal dilation. Bowel/Mesentery: No oral contrast was given limiting the sensitivity exam. There are multiple loops of nondilated air-containing small bowel now noted with multiple air-fluid levels. Gas and stool is n oted segmentally in the colon. There is no free air or fluid. Multiple diverticuli are again noted in the sigmoid colon. Abdominal Wall: Intact. Retroperitoneum: No evidence of adenopathy in the retrocrural, para-aortic, or deep pelvic regions. Bladder: Contours are smooth. Reproductive Organs: No abnormal masses or calcifications seen. Inguinal: The inguinal region is unremarkable without evidence of adenopathy. Bony Structures: Unremarkable. CONCLUSION: 1. Nonspecific bowel gas pattern which may represent an ileus or gastroenteritis. 2. No evidence of primary tumor or adenopathy. Electronically signed by: Estevan Villalba MD 08/20/2018 5:02 PM EST
[2018-08-20] MEDS: Acetaminophen 325 MG Tablet PO PRN (18:06)
[2018-08-20] MEDS: Metoprolol Tartrate 25 MG Tablet PO SCH (21:03)
[2018-08-21 06:21] LABS: Baso % (Auto) 0.2 % (0.0-2.0); Eos % (Auto) 0.1 % (0.0-4.0); Hematocrit 30.8 % (35.0-46.0); Hemoglobin 10.2 gm/dL (11.6-15.3); Lymph # (Auto) 0.9 th/mm3 (1.0-4.8); Lymph % (Auto) 7.3 % (9.0-44.0); Mean Corpuscular HGB Conc 33.2 % (32.0-36.0); Mean Corpuscular Hemoglobin 27.7 pg (27.0-34.0); Mean Corpuscular Volume 83.4 fL (80.0-100.0); Mean Platelet Volume 9.4 fL (7.0-11.0); Mono # (Auto) 1.5 th/mm3 (0.0-0.9); Mono % (Auto) 11.8 % (0.0-8.0); Neut # (Auto) 10.1 th/mm3 (1.8-7.7); Neut % (Auto) 80.6 % (16.0-70.0); Platelet Count 199 th/mm3 (150-450); Red Blood Count 3.69 mil/mm3 (4.00-5.30); Red Cell Distribution Width 14.5 % (11.6-17.2); White Blood Count 12.6 th/mm3 (4.0-11.0)
[2018-08-21] MEDS: Sod Chloride 0.9% Inj 1,000 ML IV.CONT SCH ×2 (06:34→21:08)
[2018-08-21] MEDS: Levothyroxine 88 MCG Tablet PO SCH (06:35)
[2018-08-21 06:43] LABS: Alanine Aminotransferase 21 U/L (10-53); Albumin 2.7 g/dL (3.4-5.0); Alkaline Phosphatase 85 U/L (45-117); Anion Gap 12 meq/L (5-15); Aspartate Aminotransferase 27 U/L (15-37); Blood Urea Nitrogen 36 mg/dL (7-18); Calcium 8.5 mg/dL (8.5-10.1); Carbon Dioxide 17.5 meq/L (21.0-32.0); Chloride 112 meq/L (98-107); Glomerular Filtration Rate 27 mL/min (>89); Glucose,Random 122 mg/dL (74-106); Potassium 3.7 meq/L (3.5-5.1); Sodium 141 meq/L (136-145); Total Protein 7.1 g/dL (6.4-8.2)
[2018-08-21] MEDS: Pantoprazole Sodium 20 MG DR Tablet PO SCH (09:42)
[2018-08-21] MEDS: Metoprolol Tartrate 25 MG Tablet PO SCH ×2 (09:42→21:06)
[2018-08-21] MEDS: OLANZapine 15 MG Tablet PO SCH (09:42)
[2018-08-21] MEDS: Gabapentin 300 MG Capsule PO SCH (09:42)
--- NOTE | 2018-08-21 10:14 | P.PN ---
Subjective Interval history: Follow-up sepsis/UTI and bacteremia August 21, 2018-patient seen and examined, plan of emesis, nausea and had episode of diarrhea overnight. Mentation improved this morning. Renal indices improving. Physical Exam Vital signs: Vital Signs 08/20/18 12:33 08/20/18 13:07 08/20/18 16:58 Temperature 102.2 F H Pulse Rate 108 H 105 H 115 H Respiratory Rate 22 16 16 Blood Pressure 126/71 112/77 181/90 H Pulse Oximetry 97 99 99 08/20/18 17:55 08/20/18 20:00 08/21/18 00:00 Temperature 102.0 F H 98.1 F 98.0 F Pulse Rate 111 H 95 H 68 Respiratory Rate 18 20 20 Blood Pressure 140/67 118/62 118/76 Pulse Oximetry 98 94 L 97 08/21/18 04:00 08/21/18 08:00 Temperature 97.8 F 98.4 F Pulse Rate 89 71 Respiratory Rate 19 18 Blood Pressure 148/75 H 130/78 Pulse Oximetry 96 96 Intake & Output 08/20/18 08/21/18 08/21/18 18:59 06:59 18:59 Intake Total 2100 / 2100 1400 / 1400 Balance 2100 / 2100 1400 / 1400 Weight 74.843 kg 74 kg Intake: IV 2100 / 2100 1000 / 1000 NS Inj 1,000 ML @ 70 mls/hr IV. 1000 / 1000 CONT .[id number] [facility] Rx#:[id number] NS Inj 1,000 ML @ 2000 mls/hr 2000 / 2000 IV.SIG Q30M [facility] Rx#:[id number] Rocephin Inj 1,000 MG In NS Inj 100 / 100 100 ML @ 200 mls/hr IV.SIG ONCE ONE Rx#:[id number] Oral 400 / 400 Other: # Voids 2 Date of Last Bowel Movement 08/20/18 # Bowel Movements 2 # Incontinent Bowel Movements 1 Weight On Admission 74 kg Narrative: GENERAL: NAD SKIN: Warm and dry. HEAD: Atraumatic. Normocephalic. EYES: Pupils equal and round. No scleral icterus. No injection or drainage. ENT: No nasal bleeding or discharge. Mucous membranes pink and moist. NECK: Trachea midline. No JVD. CARDIOVASCULAR: Regular rate and rhythm. RESPIRATORY: No accessory muscle use. Clear to auscultation. Breath sounds equal bilaterally. GASTROINTESTINAL: Abdomen soft, non-tender, nondistended. Hepatic and splenic margins not palpable. MUSCULOSKELETAL: Extremities without clubbing, cyanosis, or edema. No obvious deformities. NEUROLOGICAL: Awake and alert. No obvious cranial nerve deficits. Motor grossly within normal limits. Five out of 5 muscle strength in the arms and legs. Normal speech. PSYCHIATRIC: Appropriate mood and affect; insight and judgment normal. Results - Labs CBC & Chem 7: 08/21/18 04:30 08/21/18 04:50 Laboratory Results - last 24 hr 08/20/18 08/20/18 08/20/18 13:27 13:27 13:27 WBC 13.5 H RBC 4.00 Hgb 11.5 L Hct 33.0 L MCV 82.4 MCH 28.8 MCHC 34.9 RDW 14.4 Plt Count 214 MPV 8.9 Neut % (Auto) 83.8 H Lymph % (Auto) 5.0 L [place] % (Auto) 10.9 H Eos % (Auto) 0.1 Baso % (Auto) 0.2 Neut # (Auto) 11.3 H Lymph # (Auto) 0.7 L [place] # (Auto) 1.5 H Eos # (Auto) 0.0 Baso # (Auto) 0.0 WBC Differential . Differential Comment Auto diff final Sodium 138 Potassium 3.7 Chloride 104 Carbon Dioxide 22.3 Anion Gap 12 BUN 37 H Creatinine 2.36 H Estimated GFR 21 L POC Glucose Random Glucose 142 H Lactic Acid 1.3 Calcium 8.9 Magnesium 2.2 Total Bilirubin 0.8 AST 21 ALT 19 Alkaline Phosphatase 90 Total Protein 8.3 H Albumin 3.1 L TSH Free T4 Free T3 Urine Color Urine Clarity Urine pH Ur Specific Page Urine Protein Urine Glucose (UA) Urine Ketones Urine Occult Blood Urine Nitrate Urine Bilirubin Urine Urobilinogen Ur Leukocyte Esterase Urine RBC Urine WBC Urine WBC Clumps Amorphous Sediment Urine Bacteria Granular Casts Micro UA Comment Ur Microscopic Review Urine Culture Comments 08/20/18 08/20/18 08/20/18 13:27 13:40 13:43 WBC RBC Hgb Hct MCV MCH MCHC RDW Plt Count MPV Neut % (Auto) Lymph % (Auto) [place] % (Auto) Eos % (Auto) Baso % (Auto) Neut # (Auto) Lymph # (Auto) [place] # (Auto) Eos # (Auto) Baso # (Auto) WBC Differential Differential Comment Sodium Potassium Chloride Carbon Dioxide Anion Gap BUN Creatinine Estimated GFR POC Glucose 149 H Random Glucose Lactic Acid Calcium Magnesium Total Bilirubin AST ALT Alkaline Phosphatase Total Protein Albumin TSH 4.180 H Free T4 1.14 Free T3 0.80 L Urine Color Sheila Urine Clarity Turbid H Urine pH 5.0 Ur Specific Page 1.015 Urine Protein 100 H Urine Glucose (UA) Negative Urine Ketones Negative Urine Occult Blood Small H Urine Nitrate Negative Urine Bilirubin Negative Urine Urobilinogen 2.0 H Ur Leukocyte Esterase Large H Urine RBC 6 H Urine WBC Urine WBC Clumps Many H Amorphous Sediment Rare H Urine Bacteria Many H Granular Casts 47 Micro UA Comment Cath-culture ind Ur Microscopic Review Not Reportable Urine Culture Comments Cath-cult indicated 08/21/18 08/21/18 04:30 04:50 WBC 12.6 H RBC 3.69 L Hgb 10.2 L Hct 30.8 L MCV 83.4 MCH 27.7 MCHC 33.2 RDW 14.5 Plt Count 199 MPV 9.4 Neut % (Auto) 80.6 H Lymph % (Auto) 7.3 L [place] % (Auto) 11.8 H Eos % (Auto) 0.1 Baso % (Auto) 0.2 Neut # (Auto) 10.1 H Lymph # (Auto) 0.9 L [place] # (Auto) 1.5 H Eos # (Auto) 0.0 Baso # (Auto) 0.0 WBC Differential . Differential Comment Auto diff final Sodium 141 Potassium 3.7 Chloride 112 H D Carbon Dioxide 17.5 L Anion Gap 12 BUN 36 H Creatinine 1.89 H Estimated GFR 27 L POC Glucose Random Glucose 122 H Lactic Acid Calcium 8.5 Magnesium Total Bilirubin 0.4 AST 27 ALT 21 Alkaline Phosphatase 85 Total Protein 7.1 D Albumin 2.7 L TSH Free T4 Free T3 Urine Color Urine Clarity Urine pH Ur Specific Page Urine Protein Urine Glucose (UA) Urine Ketones Urine Occult Blood Urine Nitrate Urine Bilirubin Urine Urobilinogen Ur Leukocyte Esterase Urine RBC Urine WBC Urine WBC Clumps Amorphous Sediment Urine Bacteria Granular Casts Micro UA Comment Ur Microscopic Review Urine Culture Comments Microbiology 08/20/18 13:00 Blood - Peripheral Anaerobic Blood Culture - Preliminary gram negative rods 08/20/18 13:40 Nasal Wash Influenza Types A,B Antigen - Final Negative for FLU A and B antigen Infection due to influenza A or B cannot be ruled out since the antigen present in the sample may be below the detection limit of the test. - Imaging Impressions Chest X-Ray 08/20/18 13:05 CONCLUSION: Minimal elevation right hemidiaphragm without obvious infiltrate. Head CT 08/20/18 13:05 CONCLUSION: 1. Negative noncontrast head CT with motion artifact. . Abdomen/Pelvis CT 08/20/18 14:51 CONCLUSION: 1. Nonspecific bowel gas pattern which may represent an ileus or gastroenteritis. 2. No evidence of primary tumor or adenopathy. Assessment and Plan - Plan 57-year-old female with Bacteremia 1 blood culture positive GNR Repeat blood culture 08/21/18 Consult infectious disease specialist 08/21/18 Continue with Rocephin Sepsis: Elevated HR,WBC>11,000 and source of infection (UTI) Status post Rocephin IV x1 in ED, continue antibiotics pending urine and blood culture Urinary tract infection Currently on IV Rocephin daily pending culture report Metabolic encephalopathy-improving From above infectious process, treat as an above Acute renal injury Renal indices improving With IV fluid hydration and monitor BUN and creatinine Questionable ileus per CT abdomen check Flat and upright and treat accordingly 08/21/18 History of hypertension, hypothyroid, schizophrenia and other chronic medical conditions Outpatient medications DVT prophylaxis: Bilateral SCDs
--- NOTE | 2018-08-21 14:47 | XR ---
EXAM DATE: 08/21/2018 2:01 PM EST AGE/SEX: 57 years / Female INDICATIONS: Ileus, abdomen pain. CLINICAL DATA: This is the patient's subsequent encounter. Patient reports that signs and symptoms h ave been present for 3 days and indicates a pain score of 9/10. MEDICAL/SURGICAL HISTORY: Hypertension. Hyperthyroidism. Schizophrenia Angioplasty. COMPARISON: None . FINDINGS: Supine and upright views of the abdomen were performed. Gas and stool is noted segmentally in the col on. There are several loops of nondilated air-containing small bowel. There are several small air-flu id levels on the erect film.. No abnormal masses, calcifications, or organomegaly is seen. The visual ized lower lungs are clear. No evidence of free intraperitoneal gas. The osseous structures are unrem arkable. CONCLUSION: Mildly nonspecific, nonobstructive bowel gas pattern most characteristic of a mild ileus and/or gastr oenteritis. Electronically signed by: Estevan Villalba MD 08/21/2018 2:46 PM EST
--- NOTE | 2018-08-21 16:09 | MB ---
cc: Jung Macias MD DATE: 08/21/2018 REQUESTING PHYSICIAN: Dr. Martinez. REASON: A 57-year-old admitted with sepsis, UTI; now with bacteremia. HISTORY OF PRESENT ILLNESS: This is a 57-year-old white female who presented to the emergency department yesterday with altered mental status. The patient's notes that she has been in bed 3 days prior to coming to the emergency department. She noticed that her mental status was altered and he brought her to the hospital. He states that just before he brought her the hospital, she fell at home, but she did not injure herself. The patient notes that she has had burning on urination and pain on the left lower back and also frequent urination over the past week. The states that she had not been eating for the 3 days before he brought her to the emergency department. Blood culture has Escherichia coli and urine culture has gram-negative rods. Influenza test is negative. The patient is currently on IV antibiotics with ceftriaxone. On admission her temperature was 102, a white blood cell count was 13.5 yesterday. The patient's estimated GFR is 27; yesterdays estimated GFR was 21. Prior GFR measured on 06/06/2017 was 57. She tells me that she feels a little better. She is somewhat slow finding words, but denies headache. She has some nausea and states that whenever she eats she gets some nausea and she also notes that she is passing some gas. PAST MEDICAL HISTORY: Hypothyroidism, schizophrenia. ALLERGIES: SULFAMETHOXAZOLE, TRIMETHOPRIM, TOMATOES, WOOL. MEDICATIONS: 1. Ceftriaxone. 2. Cogentin. 3. Tylenol. 4. Catapres. 5. Vasotec. 6. Neurontin. 7. Synthroid. 8. Lopressor. 9. Zyprexa. 10. Protonix. SOCIAL HISTORY: The patient is . Positive tobacco. No illicit drugs. No alcohol. FAMILY HISTORY: Noncontributory. REVIEW OF SYSTEMS: All systems have been reviewed and are negative, except for features mentioned in history of present illness. PHYSICAL EXAMINATION: GENERAL: This is a well-developed female who is in no acute distress. She appears somewhat chronically ill. VITAL SIGNS: Includes temperature 98.2, BP 140/86, respirations 18, heart rate 72. HEENT: Head is atraumatic. Extraocular movements are grossly intact. Pupils reactive to light. No icterus. Oropharynx moist mucosa without lesions. NECK: Supple. No adenopathy or swelling. LUNGS: Clear to auscultation. HEART: Regular S1, S2, without murmurs, rubs or gallops. ABDOMEN: Bowel sounds present. mildly distended, decreased bowel sounds. No tenderness. No masses palpable. BACK: Mild tenderness at the right posterior lower back. No erythema. RECTAL: Not performed. EXTREMITIES: No clubbing, cyanosis or edema. SKIN: No rash. NEUROLOGIC: No gross focal finding. PSYCHIATRIC: Patient is calm and cooperative and her affect appears normal. LABORATORY DATA: WBC 12.6, platelets 199, 80% neutrophils. Creatinine 1.89, estimated GFR 27, sodium 141. Liver function tests normal. IMPRESSION: 1. Sepsis due to Escherichia coli. 2. Urinary tract infection due to Escherichia coli. 3. Acute kidney disease. 4. Altered mental status secondary to sepsis; appears to be improving. RECOMMENDATIONS: 1. Continue ceftriaxone. 2. Monitor the ID and sensitivity of the gram-negative riddhi in the urine. 3. Monitor the sensitivity of the Escherichia coli in the blood. 4. Monitor temperature. 5. Monitor white blood cell count. 6. Monitor clinical status. Thank you for this consultation. The patient's progress will be monitored and further recommendations will be given upon followup if necessary. MD CHRISTY Lezama/courtney , 03:40 PM , 03:50 PM
[2018-08-22] MEDS: Sod Chloride 0.9% Inj 1,000 ML IV.CONT SCH ×2 (02:09→15:19)
[2018-08-22] MEDS: Levothyroxine 88 MCG Tablet PO SCH (05:17)
[2018-08-22 06:02] LABS: Hematocrit 30.5 % (35.0-46.0); Hemoglobin 10.2 gm/dL (11.6-15.3); Mean Corpuscular HGB Conc 33.4 % (32.0-36.0); Mean Corpuscular Hemoglobin 27.8 pg (27.0-34.0); Mean Corpuscular Volume 83.2 fL (80.0-100.0); Mean Platelet Volume 9.7 fL (7.0-11.0); Platelet Count 208 th/mm3 (150-450); Red Blood Count 3.67 mil/mm3 (4.00-5.30); Red Cell Distribution Width 14.3 % (11.6-17.2); White Blood Count 8.9 th/mm3 (4.0-11.0)
[2018-08-22 06:33] LABS: Alanine Aminotransferase 22 U/L (10-53); Albumin 2.4 g/dL (3.4-5.0); Anion Gap 10 meq/L (5-15); Aspartate Aminotransferase 25 U/L (15-37); Blood Urea Nitrogen 29 mg/dL (7-18); Calcium 8.2 mg/dL (8.5-10.1); Carbon Dioxide 18.9 meq/L (21.0-32.0); Chloride 114 meq/L (98-107); Glomerular Filtration Rate 32 mL/min (>89); Glucose,Random 88 mg/dL (74-106); Potassium 3.4 meq/L (3.5-5.1); Sodium 143 meq/L (136-145)
[2018-08-22 06:35] LABS: Alkaline Phosphatase 74 U/L (45-117); Total Protein 6.7 g/dL (6.4-8.2)
[2018-08-22 06:57] LABS: Eosinophils 1 % (0-4); Lymphocytes 14 % (9-44); Monocytes 7 % (0-8)
[2018-08-22 06:58] LABS: Platelet Estimate Normal (Normal); Platelet Morphology Normal (Normal)
[2018-08-22] MEDS: Gabapentin 300 MG Capsule PO SCH (09:31)
[2018-08-22] MEDS: Metoprolol Tartrate 25 MG Tablet PO SCH ×2 (09:31→20:49)
[2018-08-22] MEDS: Pantoprazole Sodium 20 MG DR Tablet PO SCH (09:31)
[2018-08-22] MEDS: OLANZapine 15 MG Tablet PO SCH (09:31)
--- NOTE | 2018-08-22 10:48 | P.PN ---
Subjective Interval history: Follow-up sepsis/UTI and bacteremia August 21, 2018-patient seen and examined, plan of emesis, nausea and had episode of diarrhea overnight. Mentation improved this morning. Renal indices improving. August 22, 2018-patient seen and examined, alert and oriented x3, afebrile, denies any emesis. Physical Exam Vital signs: Vital Signs 08/21/18 12:00 08/21/18 16:00 08/21/18 20:00 Temperature 98.2 F 98.7 F 98.0 F Pulse Rate 72 79 86 Respiratory Rate 18 17 17 Blood Pressure 148/86 H 137/77 161/81 H Pulse Oximetry 98 96 97 08/22/18 00:00 08/22/18 08:00 Temperature 97.9 F 98.0 F Pulse Rate 84 80 Respiratory Rate 18 19 Blood Pressure 149/78 H 162/93 H Pulse Oximetry 95 94 L Intake & Output 08/21/18 08/22/18 08/22/18 18:59 06:59 18:59 Intake Total 1400 / 1400 1900 / 1900 Balance 1400 / 1400 1900 / 1900 Weight 74.4 kg Intake: IV 100 / 100 1000 / 1000 NS Inj 1,000 ML @ 70 mls/hr IV. 1000 / 1000 CONT .[id number] NANCY Rx#:[id number] Rocephin Inj 1,000 MG In NS Inj 100 / 100 100 ML @ 200 mls/hr IV.SIG Q24H NANCY Rx#:[id number] Oral 1300 / 1300 900 / 900 Other: # Voids 4 3 Date of Last Bowel Movement 08/21/18 # Bowel Movements 0 Narrative: GENERAL: NAD SKIN: Warm and dry. HEAD: Atraumatic. Normocephalic. EYES: Pupils equal and round. No scleral icterus. No injection or drainage. ENT: No nasal bleeding or discharge. Mucous membranes pink and moist. NECK: Trachea midline. No JVD. CARDIOVASCULAR: Regular rate and rhythm. RESPIRATORY: No accessory muscle use. Clear to auscultation. Breath sounds equal bilaterally. GASTROINTESTINAL: Abdomen soft, non-tender, nondistended. Hepatic and splenic margins not palpable. MUSCULOSKELETAL: Extremities without clubbing, cyanosis, or edema. No obvious deformities. NEUROLOGICAL: Awake and alert. No obvious cranial nerve deficits. Motor grossly within normal limits. Five out of 5 muscle strength in the arms and legs. Normal speech. PSYCHIATRIC: Appropriate mood and affect; insight and judgment normal. Results - Labs CBC & Chem 7: 08/22/18 04:13 08/22/18 04:13 Laboratory Results - last 24 hr 08/20/18 08/22/18 08/22/18 13:40 04:13 04:13 WBC 8.9 RBC 3.67 L Hgb 10.2 L Hct 30.5 L MCV 83.2 MCH 27.8 MCHC 33.4 RDW 14.3 Plt Count 208 MPV 9.7 Prelim Diff (Auto) Manual diff required WBC Differential Manual diff final Seg Neuts % (Manual) 52 Band Neuts % (Manual) 26 H Lymphocytes % (Manual) 14 Monocytes % (Manual) 7 Eosinophils % (Manual) 1 Abs Neuts (Manual) 6.9 Differential Comment . Platelet Estimate Normal Platelet Morphology Normal Sodium 143 Potassium 3.4 L Chloride 114 H Carbon Dioxide 18.9 L Anion Gap 10 BUN 29 H Creatinine 1.63 H Estimated GFR 32 L Random Glucose 88 Calcium 8.2 L Total Bilirubin 0.2 AST 25 ALT 22 Alkaline Phosphatase 74 Total Protein 6.7 Albumin 2.4 L Urine Color Sheila Urine Clarity Turbid H Urine pH 5.0 Ur Specific [place] 1.015 Urine Protein 100 H Urine Glucose (UA) Negative Urine Ketones Negative Urine Occult Blood Small H Urine Nitrate Negative Urine Bilirubin Negative Urine Urobilinogen 2.0 H Ur Leukocyte Esterase Large H Urine RBC 6 H Urine WBC Urine WBC Clumps Many H Amorphous Sediment Rare H Urine Bacteria Many H Granular Casts 47 Micro UA Comment Cath-culture ind Urine Culture Comments Cath-cult indicated Microbiology 08/20/18 13:40 Catheterized Urine Urine Culture - Final Escherichia coli 08/20/18 13:00 Blood - Peripheral Aerobic Blood Culture - Preliminary No growth in 1 day 08/20/18 13:00 Blood - Peripheral Anaerobic Blood Culture - Preliminary Escherichia coli 08/20/18 13:27 Blood - Peripheral Aerobic Blood Culture - Preliminary No growth in 1 day 08/20/18 13:27 Blood - Peripheral Anaerobic Blood Culture - Preliminary No growth in 1 day - Imaging Impressions Abdomen X-Ray 08/21/18 00:00 CONCLUSION: Mildly nonspecific, nonobstructive bowel gas pattern most characteristic of a mild ileus and/or gastroenteritis. - Procedures None Assessment and Plan - Plan 57-year-old female with Bacteremia 1 blood culture positive GNR Repeat blood culture 08/21/18 Appreciate input from infectious disease specialist 08/21/18 Continue with Rocephin Sepsis: Elevated HR,WBC>11,000 and source of infection (UTI) Status post Rocephin IV x1 in ED, continue antibiotics pending urine and blood culture Urinary tract infection-E. coli and pansensitive Currently on IV Rocephin daily Metabolic encephalopathy-improved From above infectious process, treat as an above Acute renal injury Renal indices improving With IV fluid hydration and monitor BUN and creatinine Questionable ileus per CT abdomen Flat and upright noted Labile benign hypertension Increase Lopressor to 25 mg p.o. twice daily Hypokalemia Give potassium 60 mEq x1 now and monitor BMP in a.m. History of hypertension, hypothyroid, schizophrenia and other chronic medical conditions Outpatient medications DVT prophylaxis: Bilateral SCDs Consult PT
--- NOTE | 2018-08-22 15:22 | XR ---
EXAM DATE: 08/22/2018 3:16 PM EST AGE/SEX: 57 years / Female INDICATIONS: Pneumonia. CLINICAL DATA: This is the patient's subsequent encounter. Patient reports that signs and symptoms h ave been present for 4 - 6 days and indicates a pain score of 0/10. MEDICAL/SURGICAL HISTORY: . Hypertension. Hyperthyroidism. Schizophrenia. . Angioplasty. COMPARISON: [facility] [place], CHEST 1V SINGLE AP, 08/20/2018. . FINDINGS: Left lung is clear. Minimal elevation is again seen in the right hemidiaphragm developing parenchymal changes right base. The heart and pulmonary vascularity are normal. The portion of the bony skeleton visualized is unremarkable. CONCLUSION: Probable consolidation developing right base. PA and lateral chest would be of benefit Electronically signed by: Cnoor Franco MD 08/22/2018 3:21 PM EST
--- NOTE | 2018-08-22 15:24 | P.PNID ---
Subjective Remarks: Patient having coughing spells. She notes that he has been coughing all morning. No sputum production. Sore throat. She denies chills. She states that she has pain in the head and also in the chest. Afebrile. 57-year-old white female who presented to the emergency department yesterday with altered mental status. Past Medical History: PAST MEDICAL HISTORY: Hypothyroidism, schizophrenia. Allergies/Adverse Reactions: Allergies sulfamethoxazole Allergy (Severe, Verified 08/20/18 14:02) Itching trimethoprim Allergy (Severe, Verified 08/20/18 14:02) Hives tomato Allergy (Intermediate, Verified 08/20/18 14:02) Hives wool Adverse Reaction (Intermediate, Uncoded 08/20/18 14:02) Hives Objective Vital Signs 08/21/18 16:00 08/21/18 20:00 08/22/18 00:00 Temperature 98.7 F 98.0 F 97.9 F Pulse Rate 79 86 84 Respiratory Rate 17 17 18 Blood Pressure 137/77 161/81 H 149/78 H Pulse Oximetry 96 97 95 08/22/18 08:00 08/22/18 12:00 Temperature 98.0 F 98.0 F Pulse Rate 80 81 Respiratory Rate 19 19 Blood Pressure 162/93 H 132/80 Pulse Oximetry 94 L 98 Intake & Output 08/21/18 08/22/18 08/22/18 18:59 06:59 18:59 Intake Total 1400 / 1400 1900 / 1900 100 / 100 Balance 1400 / 1400 1900 / 1900 100 / 100 Weight 74.4 kg Intake: IV 100 / 100 1000 / 1000 100 / 100 NS Inj 1,000 ML @ 70 mls/hr IV. 1000 / 1000 CONT .[id number] NANCY Rx#:[id number] Rocephin Inj 1,000 MG In NS Inj 100 / 100 100 / 100 100 ML @ 200 mls/hr IV.SIG Q24H NANCY Rx#:[id number] Oral 1300 / 1300 900 / 900 Other: # Voids 4 3 Date of Last Bowel Movement 08/21/18 # Bowel Movements 0 08/20/18 13:27 Blood - Peripheral Aerobic Blood Culture - Preliminary Escherichia coli 08/20/18 13:27 Blood - Peripheral Anaerobic Blood Culture - Preliminary No growth in 2 days 08/21/18 11:19 Blood - Peripheral Aerobic Blood Culture - Preliminary No growth in 1 day 08/21/18 11:19 Blood - Peripheral Anaerobic Blood Culture - Preliminary No growth in 1 day 08/21/18 11:11 Blood - Peripheral Aerobic Blood Culture - Preliminary No growth in 1 day 08/21/18 11:11 Blood - Peripheral Anaerobic Blood Culture - Preliminary No growth in 1 day 08/20/18 13:00 Blood - Peripheral Aerobic Blood Culture - Preliminary No growth in 2 days 08/20/18 13:00 Blood - Peripheral Anaerobic Blood Culture - Preliminary Escherichia coli 08/20/18 13:40 Catheterized Urine Urine Culture - Final Escherichia coli 08/20/18 13:40 Nasal Wash Influenza Types A,B Antigen - Final Negative for FLU A and B antigen Infection due to influenza A or B cannot be ruled out since the antigen present in the sample may be below the detection limit of the test. Lab - Hematology Results 08/21/18 08/22/18 04:30 04:13 WBC 12.6 H 8.9 RBC 3.69 L 3.67 L Hgb 10.2 L 10.2 L Hct 30.8 L 30.5 L MCV 83.4 83.2 MCH 27.7 27.8 MCHC 33.2 33.4 RDW 14.5 14.3 Plt Count 199 208 MPV 9.4 9.7 Prelim Diff (Auto) Manual diff required Neut % (Auto) 80.6 H Lymph % (Auto) 7.3 L [place] % (Auto) 11.8 H Eos % (Auto) 0.1 Baso % (Auto) 0.2 Neut # (Auto) 10.1 H Lymph # (Auto) 0.9 L [place] # (Auto) 1.5 H Eos # (Auto) 0.0 Baso # (Auto) 0.0 WBC Differential . Manual diff final Seg Neuts % (Manual) 52 Band Neuts % (Manual) 26 H Lymphocytes % (Manual) 14 Monocytes % (Manual) 7 Eosinophils % (Manual) 1 Abs Neuts (Manual) 6.9 Differential Comment Auto diff final . Platelet Estimate Normal Platelet Morphology Normal Lab - Chemistry Results 08/21/18 08/22/18 04:50 04:13 Sodium 141 143 Potassium 3.7 3.4 L Chloride 112 H D 114 H Carbon Dioxide 17.5 L 18.9 L Anion Gap 12 10 BUN 36 H 29 H Creatinine 1.89 H 1.63 H Estimated GFR 27 L 32 L Random Glucose 122 H 88 Calcium 8.5 8.2 L Total Bilirubin 0.4 0.2 AST 27 25 ALT 21 22 Alkaline Phosphatase 85 74 Total Protein 7.1 D 6.7 Albumin 2.7 L 2.4 L Imaging: ITS Impressions Chest X-Ray 08/20/18 13:05 CONCLUSION: Minimal elevation right hemidiaphragm without obvious infiltrate. Head CT 08/20/18 13:05 CONCLUSION: 1. Negative noncontrast head CT with motion artifact. . Abdomen/Pelvis CT 08/20/18 14:51 CONCLUSION: 1. Nonspecific bowel gas pattern which may represent an ileus or gastroenteritis. 2. No evidence of primary tumor or adenopathy. Abdomen X-Ray 08/21/18 00:00 CONCLUSION: Mildly nonspecific, nonobstructive bowel gas pattern most characteristic of a mild ileus and/or gastroenteritis. Physical Exam: PHYSICAL EXAMINATION: GENERAL: Patient is in mild distress because of coughing. Awake and alert. HEENT: Head is atraumatic. Extraocular movements are grossly intact. Pupils reactive to light. No icterus. Oropharynx moist mucosa without lesions. NECK: Supple. No adenopathy or swelling. LUNGS: Bilateral rhonchi. HEART: Regular S1, S2, without murmurs, rubs or gallops. ABDOMEN: Bowel sounds present. mildly distended, decreased bowel sounds. No tenderness. No masses palpable. BACK: Mild tenderness at the right posterior lower back. No erythema. EXTREMITIES: No clubbing, cyanosis or edema. SKIN: No rash. NEUROLOGIC: No gross focal finding. PSYCHIATRIC: Calm and cooperative. Assessment and Plan - Plan IMPRESSION: 1. Sepsis due to Escherichia coli. 2. Urinary tract infection due to Escherichia coli. 3. Acute kidney disease. Patient with component of chronic kidney disease. May also have had worsening of kidney function from dehydration. 4. Altered mental status secondary to sepsis; appears to be improving. 5. Cough. Rule out pneumonia. RECOMMENDATIONS: 1. Continue ceftriaxone. 2. Chest x-ray to evaluate for pneumonia. 3. Monitor temperature4. 4. Monitor clinical status.
[2018-08-23] MEDS: Sod Chloride 0.9% Inj 1,000 ML IV.CONT SCH ×2 (06:30→18:21)
[2018-08-23] MEDS: Levothyroxine 88 MCG Tablet PO SCH (06:30)
[2018-08-23 07:32] LABS: Alanine Aminotransferase 23 U/L (10-53); Albumin 2.1 g/dL (3.4-5.0); Anion Gap 8 meq/L (5-15); Aspartate Aminotransferase 28 U/L (15-37); Blood Urea Nitrogen 19 mg/dL (7-18); Calcium 8.3 mg/dL (8.5-10.1); Carbon Dioxide 19.2 meq/L (21.0-32.0); Chloride 119 meq/L (98-107); Glomerular Filtration Rate 39 mL/min (>89); Glucose,Random 97 mg/dL (74-106); Potassium 3.8 meq/L (3.5-5.1); Sodium 146 meq/L (136-145)
[2018-08-23 07:41] LABS: Alkaline Phosphatase 67 U/L (45-117)
--- NOTE | 2018-08-23 09:08 | P.PN ---
Subjective Interval history: Follow-up sepsis/UTI and bacteremia August 21, 2018-patient seen and examined, plan of emesis, nausea and had episode of diarrhea overnight. Mentation improved this morning. Renal indices improving. August 22, 2018-patient seen and examined, alert and oriented x3, afebrile, denies any emesis. August 23, 2018-patient seen and examined, complains of shortness of breath. Afebrile. Physical Exam Vital signs: Vital Signs 08/22/18 12:00 08/22/18 16:00 08/22/18 20:00 Temperature 98.0 F 97.6 F 99.3 F Pulse Rate 81 75 74 Respiratory Rate 19 19 18 Blood Pressure 132/80 180/101 H 140/88 Pulse Oximetry 98 96 96 08/23/18 00:00 08/23/18 08:48 Temperature 98.7 F Pulse Rate 68 63 Respiratory Rate 18 16 Blood Pressure 122/63 Pulse Oximetry 97 Intake & Output 08/22/18 08/23/18 08/23/18 18:59 06:59 18:59 Intake Total 1520 / 1520 1200 / 1200 Output Total 350 / 350 Balance 1520 / 1520 850 / 850 Weight 70.3 kg Intake: IV 800 / 800 1000 / 1000 NS Inj 1,000 ML @ 100 mls/hr IV 700 / 700 1000 / 1000 .CONT .Q10H NANCY Rx#:[id number] Rocephin Inj 1,000 MG In NS Inj 100 / 100 100 ML @ 200 mls/hr IV.SIG Q24H NANCY Rx#:[id number] Oral 720 / 720 200 / 200 Output: Urine 350 / 350 Other: # Voids 3 Narrative: GENERAL: NAD SKIN: Warm and dry. HEAD: Atraumatic. Normocephalic. EYES: Pupils equal and round. No scleral icterus. No injection or drainage. ENT: No nasal bleeding or discharge. Mucous membranes pink and moist. NECK: Trachea midline. No JVD. CARDIOVASCULAR: Regular rate and rhythm. RESPIRATORY: No accessory muscle use. Clear to auscultation. Breath sounds equal bilaterally. GASTROINTESTINAL: Abdomen soft, non-tender, nondistended. Hepatic and splenic margins not palpable. MUSCULOSKELETAL: Extremities without clubbing, cyanosis, or edema. No obvious deformities. NEUROLOGICAL: Awake and alert. No obvious cranial nerve deficits. Motor grossly within normal limits. Five out of 5 muscle strength in the arms and legs. Normal speech. PSYCHIATRIC: Appropriate mood and affect; insight and judgment normal. Results - Labs CBC & Chem 7: 08/22/18 04:13 08/23/18 05:26 Laboratory Results - last 24 hr 08/23/18 05:26 Sodium 146 H Potassium 3.8 Chloride 119 H Carbon Dioxide 19.2 L Anion Gap 8 BUN 19 H Creatinine 1.39 H Estimated GFR 39 L Random Glucose 97 Calcium 8.3 L Total Bilirubin 0.2 AST 28 ALT 23 Alkaline Phosphatase 67 Total Protein 6.0 L D Albumin 2.1 L Microbiology 08/20/18 13:27 Blood - Peripheral Aerobic Blood Culture - Preliminary Escherichia coli 08/20/18 13:27 Blood - Peripheral Anaerobic Blood Culture - Preliminary No growth in 2 days 08/21/18 11:19 Blood - Peripheral Aerobic Blood Culture - Preliminary No growth in 1 day 08/21/18 11:19 Blood - Peripheral Anaerobic Blood Culture - Preliminary No growth in 1 day 08/21/18 11:11 Blood - Peripheral Aerobic Blood Culture - Preliminary No growth in 1 day 08/21/18 11:11 Blood - Peripheral Anaerobic Blood Culture - Preliminary No growth in 1 day 08/20/18 13:00 Blood - Peripheral Aerobic Blood Culture - Preliminary No growth in 2 days 08/20/18 13:00 Blood - Peripheral Anaerobic Blood Culture - Preliminary Escherichia coli 08/20/18 13:40 Catheterized Urine Urine Culture - Final Escherichia coli - Imaging Impressions Chest X-Ray 08/22/18 14:53 CONCLUSION: Probable consolidation developing right base. PA and lateral chest would be of benefit - Procedures None Assessment and Plan - Plan 57-year-old female with Bacteremia blood cultures positive GNR Repeat blood culture 08/21/18 Appreciate input from infectious disease specialist 08/21/18 Continue with Rocephin Sepsis: Elevated HR,WBC>11,000 and source of infection (UTI)-resolved Status post Rocephin IV x1 in ED, continue antibiotics pending urine and blood culture Urinary tract infection-E. coli and pansensitive Currently on IV Rocephin daily Metabolic encephalopathy-improved From above infectious process, treat as an above Acute renal injury on CKD stage III Renal indices improving With IV fluid hydration and monitor BUN and creatinine Questionable ileus per CT abdomen Flat and upright noted Labile benign hypertension Continue with Lopressor 25 mg p.o. twice daily Hypokalemia Resolved s/p replacement History of hypothyroid, schizophrenia and other chronic medical conditions Outpatient medications DVT prophylaxis: Bilateral SCDs Consult PT
[2018-08-23] MEDS: OLANZapine 15 MG Tablet PO SCH (09:11)
[2018-08-23] MEDS: Gabapentin 300 MG Capsule PO SCH (09:11)
[2018-08-23] MEDS: Metoprolol Tartrate 25 MG Tablet PO SCH ×2 (09:11→20:50)
[2018-08-23] MEDS: Pantoprazole Sodium 20 MG DR Tablet PO SCH (09:11)
--- NOTE | 2018-08-23 17:18 | P.PNID ---
Subjective Remarks: Patient says she feels better. No longer having coughing spells. Chest x-ray shows no acute infiltrate. Afebrile. Repeat blood culture is negative for 2 days. 57-year-old white female who presented to the emergency department yesterday with altered mental status. Past Medical History: PAST MEDICAL HISTORY: Hypothyroidism, schizophrenia. Allergies/Adverse Reactions: Allergies sulfamethoxazole Allergy (Severe, Verified 08/20/18 14:02) Itching trimethoprim Allergy (Severe, Verified 08/20/18 14:02) Hives tomato Allergy (Intermediate, Verified 08/20/18 14:02) Hives wool Adverse Reaction (Intermediate, Uncoded 08/20/18 14:02) Hives Objective Vital Signs 08/22/18 20:00 08/23/18 00:00 08/23/18 08:00 Temperature 99.3 F 98.7 F 97.8 F Pulse Rate 74 68 68 Respiratory Rate 18 18 18 Blood Pressure 140/88 122/63 146/82 H Pulse Oximetry 96 97 97 08/23/18 08:48 08/23/18 12:00 Temperature 97.7 F Pulse Rate 63 61 Respiratory Rate 16 17 Blood Pressure 127/77 Pulse Oximetry 98 Intake & Output 08/22/18 08/23/18 08/23/18 18:59 06:59 18:59 Intake Total 1520 / 1520 1200 / 1200 100 / 100 Output Total 350 / 350 Balance 1520 / 1520 850 / 850 100 / 100 Weight 70.3 kg Intake: IV 800 / 800 1000 / 1000 100 / 100 NS Inj 1,000 ML @ 100 mls/hr IV 700 / 700 1000 / 1000 .CONT .Q10H NANCY Rx#:[id number] Rocephin Inj 1,000 MG In NS Inj 100 / 100 100 / 100 100 ML @ 200 mls/hr IV.SIG Q24H NANCY Rx#:[id number] Oral 720 / 720 200 / 200 Output: Urine 350 / 350 Other: # Voids 3 08/21/18 11:19 Blood - Peripheral Aerobic Blood Culture - Preliminary No growth in 2 days 08/21/18 11:19 Blood - Peripheral Anaerobic Blood Culture - Preliminary No growth in 2 days 08/21/18 11:11 Blood - Peripheral Aerobic Blood Culture - Preliminary No growth in 2 days 08/21/18 11:11 Blood - Peripheral Anaerobic Blood Culture - Preliminary No growth in 2 days 08/20/18 13:27 Blood - Peripheral Aerobic Blood Culture - Final Escherichia coli 08/20/18 13:27 Blood - Peripheral Anaerobic Blood Culture - Preliminary No growth in 3 days 08/20/18 13:00 Blood - Peripheral Aerobic Blood Culture - Preliminary No growth in 3 days 08/20/18 13:00 Blood - Peripheral Anaerobic Blood Culture - Final Escherichia coli 08/20/18 13:40 Catheterized Urine Urine Culture - Final Escherichia coli 08/20/18 13:40 Nasal Wash Influenza Types A,B Antigen - Final Negative for FLU A and B antigen Infection due to influenza A or B cannot be ruled out since the antigen present in the sample may be below the detection limit of the test. Lab - Hematology Results 08/22/18 04:13 WBC 8.9 RBC 3.67 L Hgb 10.2 L Hct 30.5 L MCV 83.2 MCH 27.8 MCHC 33.4 RDW 14.3 Plt Count 208 MPV 9.7 Prelim Diff (Auto) Manual diff required WBC Differential Manual diff final Seg Neuts % (Manual) 52 Band Neuts % (Manual) 26 H Lymphocytes % (Manual) 14 Monocytes % (Manual) 7 Eosinophils % (Manual) 1 Abs Neuts (Manual) 6.9 Differential Comment . Platelet Estimate Normal Platelet Morphology Normal Lab - Chemistry Results 08/22/18 08/23/18 04:13 05:26 Sodium 143 146 H Potassium 3.4 L 3.8 Chloride 114 H 119 H Carbon Dioxide 18.9 L 19.2 L Anion Gap 10 8 BUN 29 H 19 H Creatinine 1.63 H 1.39 H Estimated GFR 32 L 39 L Random Glucose 88 97 Calcium 8.2 L 8.3 L Total Bilirubin 0.2 0.2 AST 25 28 ALT 22 23 Alkaline Phosphatase 74 67 Total Protein 6.7 6.0 L D Albumin 2.4 L 2.1 L Imaging: ITS Impressions Head CT 08/20/18 13:05 CONCLUSION: 1. Negative noncontrast head CT with motion artifact. . Abdomen/Pelvis CT 08/20/18 14:51 CONCLUSION: 1. Nonspecific bowel gas pattern which may represent an ileus or gastroenteritis. 2. No evidence of primary tumor or adenopathy. Abdomen X-Ray 08/21/18 00:00 CONCLUSION: Mildly nonspecific, nonobstructive bowel gas pattern most characteristic of a mild ileus and/or gastroenteritis. Chest X-Ray 08/22/18 14:53 CONCLUSION: Probable consolidation developing right base. PA and lateral chest would be of benefit Physical Exam: PHYSICAL EXAMINATION: GENERAL: Patient is in mild distress because of coughing. Awake and alert. HEENT: Head is atraumatic. Extraocular movements are grossly intact. Pupils reactive to light. No icterus. Oropharynx moist mucosa without lesions. NECK: Supple. No adenopathy or swelling. LUNGS: Slight rhonchi at the right base. HEART: Regular S1, S2, without murmurs, rubs or gallops. ABDOMEN: Bowel sounds present. mildly distended, decreased bowel sounds. No tenderness. No masses palpable. BACK: Mild tenderness at the right posterior lower back. No erythema. EXTREMITIES: No clubbing, cyanosis or edema. SKIN: No rash. NEUROLOGIC: No gross focal finding. PSYCHIATRIC: Calm and cooperative. Assessment and Plan - Plan IMPRESSION: 1. Sepsis due to Escherichia coli. 2. Urinary tract infection due to Escherichia coli. 3. Acute kidney disease. Patient with component of chronic kidney disease. May also have had worsening of kidney function from dehydration. 4. Altered mental status secondary to sepsis; appears to be improving. 5. Cough. Chest x-ray read as probable developing right base infiltrate. RECOMMENDATIONS: Continue ceftriaxone until 08/30/18 if the repeat blood cultures remain negative. I will sign off now.
[2018-08-24] MEDS: Levothyroxine 88 MCG Tablet PO SCH (06:11)
[2018-08-24 06:31] LABS: Anion Gap 10 meq/L (5-15); Aspartate Aminotransferase 22 U/L (15-37); Blood Urea Nitrogen 12 mg/dL (7-18); Calcium 7.9 mg/dL (8.5-10.1); Carbon Dioxide 19.6 meq/L (21.0-32.0); Chloride 116 meq/L (98-107); Glomerular Filtration Rate 42 mL/min (>89); Glucose,Random 113 mg/dL (74-106); Potassium 3.3 meq/L (3.5-5.1); Sodium 146 meq/L (136-145)
[2018-08-24 06:32] LABS: Alanine Aminotransferase 22 U/L (10-53)
[2018-08-24 06:34] LABS: Alkaline Phosphatase 63 U/L (45-117)
[2018-08-24] MEDS: OLANZapine 15 MG Tablet PO SCH (08:32)
[2018-08-24] MEDS: Gabapentin 300 MG Capsule PO SCH (08:32)
[2018-08-24] MEDS: Metoprolol Tartrate 25 MG Tablet PO SCH ×2 (08:33→21:31)
[2018-08-24] MEDS: Pantoprazole Sodium 20 MG DR Tablet PO SCH (08:33)
--- NOTE | 2018-08-24 10:17 | P.PN ---
Subjective Interval history: Follow-up sepsis/UTI and bacteremia August 21, 2018-patient seen and examined, plan of emesis, nausea and had episode of diarrhea overnight. Mentation improved this morning. Renal indices improving. August 22, 2018-patient seen and examined, alert and oriented x3, afebrile, denies any emesis. August 23, 2018-patient seen and examined, complains of shortness of breath. Afebrile. August 24, 2018-patient seen and examined, remains stable and has no complaint however not much of an appetite this a.m. Physical Exam Vital signs: Vital Signs 08/23/18 12:00 08/23/18 16:00 08/23/18 18:57 Temperature 97.7 F 98.0 F Pulse Rate 61 58 L 88 Respiratory Rate 17 18 22 Blood Pressure 127/77 156/89 H Pulse Oximetry 98 98 08/23/18 20:00 08/24/18 00:00 08/24/18 05:52 Temperature 98.5 F 97.6 F Pulse Rate 87 73 68 Respiratory Rate 18 18 20 Blood Pressure 124/69 110/63 Pulse Oximetry 98 98 08/24/18 08:00 Temperature 98.2 F Pulse Rate 75 Respiratory Rate 18 Blood Pressure 140/76 Pulse Oximetry 97 Intake & Output 08/23/18 08/24/18 08/24/18 18:59 06:59 18:59 Intake Total 850 / 850 490 / 490 Output Total 600 / 600 Balance 850 / 850 -110 / -110 Weight 73.4 kg Intake: IV 850 / 850 250 / 250 NS Inj 1,000 ML @ 40 mls/hr IV. 750 / 750 250 / 250 CONT .Q24H NANCY Rx#:[id number] Rocephin Inj 1,000 MG In NS Inj 100 / 100 100 ML @ 200 mls/hr IV.SIG Q24H NANCY Rx#:[id number] Oral 240 / 240 Output: Urine 600 / 600 Narrative: GENERAL: NAD SKIN: Warm and dry. HEAD: Atraumatic. Normocephalic. EYES: Pupils equal and round. No scleral icterus. No injection or drainage. ENT: No nasal bleeding or discharge. Mucous membranes pink and moist. NECK: Trachea midline. No JVD. CARDIOVASCULAR: Regular rate and rhythm. RESPIRATORY: No accessory muscle use. Clear to auscultation. Breath sounds equal bilaterally. GASTROINTESTINAL: Abdomen soft, non-tender, nondistended. Hepatic and splenic margins not palpable. MUSCULOSKELETAL: Extremities without clubbing, cyanosis, or edema. No obvious deformities. NEUROLOGICAL: Awake and alert. No obvious cranial nerve deficits. Motor grossly within normal limits. Five out of 5 muscle strength in the arms and legs. Normal speech. PSYCHIATRIC: Appropriate mood and affect; insight and judgment normal. Results - Labs CBC & Chem 7: 08/22/18 04:13 08/24/18 05:09 Laboratory Results - last 24 hr 08/24/18 05:09 Sodium 146 H Potassium 3.3 L Chloride 116 H Carbon Dioxide 19.6 L Anion Gap 10 BUN 12 Creatinine 1.29 H Estimated GFR 42 L Random Glucose 113 H Calcium 7.9 L Total Bilirubin 0.1 L AST 22 ALT 22 Alkaline Phosphatase 63 Total Protein 6.0 L Albumin 2.0 L Microbiology 08/21/18 11:19 Blood - Peripheral Aerobic Blood Culture - Preliminary No growth in 2 days 08/21/18 11:19 Blood - Peripheral Anaerobic Blood Culture - Preliminary No growth in 2 days 08/21/18 11:11 Blood - Peripheral Aerobic Blood Culture - Preliminary No growth in 2 days 08/21/18 11:11 Blood - Peripheral Anaerobic Blood Culture - Preliminary No growth in 2 days 08/20/18 13:27 Blood - Peripheral Aerobic Blood Culture - Final Escherichia coli 08/20/18 13:27 Blood - Peripheral Anaerobic Blood Culture - Preliminary No growth in 3 days 08/20/18 13:00 Blood - Peripheral Aerobic Blood Culture - Preliminary No growth in 3 days 08/20/18 13:00 Blood - Peripheral Anaerobic Blood Culture - Final Escherichia coli - Procedures None Assessment and Plan - Plan 57-year-old female with Bacteremia blood cultures positive GNR Repeat blood culture 08/21/18 Appreciate input from infectious disease specialist 08/21/18, however ID signed off August 23, 2018 Continue with Rocephin until August 30, 2018, unless repeat blood culture positive Sepsis: Elevated HR,WBC>11,000 and source of infection (UTI)-resolved Status post Rocephin IV x1 in ED, continue IV antibiotics Urinary tract infection-E. coli and pansensitive Currently on IV Rocephin daily until August 30, 2018 Metabolic encephalopathy-improved From above infectious process, treat as an above Acute renal injury on CKD stage III Renal indices improved with IV fluid hydration, will Hep-Lock Hypertension Continue with Lopressor 25 mg p.o. twice daily Hypokalemia Give potassium 60 mEq today and repeat CMP in a.m. History of hypothyroid, schizophrenia and other chronic medical conditions Outpatient medications DVT prophylaxis: Bilateral SCDs Global weakness Continue with daily PT
[2018-08-25] MEDS: Levothyroxine 88 MCG Tablet PO SCH (06:14)
[2018-08-25 08:07] LABS: Alanine Aminotransferase 17 U/L (10-53); Albumin 2.2 g/dL (3.4-5.0); Anion Gap 10 meq/L (5-15); Aspartate Aminotransferase 14 U/L (15-37); Blood Urea Nitrogen 5 mg/dL (7-18); Calcium 8.2 mg/dL (8.5-10.1); Carbon Dioxide 20.9 meq/L (21.0-32.0); Chloride 115 meq/L (98-107); Glomerular Filtration Rate 46 mL/min (>89); Glucose,Random 113 mg/dL (74-106); Potassium 3.4 meq/L (3.5-5.1); Sodium 146 meq/L (136-145)
[2018-08-25 08:09] LABS: Alkaline Phosphatase 61 U/L (45-117); Total Protein 6.2 g/dL (6.4-8.2)
--- NOTE | 2018-08-25 08:40 | P.PNIM ---
Subjective Interval history: Patient seen and examined this morning. Afebrile vital signs stable. Lying in bed comfortably. Understands that she is to continue antibiotics until August 30. No complaints or issues to report at this time. Physical Exam Vital signs: Vital Signs 08/24/18 12:00 08/24/18 16:00 08/24/18 20:00 Temperature 98.1 F 97.7 F 99.9 F H Pulse Rate 68 72 79 Respiratory Rate 17 18 17 Blood Pressure 156/75 H 158/84 H 170/72 H Pulse Oximetry 98 100 94 L 08/24/18 21:49 08/25/18 00:00 Temperature 98.9 F Pulse Rate 77 82 Respiratory Rate 16 17 Blood Pressure 131/85 Pulse Oximetry 95 Intake & Output 08/24/18 08/25/18 08/25/18 18:59 06:59 18:59 Intake Total 100 / 100 480 / 480 Balance 100 / 100 480 / 480 Weight 73 kg Intake: IV 100 / 100 Rocephin Inj 1,000 MG In NS Inj 100 / 100 100 ML @ 200 mls/hr IV.SIG Q24H NANCY Rx#:[id number] Oral 480 / 480 Other: # Voids 1,000 Date of Last Bowel Movement 08/21/18 Narrative: GENERAL: NAD SKIN: Warm and dry. HEAD: Atraumatic. Normocephalic. EYES: Pupils equal and round. No scleral icterus. No injection or drainage. ENT: No nasal bleeding or discharge. Mucous membranes pink and moist. NECK: Trachea midline. No JVD. CARDIOVASCULAR: Regular rate and rhythm. RESPIRATORY: No accessory muscle use. Clear to auscultation. Breath sounds equal bilaterally. GASTROINTESTINAL: Abdomen soft, non-tender, nondistended. Hepatic and splenic margins not palpable. MUSCULOSKELETAL: Extremities without clubbing, cyanosis, or edema. No obvious deformities. NEUROLOGICAL: Awake and alert. No obvious cranial nerve deficits. Motor grossly within normal limits. Five out of 5 muscle strength in the arms and legs. Normal speech. PSYCHIATRIC: Appropriate mood and affect; insight and judgment normal. Results - Labs CBC & Chem 7: 08/22/18 04:13 08/25/18 07:00 Laboratory Results - last 24 hr 08/25/18 07:00 Sodium 146 H Potassium 3.4 L Chloride 115 H Carbon Dioxide 20.9 L Anion Gap 10 BUN 5 L Creatinine 1.21 H Estimated GFR 46 L Random Glucose 113 H Calcium 8.2 L Total Bilirubin 0.2 AST 14 L ALT 17 Alkaline Phosphatase 61 Total Protein 6.2 L Albumin 2.2 L Microbiology 08/21/18 11:19 Blood - Peripheral Aerobic Blood Culture - Preliminary No growth in 3 days 08/21/18 11:19 Blood - Peripheral Anaerobic Blood Culture - Preliminary No growth in 3 days 08/21/18 11:11 Blood - Peripheral Aerobic Blood Culture - Preliminary No growth in 3 days 08/21/18 11:11 Blood - Peripheral Anaerobic Blood Culture - Preliminary No growth in 3 days 08/20/18 13:27 Blood - Peripheral Aerobic Blood Culture - Final Escherichia coli 08/20/18 13:27 Blood - Peripheral Anaerobic Blood Culture - Preliminary No growth in 4 days 08/20/18 13:00 Blood - Peripheral Aerobic Blood Culture - Preliminary No growth in 4 days 08/20/18 13:00 Blood - Peripheral Anaerobic Blood Culture - Final Escherichia coli - Procedures None Assessment and Plan - Assessment (1) Sepsis Code(s): A41.9 - Sepsis, unspecified organism Status: Acute (2) Acute UTI Code(s): N39.0 - Urinary tract infection, site not specified Status: Acute - Plan 57-year-old female with Bacteremia blood cultures positive GNR Repeat blood culture 08/21/18 Appreciate input from infectious disease specialist 08/21/18, however ID signed off August 23, 2018 Continue with Rocephin until August 30, 2018, unless repeat blood culture positive Sepsis: Elevated HR,WBC>11,000 and source of infection (UTI)-resolved Status post Rocephin IV x1 in ED, continue IV antibiotics Urinary tract infection-E. coli and pansensitive Currently on IV Rocephin daily until August 30, 2018 Metabolic encephalopathy-improved From above infectious process, treat as an above Acute renal injury on CKD stage III Renal indices improved with IV fluid hydration, will Hep-Lock Hypertension Continue with Lopressor 25 mg p.o. twice daily Hypokalemia Give potassium 60 mEq today and repeat CMP in a.m. History of hypothyroid, schizophrenia and other chronic medical conditions Outpatient medications DVT prophylaxis: Bilateral SCDs Global weakness Continue with daily PT Code Status: Full code Discharge Planning: Continuing antibiotics at this time
[2018-08-25] MEDS: Pantoprazole Sodium 20 MG DR Tablet PO SCH (09:22)
[2018-08-25] MEDS: Gabapentin 300 MG Capsule PO SCH (09:22)
[2018-08-25] MEDS: OLANZapine 15 MG Tablet PO SCH (09:22)
[2018-08-25] MEDS: Metoprolol Tartrate 25 MG Tablet PO SCH ×2 (09:23→20:15)
[2018-08-25] MEDS: Acetaminophen 325 MG Tablet PO PRN (09:32)
[2018-08-26] MEDS: Acetaminophen 325 MG Tablet PO PRN ×3 (04:06→22:20)
[2018-08-26] MEDS: Levothyroxine 88 MCG Tablet PO SCH (05:15)
[2018-08-26] MEDS: OLANZapine 15 MG Tablet PO SCH (08:33)
[2018-08-26] MEDS: Pantoprazole Sodium 20 MG DR Tablet PO SCH (08:34)
[2018-08-26] MEDS: Metoprolol Tartrate 25 MG Tablet PO SCH ×2 (08:34→19:59)
[2018-08-26] MEDS: Gabapentin 300 MG Capsule PO SCH (08:34)
[2018-08-26 09:35] LABS: Hemoglobin 9.2 gm/dL (11.6-15.3); Mean Corpuscular Hemoglobin 27.6 pg (27.0-34.0); Mean Corpuscular Volume 81.3 fL (80.0-100.0); Mean Platelet Volume 8.3 fL (7.0-11.0); Platelet Count 350 th/mm3 (150-450); Red Blood Count 3.33 mil/mm3 (4.00-5.30); Red Cell Distribution Width 14.3 % (11.6-17.2); White Blood Count 8.5 th/mm3 (4.0-11.0)
[2018-08-26 09:56] LABS: Albumin 2.3 g/dL (3.4-5.0); Anion Gap 9 meq/L (5-15); Aspartate Aminotransferase 9 U/L (15-37); Blood Urea Nitrogen 5 mg/dL (7-18); Calcium 8.7 mg/dL (8.5-10.1); Carbon Dioxide 23.8 meq/L (21.0-32.0); Chloride 112 meq/L (98-107); Glomerular Filtration Rate 54 mL/min (>89); Glucose,Random 86 mg/dL (74-106); Sodium 145 meq/L (136-145)
[2018-08-26 09:57] LABS: Alanine Aminotransferase 15 U/L (10-53)
[2018-08-26 10:00] LABS: Alkaline Phosphatase 64 U/L (45-117); Total Protein 6.5 g/dL (6.4-8.2)
--- NOTE | 2018-08-26 16:46 | US ---
EXAM DATE: 08/26/2018 4:40 PM EST AGE/SEX: 57 years / Female INDICATIONS: Bilateral leg pain. CLINICAL DATA: This is the patient's initial encounter. Patient reports that signs and symptoms have been present for 1 day and indicates a pain score of 0/10. MEDICAL/SURGICAL HISTORY: Hypothyroidism. Schizophrenia. None. COMPARISON: . TECHNIQUE: Venous ultrasound of both lower extremities was performed from the inguinal ligament to t he proximal calf. Real-time, color Doppler and spectral tracing, compression and augmentation techni ques were used. FINDINGS: Right Leg: Normal compression of the deep venous system from the inguinal region to the proximal darek f. No echogenic clot is seen. Normal response of the venous system to augmentation and respiration. Left Leg: Normal compression of the deep venous system from the inguinal region to the proximal calf . No echogenic clot is seen. Normal response of the venous system to augmentation and respiration. Other: None. CONCLUSION: 1. The study is negative for bilateral lower extremity deep venous thrombosis. Electronically signed by: Selvin Alicia MD Board Certified Radiologist 08/26/2018 4:45 PM EST
--- NOTE | 2018-08-26 18:32 | P.PNIM ---
Subjective Interval history: 57-year-old female who is being treated for bacteremia and UTI with Rocephin which is recommended to continue until August 30. She had no complaints during her visit but later on started complaining of right ankle pain. D-dimer was ordered showing an elevation at about 4.0. She complained of nonspecific dyspnea. Physical Exam Vital signs: Last Vital Signs Temp 97.9 F 08/26/18 16:00 Pulse 73 08/26/18 16:00 Resp 16 08/26/18 16:00 BP 129/77 08/26/18 16:00 Pulse Ox 98 08/26/18 16:00 Intake & Output 08/24/18 08/25/18 08/26/18 08/27/18 06:59 06:59 06:59 06:59 Intake Total 1340 / 1340 580 / 580 1420 / 1420 100 / 100 Output Total 600 / 600 Balance 740 / 740 580 / 580 1420 / 1420 100 / 100 Weight 73.4 kg 73 kg 71.4 kg Narrative: GENERAL: NAD SKIN: Warm and dry. HEAD: Atraumatic. Normocephalic. EYES: Pupils equal and round. No scleral icterus. No injection or drainage. ENT: No nasal bleeding or discharge. Mucous membranes pink and moist. NECK: Trachea midline. No JVD. CARDIOVASCULAR: Regular rate and rhythm. RESPIRATORY: No accessory muscle use. Clear to auscultation. Breath sounds equal bilaterally. GASTROINTESTINAL: Abdomen soft, non-tender, nondistended. Hepatic and splenic margins not palpable. MUSCULOSKELETAL: Extremities without clubbing, cyanosis, or edema. No obvious deformities. NEUROLOGICAL: Awake and alert. No obvious cranial nerve deficits. Motor grossly within normal limits. Five out of 5 muscle strength in the arms and legs. Normal speech. PSYCHIATRIC: Appropriate mood and affect; insight and judgment normal. Results Labs CBC & Chem 7: 08/26/18 08:42 08/26/18 08:42 Labs: Microbiology 08/21/18 11:19 Blood - Peripheral Aerobic Blood Culture - Final No growth in 5 days 08/21/18 11:19 Blood - Peripheral Anaerobic Blood Culture - Final No growth in 5 days 08/21/18 11:11 Blood - Peripheral Aerobic Blood Culture - Final No growth in 5 days 08/21/18 11:11 Blood - Peripheral Anaerobic Blood Culture - Final No growth in 5 days Imaging Imaging: Impressions Venous Doppler Study 08/26/18 14:51 CONCLUSION: 1. The study is negative for bilateral lower extremity deep venous thrombosis. Procedures Procedures: None Assessment and Plan (1) Sepsis: Code(s): A41.9 - Sepsis, unspecified organism Status: Acute (2) Acute UTI: Code(s): N39.0 - Urinary tract infection, site not specified Status: Acute Plan Bacteremia blood cultures positive GNR Repeat blood culture 08/21/18 Appreciate input from infectious disease now signed off Continue with Rocephin until August 30, 2018, unless repeat blood culture positive Urinary tract infection-E. coli and pansensitive Currently on IV Rocephin daily until August 30, 2018 Sepsis Now resolved Elevated d-dimer Combined with ankle pain and shortness of breath, highly suspicious for embolism Oxygen saturations remain within normal limits Bilateral lower extremity Doppler study ordered stat, test results pending D-dimer returned at 4.2 Hypertension Continue with Lopressor 25 mg p.o. twice daily History of hypothyroid, schizophrenia Outpatient medications DVT prophylaxis Bilateral SCDs Progress Note: Quality VTE Deep Vein Thrombosis/Pulmonary Embolism Present on Admission: No _ (1) Sepsis Qualifiers: Sepsis type:
[2018-08-27] MEDS: Acetaminophen 325 MG Tablet PO PRN (04:57)
[2018-08-27] MEDS: Levothyroxine 88 MCG Tablet PO SCH (04:59)
[2018-08-27 06:37] LABS: Calcium 8.5 mg/dL (8.5-10.1); Carbon Dioxide 25.3 meq/L (21.0-32.0); Potassium 3.5 meq/L (3.5-5.1)
[2018-08-27] MEDS ORDERED: Ibuprofen 600 MG Tablet PO PRN (08:42)
[2018-08-27] MEDS: Pantoprazole Sodium 20 MG DR Tablet PO SCH (10:12)
[2018-08-27] MEDS: Metoprolol Tartrate 25 MG Tablet PO SCH ×2 (10:12→20:19)
[2018-08-27] MEDS: Gabapentin 300 MG Capsule PO SCH (10:12)
[2018-08-27] MEDS: OLANZapine 15 MG Tablet PO SCH (10:12)
--- NOTE | 2018-08-27 11:36 | P.PNIM ---
Subjective Interval history: Patient complained of left leg pain yesterday with subjective shortness of breath. Oxygenation was within normal limits. D-dimer was elevated and a Doppler study of her bilateral lower extremities was ordered, the results returned normal. Today states she is feeling better but does still have some tenderness to touch of her left posterior calf. Physical Exam Vital signs: Last Vital Signs Temp 97.6 F 08/27/18 08:00 Pulse 71 08/27/18 10:10 Resp 16 08/27/18 10:10 BP 134/79 08/27/18 08:00 Pulse Ox 95 08/27/18 08:00 Intake & Output 08/25/18 08/26/18 08/27/18 08/28/18 06:59 06:59 06:59 06:59 Intake Total 580 / 580 1420 / 1420 700 / 700 Balance 580 / 580 1420 / 1420 700 / 700 Weight 73 kg 71.4 kg 70.7 kg Narrative: GENERAL: NAD SKIN: Warm and dry. HEAD: Atraumatic. Normocephalic. EYES: Pupils equal and round. No scleral icterus. No injection or drainage. ENT: No nasal bleeding or discharge. Mucous membranes pink and moist. NECK: Trachea midline. No JVD. CARDIOVASCULAR: Regular rate and rhythm. RESPIRATORY: No accessory muscle use. Clear to auscultation. Breath sounds equal bilaterally. GASTROINTESTINAL: Abdomen soft, non-tender, nondistended. Hepatic and splenic margins not palpable. MUSCULOSKELETAL: Extremities without clubbing, cyanosis, or edema. No obvious deformities. NEUROLOGICAL: Awake and alert. No obvious cranial nerve deficits. Motor grossly within normal limits. Five out of 5 muscle strength in the arms and legs. Normal speech. PSYCHIATRIC: Appropriate mood and affect; insight and judgment normal. Results Labs CBC & Chem 7: 08/26/18 08:42 08/27/18 04:21 Labs: Microbiology 08/21/18 11:19 Blood - Peripheral Aerobic Blood Culture - Final No growth in 5 days 08/21/18 11:19 Blood - Peripheral Anaerobic Blood Culture - Final No growth in 5 days 08/21/18 11:11 Blood - Peripheral Aerobic Blood Culture - Final No growth in 5 days 08/21/18 11:11 Blood - Peripheral Anaerobic Blood Culture - Final No growth in 5 days Imaging Imaging: Impressions Venous Doppler Study 08/26/18 14:51 CONCLUSION: 1. The study is negative for bilateral lower extremity deep venous thrombosis. Procedures Procedures: None Assessment and Plan (1) Sepsis: Code(s): A41.9 - Sepsis, unspecified organism Status: Acute (2) Acute UTI: Code(s): N39.0 - Urinary tract infection, site not specified Status: Acute Plan Bacteremia blood cultures positive GNR Repeat blood culture 08/21/18 Appreciate input from infectious disease now signed off Continue with Rocephin until August 30, 2018, unless repeat blood culture positive Urinary tract infection-E. coli and pansensitive Currently on IV Rocephin daily until August 30, 2018 Sepsis Now resolved Elevated d-dimer Combined with left calf pain was suspicious for DVT, Doppler study was negative Oxygen saturations remain within normal limits Recommend ibuprofen for muscular or varicose pain at this point Hypertension Continue with Lopressor 25 mg p.o. twice daily History of hypothyroid, schizophrenia Outpatient medications DVT prophylaxis Bilateral SCDs Discharge planning Patient is on Rocephin until August 30, consider home health care Progress Note: Quality VTE Deep Vein Thrombosis/Pulmonary Embolism Present on Admission: No _ (1) Sepsis Qualifiers: Sepsis type:
[2018-08-28] MEDS: Levothyroxine 88 MCG Tablet PO SCH (05:41)
[2018-08-28] MEDS: Metoprolol Tartrate 25 MG Tablet PO SCH ×2 (08:48→20:08)
[2018-08-28] MEDS: Gabapentin 300 MG Capsule PO SCH (08:48)
[2018-08-28] MEDS: OLANZapine 15 MG Tablet PO SCH (08:48)
[2018-08-28] MEDS: Pantoprazole Sodium 20 MG DR Tablet PO SCH (08:48)
--- NOTE | 2018-08-28 15:47 | P.PNIM ---
Subjective Interval history: 57-year-old female admitted for urinary tract infection and suspected sepsis. Infectious disease recommended treatment with Rocephin until August 30. She has Medicaid and therefore cannot receive IV antibiotics with home health care. She will be with us until the . She is appropriate for discharge otherwise. Physical Exam Vital signs: Last Vital Signs Temp 97.4 F L 08/28/18 12:00 Pulse 67 08/28/18 12:00 Resp 18 08/28/18 12:00 BP 142/86 H 08/28/18 12:00 Pulse Ox 95 08/28/18 12:00 Intake & Output 08/26/18 08/27/18 08/28/18 08/29/18 06:59 06:59 06:59 06:59 Intake Total 1420 / 1420 700 / 700 880 / 880 100 / 100 Balance 1420 / 1420 700 / 700 880 / 880 100 / 100 Weight 71.4 kg 70.7 kg 71 kg Narrative: GENERAL: NAD SKIN: Warm and dry. HEAD: Atraumatic. Normocephalic. EYES: Pupils equal and round. No scleral icterus. No injection or drainage. ENT: No nasal bleeding or discharge. Mucous membranes pink and moist. NECK: Trachea midline. No JVD. CARDIOVASCULAR: Regular rate and rhythm. RESPIRATORY: No accessory muscle use. Clear to auscultation. Breath sounds equal bilaterally. GASTROINTESTINAL: Abdomen soft, non-tender, nondistended. Hepatic and splenic margins not palpable. MUSCULOSKELETAL: Extremities without clubbing, cyanosis, or edema. No obvious deformities. NEUROLOGICAL: Awake and alert. No obvious cranial nerve deficits. Motor grossly within normal limits. Five out of 5 muscle strength in the arms and legs. Normal speech. PSYCHIATRIC: Appropriate mood and affect; insight and judgment normal. Results Labs CBC & Chem 7: 08/26/18 08:42 08/27/18 04:21 Procedures Procedures: None Assessment and Plan (1) Sepsis: Code(s): A41.9 - Sepsis, unspecified organism Status: Acute (2) Acute UTI: Code(s): N39.0 - Urinary tract infection, site not specified Status: Acute Plan Bacteremia blood cultures positive GNR Appreciate input from infectious disease now signed off Continue with Rocephin until August 30, 2018, unless repeat blood culture positive Urinary tract infection-E. coli and pansensitive Currently on IV Rocephin daily until August 30, 2018 Sepsis Now resolved Elevated d-dimer Incidental finding, DVT workup was negative Recommend ibuprofen for muscular or varicose pain at this point Hypertension Continue with Lopressor 25 mg p.o. twice daily History of hypothyroid, schizophrenia Outpatient medications DVT prophylaxis Bilateral SCDs Discharge planning Patient is on Rocephin until August 30 Progress Note: Quality VTE Deep Vein Thrombosis/Pulmonary Embolism Present on Admission: No _ (1) Sepsis Qualifiers: Sepsis type:
[2018-08-29] MEDS: Levothyroxine 88 MCG Tablet PO SCH (05:18)
[2018-08-29] MEDS: Gabapentin 300 MG Capsule PO SCH (09:47)
[2018-08-29] MEDS: Pantoprazole Sodium 20 MG DR Tablet PO SCH (09:47)
[2018-08-29] MEDS: OLANZapine 15 MG Tablet PO SCH (09:47)
[2018-08-29] MEDS: Metoprolol Tartrate 25 MG Tablet PO SCH ×2 (09:47→20:47)
[2018-08-29] MEDS ORDERED: Benzonatate 100 MG Capsule PO PRN (10:00)
--- NOTE | 2018-08-29 14:05 | P.PNIM ---
Subjective Interval history: Patient is on the second to last day of her Rocephin treatment. She is optimistic about going home and is scheduled for discharge tomorrow. She has no new complaints. Physical Exam Vital signs: Last Vital Signs Temp 97.4 F L 08/29/18 12:00 Pulse 70 08/29/18 12:00 Resp 16 08/29/18 12:00 BP 135/75 08/29/18 12:00 Pulse Ox 96 08/29/18 12:00 Intake & Output 08/27/18 08/28/18 08/29/18 08/30/18 06:59 06:59 06:59 06:59 Intake Total 700 / 700 880 / 880 1000 / 1000 100 / 100 Balance 700 / 700 880 / 880 1000 / 1000 100 / 100 Weight 70.7 kg 71 kg 71 kg Narrative: GENERAL: NAD SKIN: Warm and dry. HEAD: Atraumatic. Normocephalic. EYES: Pupils equal and round. No scleral icterus. No injection or drainage. ENT: No nasal bleeding or discharge. Mucous membranes pink and moist. NECK: Trachea midline. No JVD. CARDIOVASCULAR: Regular rate and rhythm. RESPIRATORY: No accessory muscle use. Clear to auscultation. Breath sounds equal bilaterally. GASTROINTESTINAL: Abdomen soft, non-tender, nondistended. Hepatic and splenic margins not palpable. MUSCULOSKELETAL: Extremities without clubbing, cyanosis, or edema. No obvious deformities. NEUROLOGICAL: Awake and alert. No obvious cranial nerve deficits. Motor grossly within normal limits. Five out of 5 muscle strength in the arms and legs. Normal speech. PSYCHIATRIC: Appropriate mood and affect; insight and judgment normal. Results Labs CBC & Chem 7: 08/26/18 08:42 08/27/18 04:21 Procedures Procedures: None Assessment and Plan (1) Sepsis: Code(s): A41.9 - Sepsis, unspecified organism Status: Acute (2) Acute UTI: Code(s): N39.0 - Urinary tract infection, site not specified Status: Acute Plan Bacteremia blood cultures positive GNR Appreciate input from infectious disease now signed off Continue with Rocephin until August 30, 2018, unless repeat blood culture positive Urinary tract infection-E. coli and pansensitive Currently on IV Rocephin daily until August 30, 2018 Sepsis Now resolved Elevated d-dimer Incidental finding, DVT workup was negative Recommend ibuprofen for muscular or varicose pain at this point Hypertension Continue with Lopressor 25 mg p.o. twice daily History of hypothyroid, schizophrenia Outpatient medications DVT prophylaxis Bilateral SCDs Discharge planning Discharge planning for tomorrow Progress Note: Quality VTE Deep Vein Thrombosis/Pulmonary Embolism Present on Admission: No _ (1) Sepsis Qualifiers: Sepsis type:
[2018-08-30] MEDS: Levothyroxine 88 MCG Tablet PO SCH (05:32)
[2018-08-30 08:32] VITALS: BP 134/86; TEMP 97.9; O2SAT 96
[2018-08-30 09:49] VITALS: PULSE 81; RESP 16
[2018-08-30] MEDS: Gabapentin 300 MG Capsule PO SCH (10:27)
[2018-08-30] MEDS: OLANZapine 15 MG Tablet PO SCH (10:27)
[2018-08-30] MEDS: Pantoprazole Sodium 20 MG DR Tablet PO SCH (10:27)
[2018-08-30] MEDS: Metoprolol Tartrate 25 MG Tablet PO SCH (10:27)
--- NOTE | 2018-08-30 12:37 | P.DS ---
DS: Providers Date of admission: 08/20/18 15:02 Primary care physician: UNKNOWN Consults: 08/21/18 10:09 Consult to Infectious Diseases Routine Consulting Provider: Jung Macias Reason for Consultation: 57-year-old admitted with sepsis, UTI now with bacteremia please evaluate and advise for therapy Notified:: Service Spoke with:: yuriy Date Notified:: 08/21/18 Time Notified:: 10:16 Ordering Provider: BRYCE 08/21/18 12:23 HUB Only Consult Order Routine Consulting Provider: [facility],Insurance Brief History from admission: 57-year-old female with past medical history of hypertension, hypothyroidism, schizophrenia was brought to the emergency department for evaluation of altered mental status change times 2-3 days duration. Patient was confused during my exam and only oriented to self, place but not date or time. Per Ed note, "patient Patient also been sweaty at home and she is been running a fever. According to him she is just been acting odd and he is unsure if she has been taking her medications. She is unable to provide much of her history it is very unfocused and appears ill.". She only complains of shortness of breath but denies any dysuria symptoms DS: Diagnosis Discharge Diagnosis (1) Sepsis: Status: Acute (2) Acute UTI: Status: Acute DS: Summary 57-year-old female admitted for UTI and sepsis approximately 10 days ago. She received 10 days of Rocephin, infectious disease recommended treatment until August 30, which is today. She has been able to ambulate with physical therapy but needs to use a walker for balance and safety. A walker was provided to her yesterday and arrangements were made for her to go home today. She is medically cleared for discharge and will be going home today. She is instructed to follow-up with her primary care doctor in approximately 2 weeks. Time Spent with Patient Total time spent providing and/or coordinating discharge services: Less than 30 minutes Quality: VTE Deep Vein Thrombosis/Pulmonary Embolism Present on Admission: No Results Procedures completed during hospitalization: None Impressions ITS Impressions Head CT 08/20/18 13:05 CONCLUSION: 1. Negative noncontrast head CT with motion artifact. . Abdomen/Pelvis CT 08/20/18 14:51 CONCLUSION: 1. Nonspecific bowel gas pattern which may represent an ileus or gastroenteritis. 2. No evidence of primary tumor or adenopathy. Abdomen X-Ray 08/21/18 00:00 CONCLUSION: Mildly nonspecific, nonobstructive bowel gas pattern most characteristic of a mild ileus and/or gastroenteritis. Chest X-Ray 08/22/18 14:53 CONCLUSION: Probable consolidation developing right base. PA and lateral chest would be of benefit Venous Doppler Study 08/26/18 14:51 CONCLUSION: 1. The study is negative for bilateral lower extremity deep venous thrombosis. Discharge Plan Discharge Disposition Patient Disposition: Discharge Home Discharge Condition Condition: Fair Discharge Order Discharge Orders: Discharge Order (Routine); Ordered 08/30/18 Ordered By: Vitaly Tabor Discharge Details Anticipated Discharge Date: 08/30/18 Discharge Comment: D/C home on Aug 30 following final Rocephin dose Physicians Team Primary Care Provider: UNKNOWN, Attending Provider: Vitaly Tabor Other Providers: Jung Macias ; [facility],Insurance Rxs /Orders / Referrals /Forms Prescriptions: New albuterol sulfate [Ventolin HFA] 90 mcg/actuation Hfa Aerosol Inhaler 2 puff Inhalation Q4H PRN (Reason: Cough) Qty: 8.5 RF: 0 Continue levothyroxine 88 mcg Tablet 88 mcg PO DAILY RF: 0 benztropine 1 mg Tablet 1 mg PO DAILY RF: 0 gabapentin 300 mg Capsule 300 mg PO DAILY RF: 0 omeprazole 20 mg Capsule,Delayed Release(Dr/Ec) 20 mg PO DAILY RF: 0 olanzapine 15 mg Tablet 15 mg PO DAILY RF: 0 Ambulatory Orders / Order Sets / DME: Walker Folding (Routine) Location: Determined by Patient Ordered By: Vitaly Tabor Referrals: UNKNOWN, [Primary Care Provider] - See Instructions ( [employer] [phone] [place], [place] [address] offers same day APPT. Call the morning you would like to be seen office opens at 8:00am ) Discharge Instructions Patient Printed Instructions: Albuterol (By breathing), Urinary Tract Infection in Women (DC), Sepsis (GEN), Altered Mental Status (GEN) Status ED Status: Left Department Discharge Information Discharge Date/Time: 08/30/18 11:32
== END 2018-08-30 11:32 | disposition home or self-care (01) ==
LOC: NEPC 12:12 → NEDA 15:02 → N07 17:33
PROVIDERS: ADMIT Family Medicine; ATTEND Family Medicine
DX: F05 Delirium due to known physiological condition; N39.0 Urinary tract infection, site not specified; Z87.891 Personal history of nicotine dependence; N17.9 Acute kidney failure, unspecified; E87.6 Hypokalemia; A41.51 Sepsis due to Escherichia coli [E. coli]; I12.9 Hypertensive chronic kidney disease with stage 1 through stage 4 chronic kidney disease, or unspecified chronic kidney disease; R65.20 Severe sepsis without septic shock; N18.3 Chronic kidney disease, stage 3 (moderate); R06.02 Shortness of breath; R79.1 Abnormal coagulation profile; F20.9 Schizophrenia, unspecified; E03.9 Hypothyroidism, unspecified; G93.41 Metabolic encephalopathy